=== PATIENT | male | born 1965 | race Caucasian/White ===

== ENCOUNTER 2016-05-14 13:12 | Inpatient (IN) | payer OTHER ==
[~2016-05-14] VITALS: Ht 172.7 cm; Wt 77.3 kg
[~2016-05-14 13:12] MED LIST: AMLO5TAB4 PO; ASPI81TA3 PO; ATOR10TA65 PO; FAMO20TA18 PO; FLUC100T PO; HYDR-3498 PO; LANT3I SC; THIA100T56 PO; VANC1PLA9 IV
--- NOTE | 2016-05-14 15:35 | ERA ---
ER Documentation Chief Complaint Date/Time DATE: 05/14/16 TIME: 15:35 Chief Complaint FEVER/DIZZINESS/RIGHT EYE SWELLING/BILAT FOOT PAIN HPI The patient is a 50-year-old male, presenting to the ER with multiple complaints he complains of right foot acute on chronic pain for 3 days, fever, cough, congestion, for 3 days. He also complained of right eye photophobia for the last 10 days and drooping of the right upper eyelid. He denies neck pain, chest pain, dyspnea, complaints of vague abdominal pain, vomiting, denies dysuria, diarrhea. He is smokes but quit it recently about 2 weeks ago, denies drinking Past medical history: Dyslipidemia, hypertension, diabetes mellitus, peripheral vascular disease, history of left foot osteomyelitis Past surgical history: Left lower extremity vascular bypass ROS All systems reviewed and are negative except as per history of present illness. Medications Home Meds Active Scripts Atorvastatin Calcium (Atorvastatin Calcium) 10 Mg Tablet, 10 MG PO QHS, #30 TAB Prov:LOUANN MONTIEL MD 01/18/16 Aspirin* (Aspirin* Chew) 81 Mg Tab.chew, 81 MG PO DAILY, #30 TAB.CHEW Prov:LOUANN MONTIEL MD 12/26/15 Insulin Glargine* (Lantus*) 100 Unit/Ml Soln, 25 UNIT SC QHS, #1 VIAL Prov:LOUANN MONTIEL MD 12/26/15 Reported Medications Insulin Lispro (Humalog Kwikpen U-100) 100 Unit/1 Ml Insuln.pen, 10 UNIT SQ BEFORE MEALS 05/14/16 Hydrocodone/Acetaminophen ([place] 10-325 Tablet) 1 Each Tablet, 1 EACH PO Q4H, TAB 05/14/16 Discontinued Scripts Fluconazole* (Diflucan*) 100 Mg Tablet, 100 MG PO DAILY, #30 TAB Prov:LOUANN MONTIEL MD 12/26/15 Vancomycin/0.9 % Sod Chloride (Vanco 1 Gram/250 ml-0.9% NaCl) 1 Gm/250 Ml Plast..bag, 1 GM IV DAILY, #45 Prov:LOUANN MONTIEL MD 12/26/15 Amlodipine Besylate* (Norvasc*) 5 Mg Tablet, 5 MG PO DAILY, #30 TAB Prov:LOUANN MONTIEL MD 12/26/15 Thiamine* (Vitamin B-1*) 100 Mg Tablet, 100 MG PO DAILY, #30 TAB Prov:LOUANN MONTIEL MD 12/26/15 Hydrocodone Bit-Acetaminophen (Hydrocodone Bit-APAP) 5-325MG Tablet, 1 TAB PO Q6H Y for MODERATE PAIN LEVEL 4-6, #1 TAB Prov:LOUANN MONTIEL MD 12/26/15 Famotidine* (Famotidine*) 20 Mg Tablet, 20 MG PO DAILY, #30 TAB Prov:LOUANN MONTIEL MD 12/26/15 Allergies Allergies: Coded Allergies: No Known Allergy (Unverified , 05/14/16) PMhx/Soc History of Surgery: Yes (see notes) Anesthesia Reaction: No Hx Neurological Disorder: No Hx Respiratory Disorders: No Hx Cardiac Disorders: No Hx Psychiatric Problems: No Hx Miscellaneous Medical Probl: No Hx Alcohol Use: No Hx Substance Use: No Hx Tobacco Use: No Physical Exam Vitals Vital Signs Date Time Temp Pulse Resp B/P Pulse Ox O2 Delivery O2 Flow Rate FiO2 05/14/16 18:05 98.8 106 16 111/60 96 Room Air 05/14/16 14:08 103.6 152 23 92/52 97 Physical Exam Const: No acute distress. Head: Atraumatic. Eyes: Normal Conjunctiva. Right ptosis, no eye entrapment ENT: Normal External Ears, Nose and Mouth. Neck: Full range of motion. No meningismus. Resp: Clear to auscultation bilaterally. Cardio: Regular rate and rhythm, no murmurs. Abd: Soft, non distended, normal bowel sounds, non tender. Skin: No petechiae or rashes. Back: No midline or flank tenderness. Ext: No cyanosis, or edema. Chronic plantar right foot ulcer with erythema edema Neur: Awake and alert. No focal deficit Psych: Normal Mood and Affect. Result Diagram: 05/14/16 1550 05/14/16 1550 Results 24 hrs Laboratory Tests Test 05/14/16 15:50 05/14/16 15:54 Activated Partial Thromboplast Time 40.5Sec Alanine Aminotransferase (ALT/SGPT) 26IU/L Albumin 2.8g/dl Albumin/Globulin Ratio 0.73 Alkaline Phosphatase 206IU/L Anion Gap 14 Aspartate Amino Transf (AST/SGOT) 47IU/L Blood Morphology Comment Blood Urea Nitrogen 40mg/dl Calcium Level 8.4mg/dl Carbon Dioxide Level 29mmol/L Chloride Level 100mmol/L Creatinine 2.25mg/dl Direct Bilirubin 0.00mg/dl Erythrocyte Sedimentation Rate 126mm/Hr Globulin 3.80g/dl Glucose Level 170mg/dl Hematocrit 32.6% Hemoglobin 11.0g/dl INR International Normalized Ratio 1.16 Indirect Bilirubin 0.0mg/dl Lactic Acid Level 2.2mmol/L Lymphocytes # 0.310^3/ul Lymphocytes % 2.0% Mean Corpuscular Hemoglobin 28.1pg Mean Corpuscular Hemoglobin Concent 33.7g/dl Mean Corpuscular Volume 83.4fl Mean Platelet Volume 8.9fl Monocytes # 0.310^3/ul Monocytes % 2.0% Neutrophils # 13.210^3/ul Neutrophils % 96.0% Platelet Count 89096^3/UL Potassium Level 4.3mmol/L Prothrombin Time 14.9Sec Prothrombin Time Ratio 1.2 Red Blood Count 3.9010^6/ul Red Cell Distribution Width 16.6% Sodium Level 139mmol/L Total Bilirubin 0.0mg/dl Total Protein 6.6g/dl Troponin I 0.073ng/ml White Blood Count 13.810^3/ul Bedside Glucose 196mg/dL Current Medications Medications (Trade) Dose Ordered Sig/[place] Route PRN Reason Start Time Stop Time Status Last Admin Dose Admin Sodium Chloride (NS) 2,330 ml @ 2,330 mls/hr BOLUS X1 ONCE IV 05/14/16 16:00 05/14/16 16:59 DC 05/14/16 16:13 Acetaminophen 650 mg 650 mg ONCE ONCE PO 05/14/16 16:00 05/14/16 16:01 DC 05/14/16 16:09 Vancomycin HCl 250 ml @ 125 mls/hr ONCE IVPB 05/14/16 16:00 05/14/16 17:59 DC 05/14/16 17:09 Piperacillin Sod/ Tazobactam Sod (Zosyn 3.375gm/ 100 ml (Pmx)) 100 ml @ 200 mls/hr ONCE ONCE IVPB 05/14/16 16:00 05/14/16 16:34 DC 05/14/16 16:13 Ondansetron HCl (Zofran Inj) 4 mg ONCE STAT IV 05/14/16 16:14 05/14/16 16:15 DC 05/14/16 16:25 Ondansetron HCl 4 mg 4 mg STK-MED ONCE .ROUTE 05/14/16 16:14 05/14/16 16:15 DC Piperacillin Sod/ Tazobactam Sod (Zosyn 2.25gm/ 50ml (Pmx)) 50 ml @ 100 mls/hr ONCE ONCE IVPB 05/14/16 17:00 05/14/16 17:29 Cancel Morphine Sulfate (morphine) 2 mg ONCE ONCE IV 05/14/16 17:30 05/14/16 17:31 DC 05/14/16 17:21 Ondansetron HCl (Zofran Inj) 4 mg ONCE STAT IV 05/14/16 17:08 05/14/16 17:10 DC 05/14/16 17:20 IV Flush (NS 3 ml) 3 ml PER PROTOCOL IV 05/14/16 17:30 UNV Ondansetron HCl (Zofran Inj) 4 mg Q6H PRN IV NAUSEA AND/OR VOMITING 05/14/16 17:30 UNV Acetaminophen (Tylenol Tab) 650 mg Q6H PRN PO PAIN LEVEL 1-3 OR FEVER 05/14/16 17:30 UNV Acetaminophen/ Hydrocodone Bitart ([place] (5/325)) 1 tab Q6H PRN PO MODERATE PAIN LEVEL 4-6 05/14/16 17:30 UNV Morphine Sulfate (morphine) 2 mg Q4H PRN IV SEVERE PAIN LEVEL 7-10 05/14/16 17:30 UNV Docusate Sodium (Colace) 100 mg Q12H PRN PO CONSTIPATION 05/14/16 17:30 UNV Magnesium Hydroxide (Milk Of Mag) 30 ml DAILY PRN PO CONSTIPATION 05/14/16 17:30 UNV Sodium Biphosphate/ Sodium Phosphate (Fleet Enema) 133 ml DAILY PRN AR CONSTIPATION 05/14/16 17:30 UNV Famotidine (Pepcid) 20 mg Q12 PO 05/14/16 21:00 UNV Lorazepam 0.5 mg 0.5 mg Q6H PRN IV ANXIETY 05/14/16 17:30 UNV Sodium Chloride (NS) 1,000 ml @ 100 mls/hr Q10H IV 05/14/16 17:06 UNV Albuterol/ Ipratropium 3 ml 3 ml Q4H RESP THERAPY PRN HHN SHORTNESS OF BREATH 05/14/16 17:30 UNV Piperacillin Sod/ Tazobactam Sod (Zosyn 3.375gm/ 100 ml (Pmx)) 100 ml @ 200 mls/hr Q6 IVPB 05/14/16 18:00 UNV Vancomycin HCl (Vanco Iv Per Pharmacy) VANCOMYCIN PER PHARMACY NOTE XX 05/14/16 17:30 UNV Hydralazine HCl (Apresoline) 10 mg Q6H PRN IV ELEVATED BLOOD PRESSURE 05/14/16 17:30 UNV Nitroglycerin (Nitroglycerin (Sl Tab) 0.4 Mg) 1 tab Q5M PRN SL ANGINA 05/14/16 17:30 UNV Insulin Aspart (Novolog Insulin Pen) NOVOLOG *MILD* ALGORI... Q4 SC 05/14/16 21:00 UNV Miscellaneous Information (* Miscellaneous Pharmacy Order) HYPOGLYCEMIA PROTOCOL w... ONCE ONCE XX 05/14/16 17:30 05/14/16 17:31 UNV Miscellaneous Information (* Miscellaneous Pharmacy Order) Discontinue Glyburide, Glipizide,... ONCE ONCE XX 05/14/16 17:30 05/14/16 17:31 UNV Miscellaneous Information (* Miscellaneous Pharmacy Order) Discontinue all previ... ONCE ONCE XX 05/14/16 17:30 05/14/16 17:31 UNV Aspirin (Aspirin) 81 mg DAILY PO 05/15/16 09:00 UNV Atorvastatin Calcium (Lipitor) 10 mg QHS PO 05/14/16 21:00 UNV Insulin Glargine (Lantus) 25 unit QHS SC 05/14/16 21:00 UNV Miscellaneous Information 10 unit BEFORE MEALS SQ 05/14/16 17:30 UNV Procedures/[place] [id number] Radiology Main Line: [phone] DIAGNOSTIC IMAGING REPORT Patient: IKER GONZALEZ : 1965 Age: 50 Sex: M MR #: [id number] DOS: 05/14/16 1544 Ordering MD: LYNDSEY RAMÍREZ MD Location: E/R Room/Bed: PROCEDURE: XR right foot. CLINICAL INDICATION: Sepsis TECHNIQUE: Three views are available for review. COMPARISON: 12/21/2015 FINDINGS: There is soft tissue swelling with gas in the soft tissues overlying the first metatarsal head (cellulitis). There is no radiographic evidence of osteomyelitis. There is normal mineralization. There is a hallux valgus deformity. There is moderate first metatarsal proximal phalangeal osteoarthrosis. There is a probable second metatarsal proximal phalangeal arthroplasty. No fracture or osseous lesion is identified. The joints are unremarkable. IMPRESSION: Soft tissue swelling with gas in the soft tissues overlying the first metatarsal head (cellulitis) No radiographic evidence of osteomyelitis Hallux valgus deformity. Moderate first metatarsal proximal phalangeal osteoarthrosis RPTAT: HGDB .Say Us MD, MD Date Time Electronically viewed and signed by .Say Us MD, MD on 05/14/2016 16:48 .B/ CC: LYNDSEY RAMÍREZ MD [place] [id number] Radiology Main Line: [phone] DIAGNOSTIC IMAGING REPORT Patient: IKER GONZALEZ : 1965 Age: 50 Sex: M MR #: [id number] DOS: 05/14/16 1544 Ordering MD: LYNDSEY RAMÍREZ MD Location: E/R Room/Bed: PROCEDURE: XR Chest. CLINICAL INDICATION: Sepsis TECHNIQUE: Chest AP portable COMPARISON: 12/22/2015 FINDINGS: The mediastinal structures are unremarkable. There is calcification of the thoracic aorta (consistent with atherosclerosis). The heart is normal in size and configuration. The pulmonary vascularity is normal. The lung baires are unremarkable. No consolidation is identified. The pleural spaces are unremarkable. The osseous structures are unremarkable. IMPRESSION: Calcification of the thoracic aorta (consistent with atherosclerosis). No evidence for active cardiopulmonary disease. RPTAT: HGDB .Say Us MD, MD Date Time Electronically viewed and signed by .Say Us MD, MD on 05/14/2016 16:34 .B/ CC: LYNDSEY RAMÍREZ MD EKG: Read by emergency physician Rate/Rhythm: Sinus tachycardia 110 beats per min QRS, ST, T-waves: No ST elevation, no T wave inversion Impression: Abnormal EKG MEDICAL MAKING DECISION: The patient is a 50-year-old male, presenting with acute severe sepsis, acute right foot diabetic ulcer, acute kidney injury, acute binocular diplopia and right ptosis. He was treated with normal saline 30 mL/kg IV, vancomycin IV, Zosyn IV, morphine 2 mg IV for pain and Zofran 4 mg IV for nausea and Tylenol for fever with good response. The differential diagnoses considered include but are not limited to osteomyelitis, gangrene, abscess, pneumonia, cystitis Admit MDM: Patient's infectious symptoms have not stabilized and the patient is at risk of rapid decompensation. The patient will be admitted for careful hydration, antibiotic therapy, and infectious source control. Severe Sepsis criteria: Infectious source: Right foot diabetic ulcer End organ damage indicated by: Lactate > 2.0 mmol/L Sepsis Management: Time of recognition of severe sepsis/septic shock: 4 pm Within 3 hours of recognition: Blood cultures x 2 before broad-spectrum antibiotics: Yes 30 ml/kg NS bolus completed Initial lactate 2.2 Repeat lactate pending Critical Care: Critical care time 35 minutes Emergent fluid management while maintaining close respiratory support. Provision of immediate and broad-spectrum antibiotic therapy. Simultaneous assessment for possible sources in order to direct targeted therapy. Consideration for invasive and chemical support to prevent cardiopulmonary collapse. Septic Shock Assessment: Any lactic acid > 4.0 no Persistent hypotension (SBP < 90 or 40 mmHg drop, MAP < 65) despite 30 mL/kg IV fluid bolusno Departure Diagnosis: Primary Impression: Severe sepsis Additional Impressions: Diabetic ulcer of right foot Acute kidney injury Binocular vision disorder with diplopia Ptosis, right Anemia Abnormal LFTs Condition: Stable Comments I discussed the findings with the patient. I discussed the patient with the hospitalist Dr. Bee who was made aware of the lab, the treatment, the patient condition. The patient is admitted to medical surgery bed at 4:30 PM LYNDSEY RAMÍREZ MD May 14, 2016 15:35
[2016-05-14] MEDS ORDERED: ACETAMINOPHEN 325 MG TAB PO ONE (16:00)
[2016-05-14] MEDS ORDERED: PIPER-TAZO 3.375 GM IV (PMX) 100 ML IVPB ONE (16:00)
[2016-05-14] MEDS ORDERED: VANCOMYCIN 1 GM (PMX) 250 ML IVPB SCH (16:00)
[2016-05-14] MEDS ORDERED: SOD CHLORIDE 0.9% 2,330 ML IV ONE (16:00)
[2016-05-14] MEDS ORDERED: ONDANSETRON 4 MG INJ ONE (16:14)
[2016-05-14] MEDS ORDERED: ONDANSETRON 4 MG INJ IV STA ×2 (16:14→17:08)
[2016-05-14 16:18] LABS: HEMATOCRIT 32.6 % (42.0-52.0); MEAN CORPUSCULAR HEMOGLOBIN 28.1 pg (29.0-33.0); MEAN CORPUSCULAR HGB CONC 33.7 g/dl (32.0-37.0); MEAN CORPUSCULAR VOLUME 83.4 fl (82.0-101.0); MEAN PLATELET VOLUME 8.9 fl (7.4-10.4); PLATELET COUNT 276 10^3/UL (140-440); RED CELL DISTRIBUTION WIDTH 16.6 % (11.5-14.5); UNCORRECTED WBC 13.8 10^3/ul (4.8-10.8); WHITE BLOOD COUNT 13.8 10^3/ul (4.8-10.8)
[2016-05-14 16:21] LABS: CONDITION 1; INR 1.16; LH ANALYZER COMMENTS 1; PROTIME 14.9 Sec (12.2-14.2); PT RATIO 1.2; SUSPECT 1
[2016-05-14 16:22] LABS: PARTIAL THROMBOPLASTIN TIME 40.5 Sec (25.0-35.0)
[2016-05-14 16:23] LABS: ALBUMIN 2.8 g/dl (3.3-4.9)
[2016-05-14 16:24] LABS: POTASSIUM 4.3 mmol/L (3.5-5.1)
[2016-05-14 16:26] LABS: ALBUMIN/GLOBULIN RATIO 0.73; CREATININE 2.25 mg/dl (0.61-1.24); TOTAL PROTEIN 6.6 g/dl (6.1-8.1)
[2016-05-14 16:27] LABS: CALCIUM 8.4 mg/dl (8.4-10.2)
[2016-05-14] MEDS ORDERED: HYDR-902 PO (16:28)
[2016-05-14] MEDS ORDERED: INSU100I12 SQ (16:29)
[2016-05-14 16:35] LABS: LYMPHOCYTES # 0.3 10^3/ul (0.8-2.9); MONOCYTE # 0.3 10^3/ul (0.3-0.9); NEUTROPHIL # 13.2 10^3/ul (1.6-7.5)
--- NOTE | 2016-05-14 16:35 | RADRPT ---
PROCEDURE: XR Chest. CLINICAL INDICATION: Sepsis TECHNIQUE: Chest AP portable COMPARISON: 12/22/2015 FINDINGS: The mediastinal structures are unremarkable. There is calcification of the thoracic aorta (consiste nt with atherosclerosis). The heart is normal in size and configuration. The pulmonary vascularity is normal. The lung baires are unremarkable. No consolidation is identified. The pleural spaces are unremarkable. The osseous structures are unremarkable. IMPRESSION: Calcification of the thoracic aorta (consistent with atherosclerosis). No evidence for active cardiopulmonary disease. RPTAT: HGDB .Say Us MD, MD Date Time Electronically viewed and signed by .Say Us MD, on 05/14/2016 16:34 .B/
[2016-05-14 16:38] LABS: TROPONIN-I 0.073 ng/ml (0.00-0.12)
--- NOTE | 2016-05-14 16:49 | RADRPT ---
PROCEDURE: XR right foot. CLINICAL INDICATION: Sepsis TECHNIQUE: Three views are available for review. COMPARISON: 12/21/2015 FINDINGS: There is soft tissue swelling with gas in the soft tissues overlying the first metatarsal head (cell ulitis). There is no radiographic evidence of osteomyelitis. There is normal mineralization. There is a hallux valgus deformity. There is moderate first metata rsal proximal phalangeal osteoarthrosis. There is a probable second metatarsal proximal phalangeal a rthroplasty. No fracture or osseous lesion is identified. The joints are unremarkable. IMPRESSION: Soft tissue swelling with gas in the soft tissues overlying the first metatarsal head (cellulitis) No radiographic evidence of osteomyelitis Hallux valgus deformity. Moderate first metatarsal proximal phalangeal osteoarthrosis RPTAT: HGDB .Say Us MD, Date Time Electronically viewed and signed by .Say Us MD, on 05/14/2016 16:48 .B/
[2016-05-14] MEDS ORDERED: PIPER-TAZO 2.25 GM (PMX) 50 ML IVPB ONE (17:00)
[2016-05-14] MEDS ORDERED: LORAZEPAM 2 MG INJ IV PRN (17:30)
[2016-05-14] MEDS ORDERED: morphine 2 MG INJ IV ONE (17:30)
[2016-05-14] MEDS ORDERED: ALBUTEROL/IPRATROPIUM (NEB) 3 ML AMP HHN PRN (17:30)
[2016-05-14] MEDS ORDERED: DOCUSATE SODIUM 100 MG CAP PO PRN (17:30)
[2016-05-14] MEDS ORDERED: VANCOMYCIN IV PER PHARMACY XX SCH (17:30)
[2016-05-14] MEDS ORDERED: NITROGLYCERIN (SL) 0.4 MG TAB SL PRN (17:30)
[2016-05-14] MEDS ORDERED: NA PHOSPHATE/BIPHOS 133 ML ENEMA PR PRN (17:30)
[2016-05-14] MEDS ORDERED: NACL 0.9% 3 ML SYG IV SCH (17:30)
[2016-05-14] MEDS ORDERED: MAGNESIUM HYDROXIDE 30ML CUP PO PRN (17:30)
[2016-05-14] MEDS ORDERED: GLUCAGON 1 MG INJ IM PRN (19:30)
[2016-05-14] MEDS ORDERED: GLUCOSE GEL 15 GRAM TUBE PO PRN ×2 (19:30)
[2016-05-14] MEDS ORDERED: DEXTROSE 50% 50 ML SYRINGE IV PRN ×2 (19:30)
[2016-05-14] MEDS ORDERED: GLUCOSE GEL 15 GRAM TUBE BUCCAL PRN (19:30)
[2016-05-14 20:15] VITALS: TEMP 98.2
--- NOTE | 2016-05-14 20:35 | HP ---
DATE OF ADMISSION: 05/14/2016 CHIEF COMPLAINT: Right foot pain. HISTORY OF PRESENT ILLNESS: A 50-year-old male with past medical history of high cholesterol, hyper tension, type 2 diabetes, peripheral vascular disease, left foot osteomyelitis and vascular bypass s urgery in the left lower extremity who presents complaining of last 3 days of right foot pain and sw elling. He has also been having some subjective fevers at home and some mild chest pressure. He soto s also been having some discharge from the right foot from an ulcer, a combination of blood and pus, at home. He became concerned and called his entry level marketing representative, Dr. Craven, who told to come to the ER tod ay as well. Per ER records, he has also been having some right eye photophobia for the last 10 days and some drooping of the right upper eyelid. No nausea, vomiting, no diarrhea, no constipation. aJckie ritchie says he quit smoking about 2 weeks ago. When he came into the ER today, he had a fever of 103.6 a nd a white count of 14,000. PAST MEDICAL HISTORY: As stated above. ALLERGIES: NO KNOWN DRUG ALLERGIES. HOME MEDICATIONS: 1. Atorvastatin 10 mg p.o. at bedtime. 2. Aspirin 81 p.o. daily. 3. [place] 10/325 q.4h. p.r.n. 4. Lantus 25 units at bedtime. 5. Lispro or Humulin insulin 10 units before meals. PAST SURGICAL HISTORY: Again, he had a left lower extremity vascular bypass surgery and also left f oot surgery in the past. SOCIAL HISTORY: Again, former smoker, just quit 2 weeks ago. Denies drinking. No IV drug abuse. PHYSICAL EXAMINATION: VITAL SIGNS: T-max 103.6, pulse 152 to 106, respirations 23 to 16, blood pressure 92 to 111 systoli c over 58 to 60 diastolic, saturating at 96% on room air. GENERAL: The patient is lying in bed, answering questions appropriately. No acute distress. HEENT: The left eye pupil is equal, round, reactive to light. Extraocular muscles intact. Right e ye shows some ptosis. There is no eye entrapment. NECK: Supple. No thyromegaly. LUNGS: Clear to auscultation bilaterally. CARDIOVASCULAR: S1, S2 heard. No murmurs, rubs, gallops. ABDOMEN: Soft, nontender, nondistended. Normal bowel sounds. No rebound or guarding. NEUROLOGIC: No focal deficits. MUSCULOSKELETAL: There is no lower extremity edema bilaterally. On the right foot, there is an ulc er at the base between the first and second digits some right foot swelling with some erythema and e lucia noted. No active discharge noted. LABORATORIES: WBC 13.8, hemoglobin 11.0, hematocrit 33.6, platelets 276. Sodium 139, potassium 4.T hree, chloride 100, CO2 of 29, BUN 40, creatinine 2.25, glucose 170. Chest x-ray, no evidence of an y active cardiopulmonary disease. There is a foot x-ray of the right foot. No radiographic evidence of osteomyelitis, but there is soto llux valgus deformity and there soft tissue swelling with gas in the soft tissues overlying the firs t metatarsal head. Signs of cellulitis. There is moderate first metatarsal and proximal phalangeal osteoarthrosis. ASSESSMENT AND PLAN: A 50-year-old male coming in with right foot pain and swelling along with feve rs for the last 3 days with signs of diabetic foot ulcers. 1. Right foot ulcer. Again, continue broad-spectrum antibiotics. Podiatry and vascular surgery co nsults. IV fluids as well. Check TSH, A1c, lipid panel. Follow up culture results. Tylenol p.r.n . pain and fevers. 2. Essential hypertension. He is on hydralazine p.r.n. Blood pressure is probably stable. 3. Sepsis, most likely secondary to right foot infection. Again, see #1. Continue broad-spectrum antibiotics and IV fluids. 4. High cholesterol. Check a lipid panel. Continue Lipitor. 5. Type 2 diabetes. Again, check A1c. Put him back on his home insulin regimen. Consider diabeti c educator consult. 6. History of peripheral vascular disease. We are going to get vascular surgery consult. Consider right foot MRI. 7. Right eye ptosis, unclear source. Consider infectious disease consult. Continue to monitor for now. 8. Gastrointestinal prophylaxis. Keep him on H2 lyn[place]. 9. Deep venous thrombosis prophylaxis. He is on heparin subq. Dictated By: ESPERANZA GLEASON Conf#: [id number] DID#: [id number]
[2016-05-14 21:00] VITALS: BP 112/66; RESP 18
[2016-05-14] MEDS ORDERED: INSULIN ASPART [NOVOLOG] 3 ML PEN SC SCH (21:00)
[2016-05-14] MEDS: SOD CHLORIDE 0.9% 1,000 ML IV SCH (21:37)
[2016-05-14] MEDS: INSULIN GLARGINE [LANtus] 3 ML PEN SC SCH (21:53)
[2016-05-14] MEDS: ATORVASTATIN 10 MG TAB PO SCH (22:42)
[2016-05-14] MEDS: FAMOTIDINE 20 MG TAB PO SCH (22:43)
[2016-05-14 22:51] VITALS: Ht 172.7 cm; Wt 77.3 kg
[2016-05-14] MEDS ORDERED: ZOLPIDEM 5 MG TAB PO PRN (23:00)
[2016-05-14] MEDS: HEPARIN 5,000 UNIT/0.5 ML SYG SC SCH (23:02)
[2016-05-14] MEDS: morphine 2 MG INJ IV PRN (23:07)
[2016-05-14] MEDS: PIPER-TAZO 3.375 GM IV (PMX) 100 ML IVPB SCH (23:30)
[2016-05-15] MEDS: SOD CHLORIDE 0.9% 1,000 ML IV SCH ×4 (03:06→23:06)
[2016-05-15] MEDS: ONDANSETRON 4 MG INJ IV PRN ×3 (04:34→23:47)
[2016-05-15] MEDS: morphine 2 MG INJ IV PRN ×5 (04:34→21:35)
[2016-05-15] MEDS: PIPER-TAZO 3.375 GM IV (PMX) 100 ML IVPB SCH ×3 (06:13→17:31)
[2016-05-15 06:21] LABS: ADD UMIC YES; URINE BILIRUBIN (Dip) NEGATIVE (NEGATIVE); URINE BLOOD (Dip) 2+ (NEGATIVE); URINE COLOR YELLOW (YELLOW); URINE GLUCOSE (Dip) NEGATIVE (NEGATIVE); URINE KETONES (Dip) NEGATIVE (NEGATIVE); URINE LEUKOCYTE ESTERASE (Dip) NEGATIVE (NEGATIVE); URINE NITRITE (Dip) NEGATIVE (NEGATIVE); URINE TOTAL PROTEIN (Dip) 4+ (NEGATIVE); URINE UROBILINOGEN (Dip) 2.0 E.U./dL (0.1-1.0)
[2016-05-15 07:02] LABS: CHOL/HDL RATIO 7.2 RATIO
[2016-05-15 07:23] LABS: THYROID STIMULATING HORMONE 1.94 MIU/L (0.465-4.680)
[2016-05-15 07:29] VITALS: BP 126/69; RESP 18
[2016-05-15] MEDS: ASPIRIN 81 MG TAB PO SCH (08:01)
[2016-05-15] MEDS: FAMOTIDINE 20 MG TAB PO SCH (08:01)
[2016-05-15] MEDS: INSULIN ASPART [NOVOLOG] 3 ML PEN SC SCH ×7 (08:09→21:00)
[2016-05-15 08:18] LABS: POTASSIUM 4.4 mmol/L (3.5-5.1)
[2016-05-15 08:21] LABS: CREATININE 1.49 mg/dl (0.61-1.24)
[2016-05-15 08:22] LABS: CALCIUM 7.3 mg/dl (8.4-10.2); MAGNESIUM 2.6 mg/dl (1.7-2.5); PHOSPHORUS 4.4 mg/dl (2.5-4.9)
[2016-05-15] MEDS: HEPARIN 5,000 UNIT/0.5 ML SYG SC SCH ×2 (08:23→23:50)
[2016-05-15 08:29] LABS: BASOPHILS % 0.3 % (0.0-2.0); EOSINOPHILS % 0.5 % (0.0-7.0); HEMATOCRIT 29.1 % (42.0-52.0); HEMOGLOBIN 9.5 g/dl (14.0-18.0); LYMPHOCYTES # 1.1 10^3/ul (0.8-2.9); LYMPHOCYTES % 10.4 % (15.0-51.0); MEAN CORPUSCULAR HEMOGLOBIN 27.8 pg (29.0-33.0); MEAN CORPUSCULAR HGB CONC 32.7 g/dl (32.0-37.0); MEAN CORPUSCULAR VOLUME 84.9 fl (82.0-101.0); MEAN PLATELET VOLUME 9.8 fl (7.4-10.4); MONOCYTES % 9.1 % (0.0-11.0); NEUTROPHIL # 8.6 10^3/ul (1.6-7.5); NEUTROPHILS % 79.7 % (39.0-77.0); PLATELET COUNT 263 10^3/UL (140-440); RED BLOOD COUNT 3.43 10^6/ul (4.70-6.10); UNCORRECTED WBC 10.8 10^3/ul (4.8-10.8); WHITE BLOOD COUNT 10.8 10^3/ul (4.8-10.8)
[2016-05-15 08:40] LABS: CONDITION 1; LH ANALYZER COMMENTS 1
--- NOTE | 2016-05-15 08:47 | PN ---
Date/Time of Note Date/Time of Note DATE: 05/15/16 TIME: 08:45 Assessment/Plan VTE Prophylaxis VTE Prophylaxis Intervention: heparin Lines/Catheters IV [facility] (from [facility]): Peripheral IV Assessment/Plan Chief Complaint/Hosp Course ASSESSMENT AND PLAN: A 50-year-old male coming in with right foot pain and swelling along with fevers for the last 3 days with signs of right diabetic foot ulcer. 1. Right foot ulcer. Again, continue broad-spectrum antibiotics. - f/u Podiatry and vascular surgery consult rec's. IV fluids as well. - Follow up culture results. Tylenol p.r.n. pain and fevers. - MRI foot 2. Essential hypertension. He is on hydralazine p.r.n. Blood pressure is presently stable. 3. Sepsis, most likely secondary to right foot infection. Again, see #1. Continue broad-spectrum antibiotics and IV fluids. 4. High cholesterol. Continue Lipitor. 5. Type 2 diabetes. Again, check A1c. Put him back on his home insulin regimen. Consider clinical systems educator consult. 6. History of peripheral vascular disease - f/u vascular surgery consult, Right foot MRI. 7. Right eye ptosis, unclear source. Consider infectious disease consult. Continue to monitor for now. 8. Gastrointestinal prophylaxis. Keep him on H2 lynsey. 9. Deep venous thrombosis prophylaxis. He is on heparin subq. Problems: Subjective 24 Hr Interval Summary Free Text/Dictation No acute events overnight. Exam/Review of Systems Vital Signs Vitals Vital Signs Date Time Temp Pulse Resp B/P Pulse Ox O2 Delivery O2 Flow Rate FiO2 05/15/16 07:29 98.0 90 18 126/69 96 05/14/16 20:15 Room Air Intake and Output 05/14/16 05/14/16 05/15/16 15:00 23:00 07:00 Intake Total 2680 ml 1330 ml Output Total 500 ml Balance 2680 ml 830 ml Exam GENERAL: The patient is lying in bed, answering questions appropriately. No acute distress. HEENT: The left eye pupil is equal, round, reactive to light. Extraocular muscles intact. Right eye shows some ptosis. There is no eye entrapment. NECK: Supple. No thyromegaly. LUNGS: Clear to auscultation bilaterally. CARDIOVASCULAR: S1, S2 heard. No murmurs, rubs, gallops. ABDOMEN: Soft, nontender, nondistended. Normal bowel sounds. No rebound or guarding. NEUROLOGIC: No focal deficits. MUSCULOSKELETAL: There is no lower extremity edema bilaterally. On the right foot, there is an ulcer at the base between the first and second digits some right foot swelling with some erythema and edema noted. No active discharge noted. Results Result Diagram: 05/15/16 0500 05/15/16 0500 Results 24 hrs Laboratory Tests Test 05/14/16 15:50 05/14/16 15:54 05/14/16 19:20 05/14/16 21:50 Activated Partial Thromboplast Time 40.5 H Alanine Aminotransferase (ALT/SGPT) 26 Albumin 2.8 L Albumin/Globulin Ratio 0.73 Alkaline Phosphatase 206 H Anion Gap 14 Aspartate Amino Transf (AST/SGOT) 47 H Blood Morphology Comment Blood Urea Nitrogen 40 H Calcium Level 8.4 Carbon Dioxide Level 29 Chloride Level 100 Creatinine 2.25 H Direct Bilirubin 0.00 Erythrocyte Sedimentation Rate 126 H Free Thyroxine 0.99 Globulin 3.80 H Glucose Level 170 Hematocrit 32.6 L Hemoglobin 11.0 #L INR International Normalized Ratio 1.16 Indirect Bilirubin 0.0 Lactic Acid Level 2.2 1.1 1.3 Lymphocytes # 0.3 L Lymphocytes % 2.0 L Mean Corpuscular Hemoglobin 28.1 L Mean Corpuscular Hemoglobin Concent 33.7 Mean Corpuscular Volume 83.4 Mean Platelet Volume 8.9 Monocytes # 0.3 Monocytes % 2.0 Neutrophils # 13.2 H Neutrophils % 96.0 H Platelet Count 276 Potassium Level 4.3 Prothrombin Time 14.9 H Prothrombin Time Ratio 1.2 Red Blood Count 3.90 L Red Cell Distribution Width 16.6 H Sodium Level 139 Total Bilirubin 0.0 L Total Protein 6.6 Troponin I 0.073 White Blood Count 13.8 #H Bedside Glucose 196 Test 05/15/16 03:24 05/15/16 05:00 05/15/16 05:06 05/15/16 05:19 Bedside Glucose 147 Anion Gap 13 Basophils # 0.0 Basophils % 0.3 Blood Morphology Comment Blood Urea Nitrogen 33 H Calcium Level 7.3 L Carbon Dioxide Level 25 Chloride Level 107 Creatinine 1.49 H Eosinophils # 0.0 Eosinophils % 0.5 Glucose Level 103 # Hematocrit 29.1 L Hemoglobin 9.5 L Lymphocytes # 1.1 Lymphocytes % 10.4 L Magnesium Level 2.6 H Mean Corpuscular Hemoglobin 27.8 L Mean Corpuscular Hemoglobin Concent 32.7 Mean Corpuscular Volume 84.9 Mean Platelet Volume 9.8 Monocytes # 1.0 H Monocytes % 9.1 Neutrophils # 8.6 H Neutrophils % 79.7 H Nucleated Red Blood Cells # 0.0 Nucleated Red Blood Cells % 0.0 Phosphorus Level 4.4 Platelet Count 263 Potassium Level 4.4 Red Blood Count 3.43 L Red Cell Distribution Width 17.0 H Sodium Level 141 White Blood Count 10.8 # Urine Bilirubin NEGATIVE Urine Clarity CLOUDY H Urine Color YELLOW Urine Glucose NEGATIVE Urine Hemoglobin 2+ H Urine Ketones NEGATIVE Urine Leukocyte Esterase NEGATIVE Urine Microscopic RBC 2-5 Urine Microscopic WBC NONE SEEN Urine Nitrite NEGATIVE Urine Specific [place] >=1.030 H Urine Total Protein 4+ H Urine Urobilinogen 2.0 E.U./dL H Urine pH 5.5 Cholesterol Level 108 Cholesterol/HDL Ratio 7.2 HDL Cholesterol 15 L Hemoglobin A1c 6.3 H LDL Cholesterol, Calculated 50 Thyroid Stimulating Hormone (TSH) 1.940 Triglycerides Level 217 H Test 05/15/16 07:39 Bedside Glucose 88 Medications Medications Current Medications Ondansetron HCl (Zofran Inj) 4 mg Q6H PRN IV NAUSEA AND/OR VOMITING Last administered on 05/15/16 04:34; Admin Dose 4 MG; Start 05/14/16 at 17:30 Acetaminophen (Tylenol Tab) 650 mg Q6H PRN PO PAIN LEVEL 1-3 OR FEVER; Start at 17:30 Acetaminophen/ Hydrocodone Bitart ([place] (5/325)) 1 tab Q6H PRN PO MODERATE PAIN LEVEL 4-6; Start 05/14/16 at 17:30 Morphine Sulfate (morphine) 2 mg Q4H PRN IV SEVERE PAIN LEVEL 7-10 Last administered on 05/15/16 08:02; Admin Dose 2 MG; Start 05/14/16 at 17:30 Docusate Sodium (Colace) 100 mg Q12H PRN PO CONSTIPATION; Start 05/14/16 at 17: 30 Magnesium Hydroxide (Milk Of Mag) 30 ml DAILY PRN PO CONSTIPATION; Start at 17:30 Sodium Biphosphate/ Sodium Phosphate (Fleet Enema) 133 ml DAILY PRN MI CONSTIPATION; Start 05/14/16 at 17:30 Famotidine (Pepcid) 20 mg DAILY PO Last administered on 05/15/16 08:01; Admin Dose 20 MG; Start 05/14/16 at 21:00 Lorazepam 0.5 mg 0.5 mg Q6H PRN IV ANXIETY; Start 05/14/16 at 17:30 Sodium Chloride 1,000 ml @ 100 mls/hr Q10H IV Last administered on 05/14/16 21:37; Admin Dose 100 MLS/HR; Start 05/14/16 at 17:06 Piperacillin Sod/ Tazobactam Sod (Zosyn 3.375gm/ 100 ml (Pmx)) 100 ml @ 200 mls /hr Q6 IVPB Last administered on 05/15/16 06:13; Admin Dose 200 MLS/HR; Start 05/15/16 at 00:00 Vancomycin HCl (Vanco Iv Per Pharmacy) VANCOMYCIN PER PHARMACY NOTE XX ; Start 05/14/16 at 17:30 Hydralazine HCl (Apresoline) 10 mg Q6H PRN IV ELEVATED BLOOD PRESSURE; Start at 17:30 Nitroglycerin (Nitroglycerin (Sl Tab) 0.4 Mg) 1 tab Q5M PRN SL ANGINA; Start at 17:30 Aspirin (Aspirin) 81 mg DAILY PO Last administered on 05/15/16 08:01; Admin Dose 81 MG; Start 05/15/16 at 09:00 Atorvastatin Calcium (Lipitor) 10 mg QHS PO Last administered on 05/14/16 22: 42; Admin Dose 10 MG; Start 05/14/16 at 21:00 Insulin Glargine (Lantus) 25 unit QHS SC Last administered on 05/14/16 21:53; Admin Dose 25 UNIT; Start 05/14/16 at 21:00 Heparin Sodium (Porcine) (Heparin (5000 Units/0.5 ml)) 5,000 unit BID SC Last administered on 05/15/16 08:23; Admin Dose 5,000 UNIT; Start 05/14/16 at 21:00 Miscellaneous Information 1 ea NOTE XX ; Start 05/14/16 at 19:30 Glucose (Glutose) 15 gm Q15M PRN PO DECREASED GLUCOSE; Start 05/14/16 at 19:30 Glucose (Glutose) 22.5 gm Q15M PRN PO DECREASED GLUCOSE; Start 05/14/16 at 19: 30 Dextrose (D50w Syringe) 25 ml Q15M PRN IV DECREASED GLUCOSE; Start 05/14/16 at 19:30 Dextrose (D50w Syringe) 50 ml Q15M PRN IV DECREASED GLUCOSE; Start 05/14/16 at 19:30 Glucagon (Glucagen) 1 mg Q15M PRN IM DECREASED GLUCOSE; Start 05/14/16 at 19:30 Glucose 15 gm 15 gm Q15M PRN BUCCAL DECREASED GLUCOSE; Start 05/14/16 at 19:30 Vancomycin HCl (Vancocin) 250 ml @ 125 mls/hr Q24H IVPB ; Start 05/15/16 at 11: 00 Zolpidem Tartrate (Ambien) 10 mg HS PRN PO INSOMNIA; Start 05/14/16 at 23:00 Influenza Virus Vaccine (Fluzone) 0.5 ml ONCE ONCE IM* ; Start 05/16/16 at 09:00 ; Stop 05/16/16 at 09:01 ESPERANZA HUIZAR May 15, 2016 08:47
[2016-05-15] MEDS ORDERED: VANCOMYCIN 1 GM in NS 250 ML IVPB SCH (11:00)
[2016-05-15] MEDS ORDERED: VANCOMYCIN 1.5 GM in SOD CHLORIDE 0.9% 250 ML IVPB SCH (12:30)
--- NOTE | 2016-05-15 12:56 | RADRPT ---
PROCEDURE: MR Foot. CLINICAL INDICATION: N TECHNIQUE: 1.5 Dianelys scanner: Sagittal T1/inversion recovery, coronal T1/proton-density fat satura tion, axial T1/proton-density fat saturation. COMPARISON: No prior studies are available for comparison. FINDINGS: Anterior are soft tissue defect compatible with nonhealing ulcer. Decreased T1 marrow signal in the proximal first phalanx and first metatarsal head with corresponding T2 signal hyperintensity most co mpatible with marrow edema and osteomyelitis. Extensive subcutaneous gas, edema and/or cellulitis irving rrounding the first metatarsal phalangeal joint at the level of the ulceration compatible gas gangre ne. No evidence of discrete fluid collection to suggest abscess. There are no fractures or dislocations. Marked hallux valgus deformity of the first metatarsal phal angeal joint. Advanced degenerative joint space narrowing and deformity of the second metatarsal ph alangeal joint. The remaining bones of the feet are normal marrow signal without cortical irregular ity. The Lisfranc ligament is normal. IMPRESSION: 1. Marrow signal changes in the first metatarsal head and proximal phalanx compatible with osteomye litis. 2. First metatarsal phalangeal joint plantar skin ulcer with extensive subcutaneous edema and/or ce llulitis with subcutaneous gas throughout the anterior foot compatible with gas gangrene. 3. No evidence of abnormal fluid collection suggest abscess. 4. Marked hallux valgus deformity of the first metatarsal phalangeal joint degenerative changes of t he second metatarsal phalangeal joint with chronic deformity suggestive of remote fracture of the se cond metatarsal head. RPTAT:AAJJ Physician Floyd Date Time Electronically viewed and signed by Physician Floyd on 05/15/2016 12:56 YENNI/
[2016-05-15 20:02] VITALS: BP 131/64; RESP 20
[2016-05-15] MEDS: INSULIN GLARGINE [LANtus] 3 ML PEN SC SCH (21:00)
--- NOTE | 2016-05-15 22:12 | CONS ---
DATE OF ADMISSION: 05/14/2016 DATE OF CONSULTATION: 05/15/2016 TYPE OF CONSULTATION: Vascular surgery consultation. Dear Doctors: HISTORY OF PRESENT ILLNESS: Mr. Schofield is a 50-year-old gentleman known to our vascular surgery service secondary for having bilateral lower extremity atherosclerosis with diabetic foot ulcers in which he had undergone left lower extremity revascularization in order to help him heal his left heel gangrene. The patient has been coming along well from that standpoint. The patient now presents with 3 days of right foot pain and swelling and seems that he presents now with a significant first toe and forefoot diabetic foot infection with having fever and chills. At the moment, the patient has been started on antibiotics and has been evaluated by our podiatry colleagues. The patient also currently an active smoker. PAST MEDICAL HISTORY: Entails hypercholesterolemia, hypertension, type 2 diabetes, bilateral lower extremity atherosclerosis, Charcot foot, left foot osteomyelitis. PAST SURGICAL HISTORY: Left lower extremity revascularization, Femoral to dorsalis pedis in-situ bypass. History of multiple debridements. ALLERGIES: NO KNOWN DRUG ALLERGIES. SOCIAL HISTORY: Active smoker. Denies alcohol or illicit drug use. FAMILY HISTORY: Diabetes and hypertension. PHYSICAL EXAMINATION: GENERAL: Alert and oriented x3, no apparent distress. HEENT: Normocephalic, atraumatic. PERRLA, EOMI. Mucosa moist. NECK: Supple. No carotid bruit. PULMONARY: Clear to auscultation bilaterally. No crackles. CARDIOVASCULAR: S1, S2 present. No murmurs. ABDOMEN: Soft, nontender, nondistended. Bowel sounds positive. LOWER EXTREMITIES: Right lower extremity palpable femoral pulse, nonpalpable pedal pulse, likely secondary to edema of 1 to 2+. Capillary refill 3 to 4 seconds. Significant erythema and swelling and purulent drainage from the plantar aspect of the foot and associated with tenderness. Left lower extremity: Palpable femoral pulse, palpable graft at the ankle. Motor, sensory intact. Capillary refill 2 seconds. His left heel pretty much gangrene almost all healed with a dry callus that much smaller in size since we had seen him last. ASSESSMENT AND PLAN: Bilateral lower extremity atherosclerosis with right lower extremity gangrene: It seems the patient has developed a new right diabetic foot infection associated with his poor compliance with his medical status, active smoker, and not necessarily the best compliance with sugar control. As far as right now, would recommend: 1. Obtaining bilateral lower extremity noninvasive vascular studies in order to better delineate his progression of his atherosclerotic disease. 2. We will also obtain bilateral lower extremity vein mapping in case the patient would require a conduit for revascularization. 3. From a vascular surgery standpoint, would recommend for the patient to undergo incision and drainage if needed for localized control of infection with podiatry and will evaluate his progression of his wound care. 4. Discussed vascular optimization (BP meds, diet, nutrition, exercise, sugar control, antiplatelets). 5. Discussed smoking cessation with the patient and he understands. 6. Discussed findings, plan, and management with the patient and he understands. Thank you for allowing us to partake in the care of your patient. Please call with any questions. Dictated By: AICHA CLARKE/SHANNAN Conf#: [id number] DID#: [id number] CC: ESPERANZA HUIZAR;*EndCC* MTDD
[2016-05-15] MEDS: ATORVASTATIN 10 MG TAB PO SCH (23:47)
[2016-05-16] MEDS: PIPER-TAZO 3.375 GM IV (PMX) 100 ML IVPB SCH ×5 (00:14→23:39)
[2016-05-16] MEDS: SOD CHLORIDE 0.9% 1,000 ML IV SCH ×2 (03:02→08:23)
--- NOTE | 2016-05-16 03:07 | RADRPT ---
PROCEDURE: US Lower extremity Veins. CLINICAL INDICATION: Gangrene. TECHNIQUE: Multiple longitudinal and transverse images of the bilateral lower extremity venous aj e was obtained with merlos scale and color Doppler imaging. COMPARISON: 12/26/2015 FINDINGS: The left greater saphenous vein was reportedly partially used as a bypass for the lower le g previously. LocationRightLeft Groin GSV3.8 mm6.6 mm Upper thigh GSV 3.4 mm4.3 mm Mid thigh GSV 4.2 mm2.0 mm Lower thigh GSV 3 mm2.0 mm Knee GSV 2.9 mmnot seen Upper calf GSV 2.5 mmnot seen Mid calf GSV 2.3 mmnot seen Ankle GSV3.1 mmnot seen IMPRESSION: Prior partial left greater saphenous vein harvesting. Other greater saphenous bilateral measurement s as above. RPTAT: HLBE Physician Marie Date Time Electronically viewed and signed by Jeni Shipley Physician on 05/16/2016 03:07 LE/
--- NOTE | 2016-05-16 05:13 | RADRPT ---
PROCEDURE: US Lower Extremity Arteries. CLINICAL INDICATION: Gangrene TECHNIQUE: Multiple longitudinal and transverse images of the bilateral lower extremity arteries w ere obtained with merlos scale and color Doppler imaging. COMPARISON: No prior studies are available for comparison. FINDINGS: RIGHT: FFK905.1 cm/sec UAZY246.9 cm/sec SWFX922.2 cm/sec KHXJ898.4 cm/sec IMZ992.9 cm/sec MLX276.4 cm/sec DPA97.9 cm/sec LEFT: JGF339.8 cm/sec NJHD333.7 cm/sec NVLM130.1 cm/sec UTZR455.4 cm/sec AVF737.4 cm/sec PTA53.6 cm/sec FJF436.5 cm/sec Triphasic wave forms are seen within the right common femoral artery. Elevated velocities are noted within the right superficial femoral artery with monophasic flow. Monophasic flow is also noted th roughout the remainder of the right lower extremity arterial system. There are triphasic waveforms within the right common femoral, superficial femoral and popliteal art eries with biphasic wave forms distally. IMPRESSION: Elevated velocities within the right proximal superficial femoral artery with monophasic flow of the right superficial femoral artery and distally. Findings are suggestive of stenosis. A CT or MR an giogram with bilateral lower extremity runoff is recommended for further evaluation. RPTAT:HH .Jayda Grady MD, Date Time Electronically viewed and signed by .Jayda Grady MD, MD on 05/16/2016 05:13 .G/
[2016-05-16 07:25] VITALS: BP 124/58; RESP 16
[2016-05-16] MEDS: INSULIN ASPART [NOVOLOG] 3 ML PEN SC SCH ×7 (07:30→20:59)
[2016-05-16] MEDS: ASPIRIN 81 MG TAB PO SCH (08:16)
[2016-05-16] MEDS: FAMOTIDINE 20 MG TAB PO SCH (08:16)
[2016-05-16] MEDS: ONDANSETRON 4 MG INJ IV PRN ×3 (08:17→17:57)
[2016-05-16] MEDS: morphine 2 MG INJ IV PRN ×4 (08:17→22:40)
[2016-05-16] MEDS: HEPARIN 5,000 UNIT/0.5 ML SYG SC SCH ×2 (08:20→22:09)
[2016-05-16 08:31] LABS: BASOPHILS % 0.3 % (0.0-2.0); EOSINOPHILS % 0.4 % (0.0-7.0); HEMATOCRIT 27.9 % (42.0-52.0); HEMOGLOBIN 9.4 g/dl (14.0-18.0); LYMPHOCYTES # 1.2 10^3/ul (0.8-2.9); LYMPHOCYTES % 9.8 % (15.0-51.0); MEAN CORPUSCULAR HGB CONC 33.6 g/dl (32.0-37.0); MEAN CORPUSCULAR VOLUME 83.5 fl (82.0-101.0); MEAN PLATELET VOLUME 9.3 fl (7.4-10.4); MONOCYTE # 1.1 10^3/ul (0.3-0.9); MONOCYTES % 9.3 % (0.0-11.0); NEUTROPHIL # 9.6 10^3/ul (1.6-7.5); NEUTROPHILS % 80.2 % (39.0-77.0); PLATELET COUNT 277 10^3/UL (140-440); RED BLOOD COUNT 3.35 10^6/ul (4.70-6.10); RED CELL DISTRIBUTION WIDTH 16.7 % (11.5-14.5)
[2016-05-16 08:34] LABS: CONDITION 1; LH ANALYZER COMMENTS 1
[2016-05-16 08:42] LABS: POTASSIUM 4.1 mmol/L (3.5-5.1)
[2016-05-16 08:44] LABS: CREATININE 1.15 mg/dl (0.61-1.24)
[2016-05-16 08:45] LABS: CALCIUM 7.3 mg/dl (8.4-10.2)
[2016-05-16] MEDS ORDERED: INFLUENZA VIRUS VACCINE 0.5 ML (DISPENSING) IM* ONE (09:00)
[2016-05-16] MEDS: DEXTROSE 5%-0.45% NACL 1,000 ML IV SCH ×3 (09:58→22:01)
[2016-05-16] MEDS: VANCOMYCIN 750 MG in SOD CHLORIDE 0.9% 150 ML IVPB SCH (12:57)
--- NOTE | 2016-05-16 14:05 | PN ---
Date/Time of Note Date/Time of Note DATE: 05/16/16 TIME: 13:59 Assessment/Plan VTE Prophylaxis VTE Prophylaxis Intervention: heparin Lines/Catheters IV Catheter Type (from [facility] Peripheral IV Assessment/Plan Chief Complaint/Hosp Course Assessment and plan 1. Right foot ulcer. continue broad-spectrum antibiotics. - f/u Podiatry and vascular surgery consult rec's. IV fluids as well. - Scheduled for lower extremity angiogram today - Follow up culture results. Tylenol p.r.n. pain and fevers. - MRI foot 2. Essential hypertension. He is on hydralazine p.r.n. Blood pressure is presently stable. 3. Sepsis, most likely secondary to right foot infection. Again, see #1. Continue broad-spectrum antibiotics and IV fluids. 4. High cholesterol. Continue Lipitor. 5. Type 2 diabetes. Continue home insulin regimen. Insulin sliding scale low- carb diet 6. History of peripheral vascular disease - f/u vascular surgery consult, Right foot MRI. 7. Right eye ptosis, unclear source. Consider infectious disease consult. Continue to monitor for now. 8. Gastrointestinal prophylaxis. Keep him on H2 lynsey. 9. Deep venous thrombosis prophylaxis. He is on heparin subq. Problems: Subjective 24 Hr Interval Summary Free Text/Dictation Patient complains of having right foot pain and discomfort Also complains of having nausea and several episode of vomiting Denies of any chest pain or shortness of breath Exam/Review of Systems Vital Signs Vitals Vital Signs Date Time Temp Pulse Resp B/P Pulse Ox O2 Delivery O2 Flow Rate FiO2 05/16/16 07:25 98.5 85 16 124/58 96 05/14/16 20:15 Room Air Intake and Output 05/15/16 05/15/16 05/16/16 15:00 23:00 07:00 Intake Total 100 ml 1870 ml 1430 ml Output Total 1650 ml 400 ml Balance 100 ml 220 ml 1030 ml Exam General: The patient is well-developed, Not in acute distress. HEENT: Atraumatic, normocephalic. The pupils are equal and round . Neck: Supple with full range of motion. Chest: Normal expansion of the thorax during inspiration Lungs: Clear to auscultation bilaterally Heart: Normal S1-S2, Regular rhythm and rate. Abdomen: Soft , nontender, nondistended , bowel sounds are present. Extremities: Right foot abscess, no edema no cyanosis Neurologic: Normal mental status,The patient is awake, alert and oriented . Results Result Diagram: 05/16/16 0735 05/16/16 0735 Results 24 hrs Laboratory Tests Test 05/15/16 16:55 05/15/16 21:23 05/15/16 23:52 05/16/16 07:35 Bedside Glucose 87 85 80 Anion Gap 14 Basophils # 0.0 Basophils % 0.3 Blood Morphology Comment Blood Urea Nitrogen 22 #H Calcium Level 7.3 L Carbon Dioxide Level 23 Chloride Level 107 Creatinine 1.15 Eosinophils # 0.0 Eosinophils % 0.4 Glucose Level 84 Hematocrit 27.9 L Hemoglobin 9.4 L Lymphocytes # 1.2 Lymphocytes % 9.8 L Mean Corpuscular Hemoglobin 28.0 L Mean Corpuscular Hemoglobin Concent 33.6 Mean Corpuscular Volume 83.5 Mean Platelet Volume 9.3 Monocytes # 1.1 H Monocytes % 9.3 Neutrophils # 9.6 H Neutrophils % 80.2 H Nucleated Red Blood Cells # 0.0 Nucleated Red Blood Cells % 0.0 Platelet Count 277 Potassium Level 4.1 Red Blood Count 3.35 L Red Cell Distribution Width 16.7 H Sodium Level 140 White Blood Count 12.0 H Test 05/16/16 07:51 05/16/16 11:59 Bedside Glucose 83 113 Medications Medications Current Medications Ondansetron HCl (Zofran Inj) 4 mg Q6H PRN IV NAUSEA AND/OR VOMITING Last administered on 05/16/16 12:30; Admin Dose 4 MG; Start 05/14/16 at 17:30 Acetaminophen (Tylenol Tab) 650 mg Q6H PRN PO PAIN LEVEL 1-3 OR FEVER; Start at 17:30 Acetaminophen/ Hydrocodone Bitart ([place] (5/325)) 1 tab Q6H PRN PO MODERATE PAIN LEVEL 4-6; Start 05/14/16 at 17:30 Morphine Sulfate (morphine) 2 mg Q4H PRN IV SEVERE PAIN LEVEL 7-10 Last administered on 05/16/16 12:56; Admin Dose 2 MG; Start 05/14/16 at 17:30 Docusate Sodium (Colace) 100 mg Q12H PRN PO CONSTIPATION; Start 05/14/16 at 17: 30 Magnesium Hydroxide (Milk Of Mag) 30 ml DAILY PRN PO CONSTIPATION; Start at 17:30 Sodium Biphosphate/ Sodium Phosphate (Fleet Enema) 133 ml DAILY PRN MI CONSTIPATION; Start 05/14/16 at 17:30 Famotidine (Pepcid) 20 mg DAILY PO Last administered on 05/16/16 08:16; Admin Dose 20 MG; Start 05/14/16 at 21:00 Lorazepam 0.5 mg 0.5 mg Q6H PRN IV ANXIETY; Start 05/14/16 at 17:30 Piperacillin Sod/ Tazobactam Sod (Zosyn 3.375gm/ 100 ml (Pmx)) 100 ml @ 200 mls /hr Q6 IVPB Last administered on 05/16/16 12:01; Admin Dose 200 MLS/HR; Start 05/15/16 at 00:00 Vancomycin HCl (Vanco Iv Per Pharmacy) VANCOMYCIN PER PHARMACY NOTE XX ; Start 05/14/16 at 17:30 Hydralazine HCl (Apresoline) 10 mg Q6H PRN IV ELEVATED BLOOD PRESSURE; Start at 17:30 Nitroglycerin (Nitroglycerin (Sl Tab) 0.4 Mg) 1 tab Q5M PRN SL ANGINA; Start at 17:30 Aspirin (Aspirin) 81 mg DAILY PO Last administered on 05/16/16 08:16; Admin Dose 81 MG; Start 05/15/16 at 09:00 Atorvastatin Calcium (Lipitor) 10 mg QHS PO Last administered on 05/15/16 23: 47; Admin Dose 10 MG; Start 05/14/16 at 21:00 Insulin Glargine (Lantus) 25 unit QHS SC Last administered on 05/14/16 21:53; Admin Dose 25 UNIT; Start 05/14/16 at 21:00 Heparin Sodium (Porcine) (Heparin (5000 Units/0.5 ml)) 5,000 unit BID SC Last administered on 05/16/16 08:20; Admin Dose 5,000 UNIT; Start 05/14/16 at 21:00 Miscellaneous Information 1 ea NOTE XX ; Start 05/14/16 at 19:30 Glucose (Glutose) 15 gm Q15M PRN PO DECREASED GLUCOSE; Start 05/14/16 at 19:30 Glucose (Glutose) 22.5 gm Q15M PRN PO DECREASED GLUCOSE; Start 05/14/16 at 19: 30 Dextrose (D50w Syringe) 25 ml Q15M PRN IV DECREASED GLUCOSE; Start 05/14/16 at 19:30 Dextrose (D50w Syringe) 50 ml Q15M PRN IV DECREASED GLUCOSE; Start 05/14/16 at 19:30 Glucagon (Glucagen) 1 mg Q15M PRN IM DECREASED GLUCOSE; Start 05/14/16 at 19:30 Glucose (Glutose) 15 gm Q15M PRN BUCCAL DECREASED GLUCOSE; Start 05/14/16 at 19 :30 Zolpidem Tartrate 10 mg 10 mg HS PRN PO INSOMNIA; Start 05/14/16 at 23:00 Dextrose/Sodium Chloride 1,000 ml @ 125 mls/hr Q8H IV Last administered on 09:58; Admin Dose 125 MLS/HR; Start 05/16/16 at 10:00 Vancomycin HCl/ Sodium Chloride (Vancocin/NS) 150 ml @ 75 mls/hr Q12H IVPB Last administered on 05/16/16 12:57; Admin Dose 75 MLS/HR; Start 05/16/16 at 12 :00 Miscellaneous Information (*Rx Drug Level Order Reminder*) 1 ONCE ONCE XX ; Start 05/17/16 at 11:00; Stop 05/17/16 at 11:01 LOUANN MONTILE MD May 16, 2016 14:05
[2016-05-16] MEDS: ATORVASTATIN 10 MG TAB PO SCH (21:00)
[2016-05-16 21:43] VITALS: BP 156/73; RESP 18
[2016-05-16] MEDS: INSULIN GLARGINE [LANtus] 3 ML PEN SC SCH (22:15)
--- NOTE | 2016-05-16 23:49 | CONS ---
Date/Time of Note Date/Time of Note DATE: 05/16/16 TIME: 23:48 Assessment/Plan Assessment/Plan Problems: (1) Foot abscess, right Comment: Patient will be scheduled for surgical management to include incision and drainage and debridement of abscess of the right foot along with open wound. (2) Diabetic ulcer of right foot Status: Acute (3) Diabetes mellitus type 2 with complications Status: Chronic (4) Acute osteomyelitis of left calcaneus Status: Acute (5) Non-pressure chronic ulcer of other part of left foot with necrosis of bone (6) Peripheral vascular disease Additional Assessment/Plan Thank you again for involving me in the care of this patient. If you have any questions regarding this case, please feel free to contact me at pager: [phone] or reach me at mobile: [phone]. Consultation Date/Type/Reason Admit Date/Time May 14, 2016 at 16:37 Date of Consultation: May 16, 2016 Type of Consultation: Foot and ankle surgery Reason for Consultation Infected right foot. Hx of Present Illness Thank you very much for involving me in the care of this patient. As you very well know this is a 50-year-old male patient with past medical history significant for diabetes mellitus type 2, peripheral vascular disease, high cholesterol, hypertension who was admitted to the hospital with significant infection of his right foot. I was consulted to evaluate and treat. Patient has been coming to my office for foot care and ulcer care in the past. Patient has recently undergone lower extremity arterial bypass surgery. Patient reports fever for the past few days. Reports feeling awful and reports progression of his problem. As per history of present illness. Past Medical History As per history of present illness. Past Surgical History As per history of present illness. Social History As per history of present illness. Smoking Status: Former smoker Exam/Review of Systems Vital Signs Vitals Vital Signs Date Time Temp Pulse Resp B/P Pulse Ox O2 Delivery O2 Flow Rate FiO2 05/16/16 21:43 98.8 80 18 156/73 95 05/14/16 20:15 Room Air Intake and Output 05/15/16 05/15/16 05/16/16 15:00 23:00 07:00 Intake Total 100 ml 1870 ml 1430 ml Output Total 1650 ml 400 ml Balance 100 ml 220 ml 1030 ml Exam Patient is in mild distress laying supine in bed. Patient has significant open wound of the right foot at the first metatarsophalangeal joint medially with necrotic tissue exposed. There is significant amount of pus and malodor present. Crepitus noted. There is edema of the forefoot with erythema. The area is tender to palpation. Labs and x-rays were reviewed. Results Result Diagram: 05/16/16 0735 05/16/16 0735 Results 24 hrs Laboratory Tests Test 05/15/16 23:52 05/16/16 07:35 05/16/16 07:51 05/16/16 11:59 Bedside Glucose 80 83 113 Anion Gap 14 Basophils # 0.0 Basophils % 0.3 Blood Morphology Comment Blood Urea Nitrogen 22 #H Calcium Level 7.3 L Carbon Dioxide Level 23 Chloride Level 107 Creatinine 1.15 Eosinophils # 0.0 Eosinophils % 0.4 Glucose Level 84 Hematocrit 27.9 L Hemoglobin 9.4 L Lymphocytes # 1.2 Lymphocytes % 9.8 L Mean Corpuscular Hemoglobin 28.0 L Mean Corpuscular Hemoglobin Concent 33.6 Mean Corpuscular Volume 83.5 Mean Platelet Volume 9.3 Monocytes # 1.1 H Monocytes % 9.3 Neutrophils # 9.6 H Neutrophils % 80.2 H Nucleated Red Blood Cells # 0.0 Nucleated Red Blood Cells % 0.0 Platelet Count 277 Potassium Level 4.1 Red Blood Count 3.35 L Red Cell Distribution Width 16.7 H Sodium Level 140 White Blood Count 12.0 H Test 05/16/16 18:01 05/16/16 20:57 Bedside Glucose 157 149 Medications Medications Current Medications Ondansetron HCl (Zofran Inj) 4 mg Q6H PRN IV NAUSEA AND/OR VOMITING Last administered on 05/16/16 17:57; Admin Dose 4 MG; Start 05/14/16 at 17:30 Acetaminophen (Tylenol Tab) 650 mg Q6H PRN PO PAIN LEVEL 1-3 OR FEVER; Start at 17:30 Acetaminophen/ Hydrocodone Bitart ([place] (5/325)) 1 tab Q6H PRN PO MODERATE PAIN LEVEL 4-6; Start 05/14/16 at 17:30 Morphine Sulfate (morphine) 2 mg Q4H PRN IV SEVERE PAIN LEVEL 7-10 Last administered on 05/16/16 22:40; Admin Dose 2 MG; Start 05/14/16 at 17:30 Docusate Sodium (Colace) 100 mg Q12H PRN PO CONSTIPATION; Start 05/14/16 at 17: 30 Magnesium Hydroxide (Milk Of Mag) 30 ml DAILY PRN PO CONSTIPATION; Start at 17:30 Sodium Biphosphate/ Sodium Phosphate (Fleet Enema) 133 ml DAILY PRN [place] CONSTIPATION; Start 05/14/16 at 17:30 Famotidine (Pepcid) 20 mg DAILY PO Last administered on 05/16/16 08:16; Admin Dose 20 MG; Start 05/14/16 at 21:00 Lorazepam 0.5 mg 0.5 mg Q6H PRN IV ANXIETY; Start 05/14/16 at 17:30 Piperacillin Sod/ Tazobactam Sod (Zosyn 3.375gm/ 100 ml (Pmx)) 100 ml @ 200 mls /hr Q6 IVPB Last administered on 05/16/16 23:39; Admin Dose 200 MLS/HR; Start 05/15/16 at 00:00 Vancomycin HCl (Vanco Iv Per Pharmacy) VANCOMYCIN PER PHARMACY NOTE XX ; Start 05/14/16 at 17:30 Hydralazine HCl (Apresoline) 10 mg Q6H PRN IV ELEVATED BLOOD PRESSURE; Start at 17:30 Nitroglycerin (Nitroglycerin (Sl Tab) 0.4 Mg) 1 tab Q5M PRN SL ANGINA; Start at 17:30 Aspirin (Aspirin) 81 mg DAILY PO Last administered on 05/16/16 08:16; Admin Dose 81 MG; Start 05/15/16 at 09:00 Atorvastatin Calcium (Lipitor) 10 mg QHS PO Last administered on 05/15/16 23: 47; Admin Dose 10 MG; Start 05/14/16 at 21:00 Insulin Glargine (Lantus) 25 unit QHS SC Last administered on 05/16/16 22:15; Admin Dose 25 UNIT; Start 05/14/16 at 21:00 Heparin Sodium (Porcine) (Heparin (5000 Units/0.5 ml)) 5,000 unit BID SC Last administered on 05/16/16 22:09; Admin Dose 5,000 UNIT; Start 05/14/16 at 21:00 Miscellaneous Information 1 ea NOTE XX ; Start 05/14/16 at 19:30 Glucose (Glutose) 15 gm Q15M PRN PO DECREASED GLUCOSE; Start 05/14/16 at 19:30 Glucose (Glutose) 22.5 gm Q15M PRN PO DECREASED GLUCOSE; Start 05/14/16 at 19: 30 Dextrose (D50w Syringe) 25 ml Q15M PRN IV DECREASED GLUCOSE; Start 05/14/16 at 19:30 Dextrose (D50w Syringe) 50 ml Q15M PRN IV DECREASED GLUCOSE; Start 05/14/16 at 19:30 Glucagon (Glucagen) 1 mg Q15M PRN IM DECREASED GLUCOSE; Start 05/14/16 at 19:30 Glucose (Glutose) 15 gm Q15M PRN BUCCAL DECREASED GLUCOSE; Start 05/14/16 at 19 :30 Zolpidem Tartrate 10 mg 10 mg HS PRN PO INSOMNIA; Start 05/14/16 at 23:00 Dextrose/Sodium Chloride 1,000 ml @ 125 mls/hr Q8H IV Last administered on 22:01; Admin Dose 125 MLS/HR; Start 05/16/16 at 10:00 Vancomycin HCl/ Sodium Chloride (Vancocin/NS) 150 ml @ 75 mls/hr Q12H IVPB Last administered on 05/16/16 12:57; Admin Dose 75 MLS/HR; Start 05/16/16 at 12 :00 Miscellaneous Information (*Rx Drug Level Order Reminder*) 1 ONCE ONCE XX ; Start 05/17/16 at 11:00; Stop 05/17/16 at 11:01 LARA JEFFREY DPM May 16, 2016 23:48
[2016-05-17] VITALS (15 sets, daily range): BP systolic 118–172; BP diastolic 65–82; PULSE 76–92; RESP 14–25
[2016-05-17] MEDS: VANCOMYCIN 750 MG in SOD CHLORIDE 0.9% 150 ML IVPB SCH (00:11)
[2016-05-17] MEDS: DEXTROSE 5%-0.45% NACL 1,000 ML IV SCH ×4 (02:00→21:18)
[2016-05-17] MEDS: PIPER-TAZO 3.375 GM IV (PMX) 100 ML IVPB SCH ×4 (05:44→23:54)
[2016-05-17] MEDS: ONDANSETRON 4 MG INJ IV PRN ×4 (05:54→23:54)
[2016-05-17] MEDS: morphine 2 MG INJ IV PRN ×2 (06:00→11:53)
[2016-05-17] MEDS: INSULIN ASPART [NOVOLOG] 3 ML PEN SC SCH ×7 (07:30→21:29)
[2016-05-17 08:33] LABS: BASOPHILS % 0.2 % (0.0-2.0); EOSINOPHILS # 0.1 10^3/ul (0.0-0.5); EOSINOPHILS % 0.6 % (0.0-7.0); HEMATOCRIT 29.9 % (42.0-52.0); HEMOGLOBIN 9.9 g/dl (14.0-18.0); LYMPHOCYTES # 1.4 10^3/ul (0.8-2.9); LYMPHOCYTES % 13.3 % (15.0-51.0); MEAN CORPUSCULAR HGB CONC 33.3 g/dl (32.0-37.0); MEAN CORPUSCULAR VOLUME 83.9 fl (82.0-101.0); MEAN PLATELET VOLUME 8.6 fl (7.4-10.4); MONOCYTE # 0.9 10^3/ul (0.3-0.9); MONOCYTES % 8.7 % (0.0-11.0); NEUTROPHIL # 8.4 10^3/ul (1.6-7.5); NEUTROPHILS % 77.2 % (39.0-77.0); PLATELET COUNT 351 10^3/UL (140-440); RED BLOOD COUNT 3.56 10^6/ul (4.70-6.10); RED CELL DISTRIBUTION WIDTH 17.2 % (11.5-14.5); UNCORRECTED WBC 10.9 10^3/ul (4.8-10.8); WHITE BLOOD COUNT 10.9 10^3/ul (4.8-10.8)
[2016-05-17 08:50] LABS: CREATININE 1.18 mg/dl (0.61-1.24)
[2016-05-17 08:51] LABS: CALCIUM 7.5 mg/dl (8.4-10.2)
[2016-05-17] MEDS: HEPARIN 5,000 UNIT/0.5 ML SYG SC SCH ×2 (09:00→21:00)
[2016-05-17] MEDS: FAMOTIDINE 20 MG TAB PO SCH (09:00)
[2016-05-17 09:03] LABS: CONDITION 1; LH ANALYZER COMMENTS 1
[2016-05-17] MEDS ORDERED: SOD CHLORIDE 0.9% 100 ML ONE (10:16)
[2016-05-17] MEDS ORDERED: IODIXANOL LOCM 100 ML BTL ONE ×4 (10:16→10:57)
[2016-05-17] MEDS: ASPIRIN 81 MG TAB PO SCH (10:50)
[2016-05-17] MEDS ORDERED: GUAIFENESIN/CODEINE 5ML CUP PO PRN (11:30)
--- NOTE | 2016-05-17 11:30 | PN ---
Date/Time of Note Date/Time of Note DATE: 05/17/16 TIME: 11:28 Assessment/Plan VTE Prophylaxis VTE Prophylaxis Intervention: heparin Lines/Catheters IV [facility]from [facility] [place] Assessment/Plan Chief Complaint/Hosp Course Assessment and plan 1. Right foot ulcer. continue broad-spectrum antibiotics. - f/u Podiatry and vascular surgery consult rec's. IV fluids as well. - Scheduled for lower extremity angioplasty today - Follow up culture results. Tylenol p.r.n. pain and fevers. -Schedule for I&D of the right foot abscess 2. Essential hypertension. He is on hydralazine p.r.n. Blood pressure is presently stable. 3. Sepsis, most likely secondary to right foot infection. Again, see #1. Continue broad-spectrum antibiotics and IV fluids. 4. High cholesterol. Continue Lipitor. 5. Type 2 diabetes. Continue home insulin regimen. Insulin sliding scale low- carb diet 6. History of peripheral vascular disease - f/u vascular surgery consult, Right foot MRI. 7. Right eye ptosis, unclear source. Consider infectious disease consult. Continue to monitor for now. 8. Gastrointestinal prophylaxis. Keep him on H2 [place]. 9. Deep venous thrombosis prophylaxis. He is on heparin subq. Problems: Subjective 24 Hr Interval Summary Free Text/Dictation Patient denies any chest pain or shortness of breath N.p.o. for upcoming procedure Schedule for angioplasty today Exam/Review of Systems Vital Signs Vitals Vital Signs Date Time Temp Pulse Resp B/P Pulse Ox O2 Delivery O2 Flow Rate FiO2 05/17/16 08:06 98.5 78 18 163/77 97 05/14/16 20:15 Room Air Intake and Output 05/16/16 05/16/16 05/17/16 15:00 23:00 07:00 Intake Total 300 ml 1250 ml 750 ml Output Total 0 ml 600 ml Balance 300 ml 1250 ml 150 ml Exam General: The patient is well-developed, Not in acute distress. HEENT: Atraumatic, normocephalic. The pupils are equal and round . Neck: Supple with full range of motion. Chest: Normal expansion of the thorax during inspiration Lungs: Clear to auscultation bilaterally Heart: Normal S1-S2, Regular rhythm and rate. Abdomen: Soft , nontender, nondistended , bowel sounds are present. Extremities: Right foot cellulitis and abscess, no edema no cyanosis Neurologic: Normal mental status,The patient is awake, alert and oriented . Results Result Diagram: 05/17/16 0814 05/17/16 0814 Results 24 hrs Laboratory Tests Test 05/16/16 11:59 05/16/16 18:01 05/16/16 20:57 05/17/16 07:47 Bedside Glucose 113 157 149 171 Test 05/17/16 08:14 Anion Gap 11 Basophils # 0.0 Basophils % 0.2 Blood Morphology Comment Blood Urea Nitrogen 20 Calcium Level 7.5 L Carbon Dioxide Level 23 Chloride Level 110 Creatinine 1.18 Eosinophils # 0.1 Eosinophils % 0.6 Glucose Level 177 Hematocrit 29.9 L Hemoglobin 9.9 L Lymphocytes # 1.4 Lymphocytes % 13.3 L Mean Corpuscular Hemoglobin 28.0 L Mean Corpuscular Hemoglobin Concent 33.3 Mean Corpuscular Volume 83.9 Mean Platelet Volume 8.6 Monocytes # 0.9 Monocytes % 8.7 Neutrophils # 8.4 H Neutrophils % 77.2 H Nucleated Red Blood Cells # 0.0 Nucleated Red Blood Cells % 0.0 Platelet Count 351 # Potassium Level 4.0 Red Blood Count 3.56 L Red Cell Distribution Width 17.2 H Sodium Level 140 White Blood Count 10.9 H Medications Medications Current Medications Ondansetron HCl (Zofran Inj) 4 mg Q6H PRN IV NAUSEA AND/OR VOMITING Last administered on 05/17/16 05:54; Admin Dose 4 MG; Start 05/14/16 at 17:30 Acetaminophen (Tylenol Tab) 650 mg Q6H PRN PO PAIN LEVEL 1-3 OR FEVER; Start at 17:30 Acetaminophen/ Hydrocodone Bitart ([place] (5/325)) 1 tab Q6H PRN PO MODERATE PAIN LEVEL 4-6; Start 05/14/16 at 17:30 Morphine Sulfate (morphine) 2 mg Q4H PRN IV SEVERE PAIN LEVEL 7-10 Last administered on 05/17/16 06:00; Admin Dose 2 MG; Start 05/14/16 at 17:30 Docusate Sodium (Colace) 100 mg Q12H PRN PO CONSTIPATION; Start 05/14/16 at 17: 30 Magnesium Hydroxide (Milk Of Mag) 30 ml DAILY PRN PO CONSTIPATION; Start at 17:30 Sodium Biphosphate/ Sodium Phosphate (Fleet Enema) 133 ml DAILY PRN [place] CONSTIPATION; Start 05/14/16 at 17:30 Famotidine (Pepcid) 20 mg DAILY PO Last administered on 05/16/16 08:16; Admin Dose 20 MG; Start 05/14/16 at 21:00 Lorazepam 0.5 mg 0.5 mg Q6H PRN IV ANXIETY; Start 05/14/16 at 17:30 Piperacillin Sod/ Tazobactam Sod (Zosyn 3.375gm/ 100 ml (Pmx)) 100 ml @ 200 mls /hr Q6 IVPB Last administered on 05/17/16 05:44; Admin Dose 200 MLS/HR; Start 05/15/16 at 00:00 Vancomycin HCl (Vanco Iv Per Pharmacy) VANCOMYCIN PER PHARMACY NOTE XX ; Start 05/14/16 at 17:30 Hydralazine HCl (Apresoline) 10 mg Q6H PRN IV ELEVATED BLOOD PRESSURE; Start at 17:30 Nitroglycerin (Nitroglycerin (Sl Tab) 0.4 Mg) 1 tab Q5M PRN SL ANGINA; Start at 17:30 Aspirin (Aspirin) 81 mg DAILY PO Last administered on 05/16/16 08:16; Admin Dose 81 MG; Start 05/15/16 at 09:00 Atorvastatin Calcium (Lipitor) 10 mg QHS PO Last administered on 05/15/16 23: 47; Admin Dose 10 MG; Start 05/14/16 at 21:00 Insulin Glargine (Lantus) 25 unit QHS SC Last administered on 05/16/16 22:15; Admin Dose 25 UNIT; Start 05/14/16 at 21:00 Heparin Sodium (Porcine) (Heparin (5000 Units/0.5 ml)) 5,000 unit BID SC Last administered on 05/16/16 22:09; Admin Dose 5,000 UNIT; Start 05/14/16 at 21:00 Miscellaneous Information 1 ea NOTE XX ; Start 05/14/16 at 19:30 Glucose (Glutose) 15 gm Q15M PRN PO DECREASED GLUCOSE; Start 05/14/16 at 19:30 Glucose (Glutose) 22.5 gm Q15M PRN PO DECREASED GLUCOSE; Start 05/14/16 at 19: 30 Dextrose (D50w Syringe) 25 ml Q15M PRN IV DECREASED GLUCOSE; Start 05/14/16 at 19:30 Dextrose (D50w Syringe) 50 ml Q15M PRN IV DECREASED GLUCOSE; Start 05/14/16 at 19:30 Glucagon (Glucagen) 1 mg Q15M PRN IM DECREASED GLUCOSE; Start 05/14/16 at 19:30 Glucose (Glutose) 15 gm Q15M PRN BUCCAL DECREASED GLUCOSE; Start 05/14/16 at 19 :30 Zolpidem Tartrate 10 mg 10 mg HS PRN PO INSOMNIA; Start 05/14/16 at 23:00 Dextrose/Sodium Chloride 1,000 ml @ 125 mls/hr Q8H IV Last administered on 10:16; Admin Dose 125 MLS/HR; Start 05/16/16 at 10:00 Vancomycin HCl/ Sodium Chloride (Vancocin/NS) 150 ml @ 75 mls/hr Q12H IVPB Last administered on 05/17/16 00:11; Admin Dose 75 MLS/HR; Start 05/16/16 at 12 :00 Guaifenesin/ Codeine Phosphate (Robitussin Ac Liquid Cup) 5 ml Q4H PRN PO COUGH ; Start 05/17/16 at 11:30; Status LOUANN GALINDO MD May 17, 2016 11:30
--- NOTE | 2016-05-17 12:42 | RADRPT ---
PROCEDURE: CT angiogram of the abdomen and pelvis with bilateral lower extremity runoff and with 3 -D reconstructions CLINICAL INDICATION: GANGRENE TECHNIQUE: CT angiogram of the abdomen and pelvis was performed on a multislice CT scanner . The patient was scanned after administration of intravenous contrast. Sagittal and coronal reformatted images were obtained from the axial source images. 3D MIP reformatted images were also created from the axial source images. DLP 1682.98 mGycm CTDI vol 82.16, 11.95 mGy COMPARISON: Catheter angiography of the abdominal aorta and left lower extremity from 12/25/2015 FINDINGS: ANGIOGRAM FINDINGS: There is no acute dissection or aneurysm of the abdominal aorta. The celiac, SMA, and HERON are widely patent. The celiac and SMA share a common origin. Bilateral renal arteries are widely patent. There is an accessory renal artery to the mid pole of t he right kidney which is widely patent. Common, internal and external iliac arteries are patent bilaterally. RIGHT LOWER EXTREMITY: There is mild short segment narrowing of the right common femoral artery. There is mild multifocal narrowing of the right profunda artery. The right SFA is widely patent. There is mild to moderate multifocal narrowing of the popliteal artery throughout its course. There is severe short segment atherosclerotic narrowing of the below-knee popliteal artery just proximal to the origin of the right anterior tibial artery. There is moderate to severe narrowing of the tib ioperoneal trunk. There is multifocal mild to moderate narrowing of the infrapopliteal vessels with three-vessel runof f to the level of the right ankle. LEFT LOWER EXTREMITY: The left common femoral artery is widely patent. There is multifocal moderate narrowing of the left profunda artery, unchanged. The left superficial femoral artery is widely patent. There is short segment mild atherosclerotic narrowing of the above-knee popliteal artery on series 3 , image 369. There is mild narrowing of the popliteal artery at the level of the knee joint. The right anterior tibial artery is widely patent. There is multifocal mild narrowing of the left posterior tibial artery. There is severe narrowing of the left peroneal artery throughout its course which is not significant ly changed compared with the angiograms from November 2015. There is a three-vessel runoff to the level of the left ankle. ANCILLARY FINDINGS: There is swelling of the left calf with atrophy of the left calf muscles. The appendix is within no rmal limits. IMPRESSION: Mild to moderate multifocal narrowing of the popliteal artery with a focus of severe short segment n arrowing below the knee, just proximal to the origin of the anterior tibial artery. There is also mo derate to severe narrowing of the right tibioperoneal trunk and the multifocal mild to moderate narr owing of the infrapopliteal vessels with three-vessel runoff to the level of the right ankle. Severe narrowing of the left peroneal artery. The left anterior tibial artery is widely patent and appears improved compared with the angiogram study from November 2015, allowing for differences in modality. There is three-vessel runoff to the level of the left ankle. Swelling of the subcutaneou s soft tissues of the left calf as well as atrophy of the calf muscles is noted. Physician Kenyetta Date Time Electronically viewed and signed by Physician Kenyetta on 05/17/2016 12:42 /
[2016-05-17] MEDS: VANCOMYCIN 1 GM in NS 250 ML IVPB SCH (13:24)
[2016-05-17] MEDS ORDERED: LIDOCAINE 2% (SDV) 5 ML INJ ONE (17:23)
[2016-05-17] MEDS ORDERED: PROPOFOL 20 ML ONE (17:23)
[2016-05-17] MEDS ORDERED: MEPERIDINE 100 MG INJ ONE (17:23)
--- NOTE | 2016-05-17 17:42 | HPN ---
Date/Time of Note Date/Time of Note DATE: 05/17/16 TIME: 17:41 Interval H&P Admission Note Pt. seen H&P reviewed: No system changes LARA JEFFREY DPM May 17, 2016 17:41
[2016-05-17] MEDS ORDERED: DIPHENHYDRAMINE 50 MG INJ IV PRN (18:00)
[2016-05-17] MEDS ORDERED: METOCLOPRAMIDE 10 MG INJ IV PRN (18:00)
[2016-05-17] MEDS ORDERED: ONDANSETRON 4 MG INJ IV PRN (18:00)
[2016-05-17] MEDS ORDERED: HYDROmorphONE (0.2 MG/ML) 10ML SYG IV PRN (18:00)
[2016-05-17] MEDS ORDERED: MEPERIDINE 25 MG INJ IV PRN (18:00)
[2016-05-17] MEDS ORDERED: FENTAnyl 50 MCG/ML VIAL IV PRN ×2 (18:00)
[2016-05-17] MEDS ORDERED: MIDAZOLAM 1 MG/ML 2 ML INJ IV PRN (18:00)
[2016-05-17] MEDS ORDERED: POLYMYXIN/BACITRACIN 1L IRRIG IRR ONE (18:16)
[2016-05-17] MEDS: HYDROmorphONE (0.2 MG/ML) 10ML SYG IV PRN ×2 (19:02→19:31)
[2016-05-17] MEDS: hydrALAzine 20 MG INJ IV PRN (19:23)
--- NOTE | 2016-05-17 19:38 | RADRPT ---
PROCEDURE: Right XR Foot. CLINICAL INDICATION: Sepsis. TECHNIQUE: AP lateral and oblique views of the right foot was obtained. The images were reviewed on a PACS workstation. COMPARISON: Right foot 05/14/2016 04:28 p.m. FINDINGS: There is subcutaneous emphysema soft tissue swelling adjacent to the right first metatarsal bone. T here is soft tissue swelling of the right foot. There is a hallux valgus deformity of the right gre at toe with lateral subluxation of the proximal right first phalanx. There is deformity and flatten ing of the distal end of the right second metatarsal bone. There is narrowing of the right second m etatarsal phalangeal joint. The flexion contractures of the other there are flexion fractures of th e fourth and fifth toes. IMPRESSION: 1. Diffuse soft tissue swelling of the right foot with gas gangrene adjacent to the right first met atarsal bone. There is no radiographic evidence of osteomyelitis. No significant change is present as compared to 05/14/2016. 2. Medial subluxation of the proximal right first phalanx. 3. Old fracture deformity of the diaphysis of the right first proximal phalanx. 4. There are Monckenberg vascular calcifications in the anterior posterior tibial arteries and righ t first digital artery. 5. Hallux valgus deformity of the right great toe. RPTAT:AAJJ Physician Gilberto Date Time Electronically viewed and signed by Tariq Liz Physician on 05/17/2016 19:38 GABY/
--- NOTE | 2016-05-17 19:53 | OPR ---
Date/Time of Note Date/Time of Note DATE: 05/17/16 TIME: 19:53 Operative Report Procedure Date: May 17, 2016 Preoperative Diagnosis Gas gangrene right foot first MPJ Necrotic open wound of right foot Osteomyelitis Cellulitis of right foot Diabetes mellitus Peripheral neuropathy Peripheral vascular disease Sepsis Postoperative Diagnosis Gas gangrene right foot first MPJ Necrotic open wound of right foot Osteomyelitis Cellulitis of right foot Diabetes mellitus Peripheral neuropathy Peripheral vascular disease Sepsis Operation Performed Surgical debridement of necrotic open wound of right foot using sharp instrumentation to muscle tissue measuring 5 x 5 cm Incision and drainage of right foot abscess Surgeon: LARA JEFFREY DPM Anesthesia: general Estimated Blood Loss: minimal Specimens Right foot wound culture Complications: None Pt Condition Post Procedure: stable Disposition: PACU Indications This is an unfortunate 50-year-old male patient with multiple medical problems including diabetes mellitus type 2, uncontrolled, hypertension, peripheral vascular disease, peripheral neuropathy, osteomyelitis, chronic wound of both feet, status post prior foot surgery who was admitted to the hospital with cellulitis, abscess and sepsis of the right foot. I was consulted for evaluation I found to gas gangrene in the right foot. Patient was scheduled for surgery. Risks and complications of this type surgery was discussed with patient in great detail. Risks and complications include, but are not limited to, worsening of the condition, need for additional surgical procedure, failure of surgery to correct the problem, deep venous thrombosis, limb loss and loss of life. Patient understands risks and complications and agrees to the procedure. Informed consent was signed, obtained and placed in the chart. No guarantee or warranty was given or implied as to the outcome of the procedure either verbal or written form. Operative Findings Significant necrosis of right foot with open wound first MPJ and forefoot edema and erythema involving epidermis dermis, subcutaneous tissue, tendon, muscle and bone. Procedure Description The patient was seen in the preoperative area. Risks and complications of this type surgery was discussed in great detail. All questions were answered. Informed consent was obtained, signed and placed in the chart. The patient was then taken to the operating room and was placed on the operating table in the supine position. All bony prominences were padded. Circulating nurse did a timeout and proper procedure and location of surgery was identified and agreed upon by all members of the OR. Patient was placed under general anesthesia by the anesthesiologist. The right foot was scrubbed, prepped and draped in the usual aseptic manner. Necrotic tissue was found the first MPJ. Sharp debridement was done using a #10 blade, scissors, curet to bleeding tissue. The tissues involved include epidermis, dermis, subcutaneous tissue, tendon muscle and bone. The area of the wound is 5 x 5 cm. There was significant amount of purulence which was drained. Using a versa jet, fine debridement was done. After mechanical and surgical debridement, the wound was flushed with copious amounts of sterile normal saline with pulse irrigation. The wound was packed with iodoform packing. Sterile dressing was applied. The patient tolerated procedure and anesthesia well. He was transferred to recovery room with vital signs stable and past status intact to the right foot. The patient will be sent back to the floor after postoperative monitoring. Postoperative orders were written. Patient is to remain nonweightbearing on the right foot. Prognosis is guarded at this time. Patient may require further surgery. Patient will be seen in-house. LARA JEFFREY DPM May 17, 2016 19:53
--- NOTE | 2016-05-17 19:53 | PN ---
Date/Time of Note Date/Time of Note DATE: 05/17/16 TIME: 19:52 Assessment/Plan Lines/Catheters IV [facility]): Peripheral IV Assessment/Plan Problems: (1) Open wound of right foot Comment: Patient is scheduled today for surgical management. Preoperative orders have been placed. Patient will be seen in the operating room. (2) Acute osteomyelitis of left calcaneus Status: Acute (3) Diabetes mellitus type 2 with complications Status: Chronic (4) Foot abscess, right (5) Osteomyelitis of left foot (6) Peripheral vascular disease Subjective 24 Hr Interval Summary Patient was seen at bedside. He is scheduled today for incision and drainage with debridement of right foot open wound and abscess. Patient reports fever continues. He reports pain in the right foot. Denies trauma. Constitutional: chills, febrile Pain Control: moderate Exam/Review of Systems Vital Signs Vitals Vital Signs Date Time Temp Pulse Resp B/P Pulse Ox O2 Delivery O2 Flow Rate FiO2 05/20/16 11:24 98.5 85 18 163/77 94 05/17/16 19:41 Room Air Intake and Output 05/19/16 05/19/16 05/20/16 15:00 23:00 07:00 Intake Total 1208 ml 1370 ml 2075 ml Output Total 200 ml 200 ml Balance 1208 ml 1170 ml 1875 ml Exam Free Text/Dictation Patient is in mild distress. Right foot swelling noted with open wound medial first MPJ with continued swelling and erythema in the forefoot area. Purulent drainage noted. Malodor present. Dorsalis pedis and posterior tibial pulses not palpable at this time. Sensation is decreased to sharp dull vibratory and temperature stimuli. Patient has an open wound on the left heel. Previous history of chronic open wound of the left heel. Labs reviewed. Results Result Diagram: 05/20/16 0638 05/20/16 0638 LARA JEFFREY DPM May 17, 2016 19:52
[2016-05-17] MEDS: INSULIN GLARGINE [LANtus] 3 ML PEN SC SCH (21:25)
[2016-05-17] MEDS: ATORVASTATIN 10 MG TAB PO SCH (21:27)
[2016-05-18] MEDS: DEXTROSE 5%-0.45% NACL 1,000 ML IV SCH ×3 (02:00→18:00)
[2016-05-18] MEDS: VANCOMYCIN 1 GM in NS 250 ML IVPB SCH ×2 (02:05→13:31)
[2016-05-18] MEDS: morphine 2 MG INJ IV PRN ×5 (05:00→23:00)
[2016-05-18] MEDS: PIPER-TAZO 3.375 GM IV (PMX) 100 ML IVPB SCH ×3 (06:06→18:25)
[2016-05-18] MEDS: ONDANSETRON 4 MG INJ IV PRN ×3 (06:06→20:07)
[2016-05-18 08:06] VITALS: BP 182/81; RESP 20
[2016-05-18] MEDS: FAMOTIDINE 20 MG TAB PO SCH (08:33)
[2016-05-18] MEDS: ASPIRIN 81 MG TAB PO SCH (08:33)
[2016-05-18] MEDS: HEPARIN 5,000 UNIT/0.5 ML SYG SC SCH ×2 (08:34→21:50)
[2016-05-18] MEDS: INSULIN ASPART [NOVOLOG] 3 ML PEN SC SCH ×7 (08:35→21:00)
[2016-05-18] MEDS: hydrALAzine 20 MG INJ IV PRN (08:36)
[2016-05-18 09:30] VITALS: BP 164/79; PULSE 81
[2016-05-18 09:55] LABS: BASOPHILS % 0.4 % (0.0-2.0); EOSINOPHILS # 0.1 10^3/ul (0.0-0.5); EOSINOPHILS % 0.7 % (0.0-7.0); HEMATOCRIT 27.3 % (42.0-52.0); HEMOGLOBIN 9.1 g/dl (14.0-18.0); LYMPHOCYTES # 1.5 10^3/ul (0.8-2.9); LYMPHOCYTES % 12.1 % (15.0-51.0); MEAN CORPUSCULAR HEMOGLOBIN 27.8 pg (29.0-33.0); MEAN CORPUSCULAR HGB CONC 33.5 g/dl (32.0-37.0); MEAN CORPUSCULAR VOLUME 82.9 fl (82.0-101.0); MEAN PLATELET VOLUME 8.5 fl (7.4-10.4); MONOCYTE # 0.9 10^3/ul (0.3-0.9); MONOCYTES % 6.7 % (0.0-11.0); NEUTROPHIL # 10.2 10^3/ul (1.6-7.5); NEUTROPHILS % 80.1 % (39.0-77.0); PLATELET COUNT 362 10^3/UL (140-440); RED BLOOD COUNT 3.29 10^6/ul (4.70-6.10); RED CELL DISTRIBUTION WIDTH 17.1 % (11.5-14.5); UNCORRECTED WBC 12.7 10^3/ul (4.8-10.8); WHITE BLOOD COUNT 12.7 10^3/ul (4.8-10.8)
[2016-05-18 10:03] LABS: CONDITION 1; LH ANALYZER COMMENTS 1
--- NOTE | 2016-05-18 10:19 | PN ---
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 His bilateral lower extremity noninvasive vascular studies he does have atherosclerotic disease. Upon his CT angiogram he does have three vessel runoffs with infrainguinal disease -Will follow with out podiatry colleagues in regards to his wound care and progress should he require any further intervention. -Discussed vascular optimization (BP meds, diet, nutrition, exercise, sugar control, antiplatelets). -Discussed smoking cessation with the patient and he understands. -Discussed findings, plan, and management with the patient and he understands with certified development system efficiency manager -Thank you for allowing us to partake in the care of your patient, please call with any questions Problems: Subjective 24 Hr Interval Summary s/p debridement, some right foot pain Exam/Review of Systems Vital Signs Vitals Vital Signs Date Time Temp Pulse Resp B/P Pulse Ox O2 Delivery O2 Flow Rate FiO2 05/18/16 08:06 97.6 88 20 182/81 98 05/17/16 19:41 Room Air Intake and Output 05/17/16 05/17/16 05/18/16 15:00 23:00 07:00 Intake Total 600 ml 1700 ml 1200 ml Output Total 20 ml Balance 600 ml 1680 ml 1200 ml Exam Free Text/Dictation GENERAL: Alert and oriented x3 PULMONARY: Clear to auscultation bilaterally CARDIOVASCULAR: S1, S2 present. ABDOMEN: Soft, nontender, nondistended. Bowel sounds positive. LOWER EXTREMITIES: Right lower extremity palpable femoral pulse, nonpalpable pedal pulse, likely secondary to edema of 1 to 2+. Capillary refill 3 to 4 seconds.dressing intact and some serosanguineous drainage Left lower extremity: Palpable femoral pulse, palpable graft at the ankle. Motor, sensory intact. Capillary refill 2 seconds. Left heel gangrene almost all healed with a dry callus that much smaller in size since we had seen him last. Results Result Diagram: 05/18/16 0936 05/17/16 0814 AICHA CRUZ MD May 18, 2016 10:19
[2016-05-18 10:25] LABS: POTASSIUM 3.4 mmol/L (3.5-5.1)
[2016-05-18 10:28] LABS: CREATININE 0.95 mg/dl (0.61-1.24)
[2016-05-18 10:29] LABS: CALCIUM 7.3 mg/dl (8.4-10.2)
--- NOTE | 2016-05-18 15:55 | PN ---
Date/Time of Note Date/Time of Note DATE: 05/18/16 TIME: 15:49 Assessment/Plan VTE Prophylaxis VTE Prophylaxis Intervention: heparin Lines/Catheters IV Catheter Type (from Nrs): Peripheral IV Assessment/Plan Chief Complaint/Hosp Course ASSESSMENT AND PLAN: A 50-year-old male coming in with right foot pain and swelling along with fevers for the last 3 days with signs of right diabetic foot ulcer. 1. Right foot ulcer - s/p I+D POD # 1 - continue broad-spectrum antibiotics. - f/u Podiatry and vascular surgery consult rec's. IV fluids as well. - Follow up culture results. Tylenol p.r.n. pain and fevers. 2. Essential hypertension. He is on hydralazine p.r.n. Blood pressure is presently stable. 3. Sepsis, most likely secondary to right foot infection. Again, see #1. Continue broad-spectrum antibiotics and IV fluids. 4. High cholesterol. Continue Lipitor. 5. Type 2 diabetes. Continue home insulin regimen. Insulin sliding scale low- carb diet 6. History of peripheral vascular disease - f/u vascular surgery consult rec's , smoking cessation 7. Right eye ptosis, unclear source. Consider infectious disease consult. Continue to monitor for now. 8. Gastrointestinal prophylaxis. Keep him on H2 lynsey. 9. Deep venous thrombosis prophylaxis. He is on heparin subq. Problems: Subjective 24 Hr Interval Summary Free Text/Dictation Pt had I+D yesterday. Exam/Review of Systems Vital Signs Vitals Vital Signs Date Time Temp Pulse Resp B/P Pulse Ox O2 Delivery O2 Flow Rate FiO2 05/18/16 09:30 81 164/79 05/18/16 08:06 97.6 20 98 05/17/16 19:41 Room Air Intake and Output 05/17/16 05/17/16 05/18/16 15:00 23:00 07:00 Intake Total 600 ml 1700 ml 1200 ml Output Total 20 ml Balance 600 ml 1680 ml 1200 ml Exam General: The patient is well-developed, Not in acute distress. HEENT: Atraumatic, normocephalic. The pupils are equal and round . Neck: Supple with full range of motion. Chest: Normal expansion of the thorax during inspiration Lungs: Clear to auscultation bilaterally Heart: Normal S1-S2, Regular rhythm and rate. Abdomen: Soft , nontender, nondistended , bowel sounds are present. Extremities: Right foot cellulitis and abscess, no edema no cyanosis Neurologic: Normal mental status,The patient is awake, alert and oriented . Results Result Diagram: 05/18/16 0936 05/18/16 0936 Results 24 hrs Laboratory Tests Test 05/17/16 16:46 05/17/16 17:38 05/17/16 19:06 05/17/16 21:22 Bedside Glucose 141 118 193 186 Test 05/18/16 07:58 05/18/16 09:36 05/18/16 11:51 Bedside Glucose 182 124 Anion Gap 11 Basophils # 0.0 Basophils % 0.4 Blood Morphology Comment Blood Urea Nitrogen 16 Calcium Level 7.3 L Carbon Dioxide Level 22 Chloride Level 111 H Creatinine 0.95 Eosinophils # 0.1 Eosinophils % 0.7 Glucose Level 159 Hematocrit 27.3 L Hemoglobin 9.1 L Lymphocytes # 1.5 Lymphocytes % 12.1 L Mean Corpuscular Hemoglobin 27.8 L Mean Corpuscular Hemoglobin Concent 33.5 Mean Corpuscular Volume 82.9 Mean Platelet Volume 8.5 Monocytes # 0.9 Monocytes % 6.7 Neutrophils # 10.2 H Neutrophils % 80.1 H Nucleated Red Blood Cells # 0.0 Nucleated Red Blood Cells % 0.0 Platelet Count 362 Potassium Level 3.4 L Red Blood Count 3.29 L Red Cell Distribution Width 17.1 H Sodium Level 141 White Blood Count 12.7 H Medications Medications Current Medications Ondansetron HCl (Zofran Inj) 4 mg Q6H PRN IV NAUSEA AND/OR VOMITING Last administered on 05/18/16 13:50; Admin Dose 4 MG; Start 05/14/16 at 17:30 Acetaminophen (Tylenol Tab) 650 mg Q6H PRN PO PAIN LEVEL 1-3 OR FEVER; Start at 17:30 Acetaminophen/ Hydrocodone Bitart ([place] (5/325)) 1 tab Q6H PRN PO MODERATE PAIN LEVEL 4-6; Start 05/14/16 at 17:30 Morphine Sulfate (morphine) 2 mg Q4H PRN IV SEVERE PAIN LEVEL 7-10 Last administered on 05/18/16 13:50; Admin Dose 2 MG; Start 05/14/16 at 17:30 Docusate Sodium (Colace) 100 mg Q12H PRN PO CONSTIPATION; Start 05/14/16 at 17: 30 Magnesium Hydroxide (Milk Of Mag) 30 ml DAILY PRN PO CONSTIPATION; Start at 17:30 Sodium Biphosphate/ Sodium Phosphate (Fleet Enema) 133 ml DAILY PRN [place] CONSTIPATION Last administered on 05/17/16 14:15; Admin Dose 133 ML; Start at 17:30 Famotidine (Pepcid) 20 mg DAILY PO Last administered on 05/18/16 08:33; Admin Dose 20 MG; Start 05/14/16 at 21:00 Lorazepam 0.5 mg 0.5 mg Q6H PRN IV ANXIETY; Start 05/14/16 at 17:30 Piperacillin Sod/ Tazobactam Sod (Zosyn 3.375gm/ 100 ml (Pmx)) 100 ml @ 200 mls /hr Q6 IVPB Last administered on 05/18/16 11:52; Admin Dose 200 MLS/HR; Start 05/15/16 at 00:00 Vancomycin HCl (Vanco Iv Per Pharmacy) VANCOMYCIN PER PHARMACY NOTE XX ; Start 05/14/16 at 17:30 Hydralazine HCl (Apresoline) 10 mg Q6H PRN IV ELEVATED BLOOD PRESSURE Last administered on 05/18/16 08:36; Admin Dose 10 MG; Start 05/14/16 at 17:30 Nitroglycerin (Nitroglycerin (Sl Tab) 0.4 Mg) 1 tab Q5M PRN SL ANGINA; Start at 17:30 Aspirin (Aspirin) 81 mg DAILY PO Last administered on 05/18/16 08:33; Admin Dose 81 MG; Start 05/15/16 at 09:00 Atorvastatin Calcium (Lipitor) 10 mg QHS PO Last administered on 05/17/16 21: 27; Admin Dose 10 MG; Start 05/14/16 at 21:00 Insulin Glargine (Lantus) 25 unit QHS SC Last administered on 05/17/16 21:25; Admin Dose 25 UNIT; Start 05/14/16 at 21:00 Heparin Sodium (Porcine) (Heparin (5000 Units/0.5 ml)) 5,000 unit BID SC Last administered on 05/18/16 08:34; Admin Dose 5,000 UNIT; Start 05/14/16 at 21:00 Miscellaneous Information 1 ea NOTE XX ; Start 05/14/16 at 19:30 Glucose (Glutose) 15 gm Q15M PRN PO DECREASED GLUCOSE; Start 05/14/16 at 19:30 Glucose (Glutose) 22.5 gm Q15M PRN PO DECREASED GLUCOSE; Start 05/14/16 at 19: 30 Dextrose (D50w Syringe) 25 ml Q15M PRN IV DECREASED GLUCOSE; Start 05/14/16 at 19:30 Dextrose (D50w Syringe) 50 ml Q15M PRN IV DECREASED GLUCOSE; Start 05/14/16 at 19:30 Glucagon (Glucagen) 1 mg Q15M PRN IM DECREASED GLUCOSE; Start 05/14/16 at 19:30 Glucose (Glutose) 15 gm Q15M PRN BUCCAL DECREASED GLUCOSE; Start 05/14/16 at 19 :30 Zolpidem Tartrate 10 mg 10 mg HS PRN PO INSOMNIA; Start 05/14/16 at 23:00 Dextrose/Sodium Chloride (D5-1/2ns) 1,000 ml @ 125 mls/hr Q8H IV Last administered on 05/18/16 09:07; Admin Dose 125 MLS/HR; Start 05/16/16 at 10:00 Guaifenesin/ Codeine Phosphate 5 ml 5 ml Q4H PRN PO COUGH; Start 05/17/16 at 11 :30 Vancomycin HCl (Vancocin) 250 ml @ 125 mls/hr Q12H IVPB Last administered on 13:31; Admin Dose 125 MLS/HR; Start 05/17/16 at 13:30 Miscellaneous Information (*Rx Drug Level Order Reminder*) VANCOMYCIN TROUGH AT 1230 ONCE ONCE XX ; Start 05/19/16 at 12:30; Stop 05/19/16 at 12:31 ESPERANZA HUIZAR May 18, 2016 15:55
[2016-05-18 20:26] VITALS: BP 162/73; RESP 18
[2016-05-18] MEDS: INSULIN GLARGINE [LANtus] 3 ML PEN SC SCH (21:00)
[2016-05-18] MEDS: ATORVASTATIN 10 MG TAB PO SCH (21:37)
[2016-05-18] MEDS ORDERED: INSULIN GLARGINE [LANtus] 3 ML PEN SC ONE (22:00)
[2016-05-18] MEDS ORDERED: ONDANSETRON 4 MG INJ IV PRN (23:30)
--- NOTE | 2016-05-18 23:50 | PN ---
Date/Time of Note Date/Time of Note DATE: 05/18/16 TIME: 23:50 Assessment/Plan Lines/Catheters IV Catheter Type (from Nrs): Peripheral IV Assessment/Plan Problems: (1) Open wound of right foot (2) Foot abscess, right (3) Diabetes mellitus type 2 with complications Status: Chronic (4) Essential hypertension Status: Chronic (5) Tobacco abuse Status: Chronic (6) Peripheral vascular disease Assessment/Plan Normal postop findings. There is moderate improvement. Patient will be monitored closely. He may require repeat surgery. Prognosis is guarded. Patient has not had his vascular intervention yet. Subjective 24 Hr Interval Summary Postop day 1. Status post incision and drainage with debridement of the right foot necrotic open wound and foot abscess. Patient reports improvement. Denies fever today. Reports no other adverse overnight events. Constitutional: no complaints Pain Control: well controlled Exam/Review of Systems Vital Signs Vitals Vital Signs Date Time Temp Pulse Resp B/P Pulse Ox O2 Delivery O2 Flow Rate FiO2 05/20/16 11:24 98.5 85 18 163/77 94 05/17/16 19:41 Room Air Intake and Output 05/19/16 05/19/16 05/20/16 15:00 23:00 07:00 Intake Total 1208 ml 1370 ml 2075 ml Output Total 200 ml 200 ml Balance 1208 ml 1170 ml 1875 ml Exam Free Text/Dictation Patient is laying supine in bed in no acute distress. Bandages are removed from the right foot. Open wound present with packing. There is decrease in erythema and edema of the right foot. There is no malodor present. No other changes noted. Labs reviewed. Results Result Diagram: 05/20/16 0638 05/20/16 0638 LARA JEFFREY DPM May 18, 2016 23:50
[2016-05-19] MEDS: PIPER-TAZO 3.375 GM IV (PMX) 100 ML IVPB SCH ×4 (00:40→17:35)
[2016-05-19] MEDS: METOCLOPRAMIDE 10 MG INJ IV PRN ×3 (00:40→17:32)
[2016-05-19] MEDS: VANCOMYCIN 1 GM in NS 250 ML IVPB SCH ×2 (01:54→13:38)
[2016-05-19] MEDS: DEXTROSE 5%-0.45% NACL 1,000 ML IV SCH ×4 (02:00→11:23)
[2016-05-19] MEDS: morphine 2 MG INJ IV PRN ×5 (05:08→21:40)
[2016-05-19] MEDS: ONDANSETRON INJ 8 MG in SOD CHLORIDE 0.9% 50 ML IV PRN ×2 (06:54→13:38)
[2016-05-19] MEDS: INSULIN ASPART [NOVOLOG] 3 ML PEN SC SCH ×7 (07:30→21:00)
[2016-05-19 08:07] VITALS: BP 187/83; RESP 16
[2016-05-19 08:12] LABS: POTASSIUM 3.4 mmol/L (3.5-5.1)
[2016-05-19 08:15] LABS: CALCIUM 7.3 mg/dl (8.4-10.2); CREATININE 0.93 mg/dl (0.61-1.24)
[2016-05-19 08:28] LABS: BASOPHILS % 0.3 % (0.0-2.0); EOSINOPHILS # 0.4 10^3/ul (0.0-0.5); EOSINOPHILS % 3.3 % (0.0-7.0); HEMATOCRIT 27.7 % (42.0-52.0); HEMOGLOBIN 9.3 g/dl (14.0-18.0); LYMPHOCYTES # 2.3 10^3/ul (0.8-2.9); LYMPHOCYTES % 18.3 % (15.0-51.0); MEAN CORPUSCULAR HEMOGLOBIN 28.1 pg (29.0-33.0); MEAN CORPUSCULAR HGB CONC 33.7 g/dl (32.0-37.0); MEAN CORPUSCULAR VOLUME 83.2 fl (82.0-101.0); MEAN PLATELET VOLUME 8.8 fl (7.4-10.4); MONOCYTE # 0.9 10^3/ul (0.3-0.9); MONOCYTES % 7.4 % (0.0-11.0); NEUTROPHIL # 8.8 10^3/ul (1.6-7.5); NEUTROPHILS % 70.7 % (39.0-77.0); PLATELET COUNT 419 10^3/UL (140-440); RED BLOOD COUNT 3.33 10^6/ul (4.70-6.10); RED CELL DISTRIBUTION WIDTH 17.1 % (11.5-14.5); UNCORRECTED WBC 12.5 10^3/ul (4.8-10.8); WHITE BLOOD COUNT 12.5 10^3/ul (4.8-10.8)
[2016-05-19 08:41] LABS: CONDITION 1; LH ANALYZER COMMENTS 1
[2016-05-19] MEDS: ASPIRIN 81 MG TAB PO SCH (08:49)
[2016-05-19] MEDS: FAMOTIDINE 20 MG TAB PO SCH (08:49)
[2016-05-19] MEDS: hydrALAzine 20 MG INJ IV PRN ×2 (08:50→21:40)
[2016-05-19] MEDS: HEPARIN 5,000 UNIT/0.5 ML SYG SC SCH ×2 (09:10→21:47)
[2016-05-19] MEDS ORDERED: POTASSIUM CHLORIDE (SR) 20 MEQ TAB PO STA (10:24)
--- NOTE | 2016-05-19 10:26 | PN ---
Date/Time of Note Date/Time of Note DATE: 05/19/16 TIME: 10:25 Assessment/Plan VTE Prophylaxis VTE Prophylaxis Intervention: heparin Lines/Catheters IV Catheter Type (from [facility]): Peripheral IV Assessment/Plan Chief Complaint/Hosp Course ASSESSMENT AND PLAN: A 50-year-old male coming in with right foot pain and swelling along with fevers for the last 3 days with signs of right diabetic foot ulcer. 1. Right foot ulcer - s/p I+D POD # 2 - continue broad-spectrum antibiotics Zosyn + Vanco - f/u Podiatry and vascular surgery consult rec's. IV fluids as well. - Follow up culture results. Tylenol p.r.n. pain and fevers. 2. Essential hypertension. He is on hydralazine p.r.n. Blood pressure is presently stable. 3. Sepsis, most likely secondary to right foot infection. Again, see #1. Continue broad-spectrum antibiotics and IV fluids. 4. High cholesterol. Continue Lipitor. 5. Type 2 diabetes. Continue home insulin regimen. Insulin sliding scale low- carb diet 6. History of peripheral vascular disease - f/u vascular surgery consult rec's , smoking cessation 7. Right eye ptosis, unclear source. Consider infectious disease consult. Continue to monitor for now. 8. Gastrointestinal prophylaxis - H2 lynsey. 9. Deep venous thrombosis prophylaxis - heparin subq. Problems: Subjective 24 Hr Interval Summary Free Text/Dictation No acute events overnight, seen by podiatry team. Exam/Review of Systems Vital Signs Vitals Vital Signs Date Time Temp Pulse Resp B/P Pulse Ox O2 Delivery O2 Flow Rate FiO2 05/19/16 08:07 98.3 83 16 187/83 97 05/17/16 19:41 Room Air Intake and Output 05/18/16 05/18/16 05/19/16 15:00 23:00 07:00 Intake Total 350 ml 1650 ml 1430 ml Output Total 600 ml Balance 350 ml 1650 ml 830 ml Exam General: The patient is well-developed, Not in acute distress. HEENT: Atraumatic, normocephalic. The pupils are equal and round . Neck: Supple with full range of motion. Chest: Normal expansion of the thorax during inspiration Lungs: Clear to auscultation bilaterally Heart: Normal S1-S2, Regular rhythm and rate. Abdomen: Soft , nontender, nondistended , bowel sounds are present. Extremities: Right foot cellulitis and abscess, no edema no cyanosis Neurologic: Normal mental status,The patient is awake, alert and oriented . Results Result Diagram: 05/19/16 0730 05/19/16 0730 Results 24 hrs Laboratory Tests Test 05/18/16 11:51 05/18/16 17:35 05/18/16 21:36 05/19/16 07:30 Bedside Glucose 124 88 93 Anion Gap 13 Basophils # 0.0 Basophils % 0.3 Blood Morphology Comment Blood Urea Nitrogen 11 Calcium Level 7.3 L Carbon Dioxide Level 20 L Chloride Level 113 H Creatinine 0.93 Eosinophils # 0.4 Eosinophils % 3.3 Glucose Level 92 # Hematocrit 27.7 L Hemoglobin 9.3 L Lymphocytes # 2.3 Lymphocytes % 18.3 Mean Corpuscular Hemoglobin 28.1 L Mean Corpuscular Hemoglobin Concent 33.7 Mean Corpuscular Volume 83.2 Mean Platelet Volume 8.8 Monocytes # 0.9 Monocytes % 7.4 Neutrophils # 8.8 H Neutrophils % 70.7 Nucleated Red Blood Cells # 0.0 Nucleated Red Blood Cells % 0.0 Platelet Count 419 Potassium Level 3.4 L Red Blood Count 3.33 L Red Cell Distribution Width 17.1 H Sodium Level 143 White Blood Count 12.5 H Test 05/19/16 07:56 Bedside Glucose 101 Medications Medications Current Medications Acetaminophen (Tylenol Tab) 650 mg Q6H PRN PO PAIN LEVEL 1-3 OR FEVER; Start at 17:30 Acetaminophen/ Hydrocodone Bitart ([place] (5/325)) 1 tab Q6H PRN PO MODERATE PAIN LEVEL 4-6; Start 05/14/16 at 17:30 Morphine Sulfate (morphine) 2 mg Q4H PRN IV SEVERE PAIN LEVEL 7-10 Last administered on 05/19/16 09:00; Admin Dose 2 MG; Start 05/14/16 at 17:30 Docusate Sodium (Colace) 100 mg Q12H PRN PO CONSTIPATION; Start 05/14/16 at 17: 30 Magnesium Hydroxide (Milk Of Mag) 30 ml DAILY PRN PO CONSTIPATION; Start at 17:30 Sodium Biphosphate/ Sodium Phosphate (Fleet Enema) 133 ml DAILY PRN [place] CONSTIPATION Last administered on 05/17/16 14:15; Admin Dose 133 ML; Start at 17:30 Famotidine (Pepcid) 20 mg DAILY PO Last administered on 05/19/16 08:49; Admin Dose 20 MG; Start 05/14/16 at 21:00 Lorazepam 0.5 mg 0.5 mg Q6H PRN IV ANXIETY; Start 05/14/16 at 17:30 Piperacillin Sod/ Tazobactam Sod (Zosyn 3.375gm/ 100 ml (Pmx)) 100 ml @ 200 mls /hr Q6 IVPB Last administered on 05/19/16 05:08; Admin Dose 200 MLS/HR; Start 05/15/16 at 00:00 Vancomycin HCl (Vanco Iv Per Pharmacy) VANCOMYCIN PER PHARMACY NOTE XX ; Start 05/14/16 at 17:30 Hydralazine HCl (Apresoline) 10 mg Q6H PRN IV ELEVATED BLOOD PRESSURE Last administered on 05/19/16 08:50; Admin Dose 10 MG; Start 05/14/16 at 17:30 Nitroglycerin (Nitroglycerin (Sl Tab) 0.4 Mg) 1 tab Q5M PRN SL ANGINA; Start at 17:30 Aspirin (Aspirin) 81 mg DAILY PO Last administered on 05/19/16 08:49; Admin Dose 81 MG; Start 05/15/16 at 09:00 Atorvastatin Calcium (Lipitor) 10 mg QHS PO Last administered on 05/18/16 21: 37; Admin Dose 10 MG; Start 05/14/16 at 21:00 Insulin Glargine (Lantus) 25 unit QHS SC Last administered on 05/17/16 21:25; Admin Dose 25 UNIT; Start 05/14/16 at 21:00 Heparin Sodium (Porcine) (Heparin (5000 Units/0.5 ml)) 5,000 unit BID SC Last administered on 05/19/16 09:10; Admin Dose 5,000 UNIT; Start 05/14/16 at 21:00 Miscellaneous Information 1 ea NOTE XX ; Start 05/14/16 at 19:30 Glucose (Glutose) 15 gm Q15M PRN PO DECREASED GLUCOSE; Start 05/14/16 at 19:30 Glucose (Glutose) 22.5 gm Q15M PRN PO DECREASED GLUCOSE; Start 05/14/16 at 19: 30 Dextrose (D50w Syringe) 25 ml Q15M PRN IV DECREASED GLUCOSE; Start 05/14/16 at 19:30 Dextrose (D50w Syringe) 50 ml Q15M PRN IV DECREASED GLUCOSE; Start 05/14/16 at 19:30 Glucagon (Glucagen) 1 mg Q15M PRN IM DECREASED GLUCOSE; Start 05/14/16 at 19:30 Glucose (Glutose) 15 gm Q15M PRN BUCCAL DECREASED GLUCOSE; Start 05/14/16 at 19 :30 Zolpidem Tartrate 10 mg 10 mg HS PRN PO INSOMNIA; Start 05/14/16 at 23:00 Dextrose/Sodium Chloride (D5-1/2ns) 1,000 ml @ 125 mls/hr Q8H IV Last administered on 05/19/16 03:59; Admin Dose 125 MLS/HR; Start 05/16/16 at 10:00 Guaifenesin/ Codeine Phosphate 5 ml 5 ml Q4H PRN PO COUGH; Start 05/17/16 at 11 :30 Vancomycin HCl (Vancocin) 250 ml @ 125 mls/hr Q12H IVPB Last administered on 01:54; Admin Dose 125 MLS/HR; Start 05/17/16 at 13:30 Miscellaneous Information (*Rx Drug Level Order Reminder*) VANCOMYCIN TROUGH AT 1230 ONCE ONCE XX ; Start 05/19/16 at 12:30; Stop 05/19/16 at 12:31 Metoclopramide HCl 10 mg 10 mg Q6H PRN IV N/V Last administered on 05/19/16 08 :50; Admin Dose 10 MG; Start 05/18/16 at 22:00 Ondansetron HCl/ Sodium Chloride (Zofran Inj/NS) 54 ml @ 216 mls/hr Q6H PRN IV NAUSEA AND/OR VOMITING Last administered on 05/19/16 06:54; Admin Dose 216 MLS/HR; Start 05/18/16 at 22:00 ESPERANZA HUIZAR May 19, 2016 10:26
[2016-05-19 11:28] VITALS: BP 160/77; PULSE 89
[2016-05-19 13:20] VITALS: BP 179/83; PULSE 82
[2016-05-19 14:30] VITALS: BP 159/77; PULSE 89
[2016-05-19] MEDS: ACETAMINOPHEN 325 MG TAB PO PRN (18:32)
[2016-05-19 19:43] VITALS: BP 161/75; RESP 18
[2016-05-19] MEDS: ATORVASTATIN 10 MG TAB PO SCH (21:39)
[2016-05-19] MEDS ORDERED: INSULIN GLARGINE [LANtus] 3 ML PEN SC SCH (22:00)
--- NOTE | 2016-05-19 22:54 | PN ---
Date/Time of Note Date/Time of Note DATE: 05/19/16 TIME: 22:53 Assessment/Plan Lines/Catheters IV Catheter Type (from Nrs): Peripheral IV Assessment/Plan Problems: (1) Non-pressure chronic ulcer of other part of left foot with necrosis of bone Comment: Patient will require repeat surgical management. Debridement with drainage of continued abscess of the right foot. (2) Osteomyelitis of left foot (3) Peripheral vascular disease (4) Diabetes mellitus type 2 with complications Status: Chronic (5) Essential hypertension Status: Chronic Assessment/Plan Dressing was changed today. Dakin's solution to the wound daily with Santyl ointment in the wound; change bandage daily; non weight bearing right foot. Subjective 24 Hr Interval Summary Patient is seen and examined. Reports feeling much better. Reports the vascular surgery has not done any procedures yet and that they want to speak to me regarding his case. Denies fever and chills. Reports no overnight adverse events. Constitutional: no complaints Pain Control: well controlled Exam/Review of Systems Vital Signs Vitals Vital Signs Date Time Temp Pulse Resp B/P Pulse Ox O2 Delivery O2 Flow Rate FiO2 05/20/16 11:24 98.5 85 18 163/77 94 05/17/16 19:41 Room Air Intake and Output 05/19/16 05/19/16 05/20/16 15:00 23:00 07:00 Intake Total 1208 ml 1370 ml 2075 ml Output Total 200 ml 200 ml Balance 1208 ml 1170 ml 1875 ml Exam Free Text/Dictation Patient is laying supine in bed. Right foot bandages removed. Open wound continues with discoloration in the arch area. There is fibronecrotic tissue at the base. Decrease in edema noted. There is less erythema no malodor. Continues to have forefoot deformities. Labs reviewed. Results Result Diagram: 05/20/1638 05/20/16 0638 LARA JEFFREY DPM May 19, 2016 22:54
[2016-05-20] MEDS: PIPER-TAZO 3.375 GM IV (PMX) 100 ML IVPB SCH ×4 (00:14→18:06)
[2016-05-20] MEDS: DEXTROSE 5%-0.45% NACL 1,000 ML IV SCH ×2 (01:49→09:08)
[2016-05-20] MEDS: VANCOMYCIN 1.25 GM in SOD CHLORIDE 0.9% 250 ML IVPB SCH ×2 (02:36→14:53)
[2016-05-20] MEDS: METOCLOPRAMIDE 10 MG INJ IV PRN (05:59)
[2016-05-20] MEDS: morphine 2 MG INJ IV PRN ×4 (05:59→23:17)
[2016-05-20] MEDS: INSULIN ASPART [NOVOLOG] 3 ML PEN SC SCH ×5 (07:30→21:00)
[2016-05-20 07:37] VITALS: BP 171/85; RESP 18
[2016-05-20 07:37] LABS: BASOPHILS % 0.4 % (0.0-2.0); EOSINOPHILS # 0.5 10^3/ul (0.0-0.5); EOSINOPHILS % 4.1 % (0.0-7.0); HEMATOCRIT 29.1 % (42.0-52.0); HEMOGLOBIN 9.7 g/dl (14.0-18.0); LYMPHOCYTES # 1.9 10^3/ul (0.8-2.9); LYMPHOCYTES % 17.2 % (15.0-51.0); MEAN CORPUSCULAR HEMOGLOBIN 27.8 pg (29.0-33.0); MEAN CORPUSCULAR HGB CONC 33.3 g/dl (32.0-37.0); MEAN CORPUSCULAR VOLUME 83.7 fl (82.0-101.0); MEAN PLATELET VOLUME 8.5 fl (7.4-10.4); MONOCYTE # 0.9 10^3/ul (0.3-0.9); MONOCYTES % 8.4 % (0.0-11.0); NEUTROPHIL # 7.7 10^3/ul (1.6-7.5); NEUTROPHILS % 69.9 % (39.0-77.0); PLATELET COUNT 487 10^3/UL (140-440); RED BLOOD COUNT 3.48 10^6/ul (4.70-6.10); RED CELL DISTRIBUTION WIDTH 16.7 % (11.5-14.5); UNCORRECTED WBC 11.1 10^3/ul (4.8-10.8); WHITE BLOOD COUNT 11.1 10^3/ul (4.8-10.8)
[2016-05-20 07:42] LABS: CONDITION 1; LH ANALYZER COMMENTS 1
[2016-05-20 07:50] LABS: POTASSIUM 3.3 mmol/L (3.5-5.1)
[2016-05-20 07:53] LABS: CALCIUM 7.4 mg/dl (8.4-10.2)
[2016-05-20] MEDS: ASPIRIN 81 MG TAB PO SCH (09:03)
[2016-05-20] MEDS: FAMOTIDINE 20 MG TAB PO SCH (09:03)
[2016-05-20] MEDS: HYDROCODONE/APAP (5/325) TAB PO PRN (09:04)
[2016-05-20] MEDS: SODIUM HYPOCHLORITE 0.125% 473 ML BTL IRR SCH (09:04)
[2016-05-20] MEDS: hydrALAzine 20 MG INJ IV PRN ×2 (09:13→16:58)
[2016-05-20] MEDS: HEPARIN 5,000 UNIT/0.5 ML SYG SC SCH ×2 (09:30→21:27)
[2016-05-20 11:24] VITALS: BP 163/77; RESP 18
--- NOTE | 2016-05-20 14:17 | PN ---
Date/Time of Note Date/Time of Note DATE: 05/20/16 TIME: 14:11 Assessment/Plan VTE Prophylaxis VTE Prophylaxis Intervention: heparin Lines/Catheters IV Catheter Type (from Nrs): Peripheral IV Assessment/Plan Chief Complaint/Hosp Course Assessment and plan 1. Non-pressure chronic ulcer of other part of left foot with necrosis of bone - f/u Podiatry and vascular surgery consult rec's. IV fluids as well. - Follow up culture results. Tylenol p.r.n. pain and fevers. -Status post I&D of the right foot abscess - Continue broad-spectrum IV antibiotics 2. Osteomyelitis of left foot -Continue vancomycin, infectious disease doctor has been consulted 2. Essential hypertension. Start patient on lisinopril, and continue hydralazine as needed 3. Sepsis, most likely secondary to right foot infection. Again, see #1. Continue broad-spectrum antibiotics and IV fluids. 4. High cholesterol. Continue Lipitor. 5. Type 2 diabetes. Continue home insulin regimen. Insulin sliding scale low- carb diet 6. History of peripheral vascular disease - f/u vascular surgery consult, 7. Right eye ptosis, unclear source. Consider infectious disease consult. Continue to monitor for now. 8. Gastrointestinal prophylaxis. Keep him on H2 lynsey. 9. Deep venous thrombosis prophylaxis. He is on heparin subq. Disposition: Follow up podiatry recommendation Plan to discharge home tomorrow on 05/21/2016 if cleared by podiatry Problems: Subjective 24 Hr Interval Summary Free Text/Dictation Patient continues to complain of having nausea without any vomiting Has been able to tolerate fluids only Patient denies any chest pain or shortness of breath Minimal discomfort in right foot Exam/Review of Systems Vital Signs Vitals Vital Signs Date Time Temp Pulse Resp B/P Pulse Ox O2 Delivery O2 Flow Rate FiO2 05/20/16 11:24 98.5 85 18 163/77 94 05/17/16 19:41 Room Air Intake and Output 05/19/16 05/19/16 05/20/16 15:00 23:00 07:00 Intake Total 1208 ml 1370 ml 2075 ml Output Total 200 ml 200 ml Balance 1208 ml 1170 ml 1875 ml Exam General: The patient is well-developed, Not in acute distress. HEENT: Atraumatic, normocephalic. The pupils are equal and round . Neck: Supple with full range of motion. Chest: Normal expansion of the thorax during inspiration Lungs: Clear to auscultation bilaterally Heart: Normal S1-S2, Regular rhythm and rate. Abdomen: Soft , nontender, nondistended , bowel sounds are present. Extremities: Right foot is in dry dressing, mild erythema, nonpitting edema no cyanosis Neurologic: Normal mental status,The patient is awake, alert and oriented . Results Result Diagram: 05/20/16 0638 05/20/16 0638 Results 24 hrs Laboratory Tests Test 05/19/16 17:28 05/19/16 21:47 05/20/16 06:38 05/20/16 08:01 Bedside Glucose 115 115 87 Anion Gap 13 Basophils # 0.0 Basophils % 0.4 Blood Morphology Comment Blood Urea Nitrogen 10 Calcium Level 7.4 L Carbon Dioxide Level 22 Chloride Level 112 H Creatinine 1.00 Eosinophils # 0.5 Eosinophils % 4.1 Glucose Level 105 Hematocrit 29.1 L Hemoglobin 9.7 L Lymphocytes # 1.9 Lymphocytes % 17.2 Mean Corpuscular Hemoglobin 27.8 L Mean Corpuscular Hemoglobin Concent 33.3 Mean Corpuscular Volume 83.7 Mean Platelet Volume 8.5 Monocytes # 0.9 Monocytes % 8.4 Neutrophils # 7.7 H Neutrophils % 69.9 Nucleated Red Blood Cells # 0.0 Nucleated Red Blood Cells % 0.0 Platelet Count 487 H Potassium Level 3.3 L Red Blood Count 3.48 L Red Cell Distribution Width 16.7 H Sodium Level 144 White Blood Count 11.1 H Test 05/20/16 11:48 Bedside Glucose 106 Medications Medications Current Medications Acetaminophen (Tylenol Tab) 650 mg Q6H PRN PO PAIN LEVEL 1-3 OR FEVER Last administered on 05/19/16 18:32; Admin Dose 650 MG; Start 05/14/16 at 17:30 Acetaminophen/ Hydrocodone Bitart ([place] (5/325)) 1 tab Q6H PRN PO MODERATE PAIN LEVEL 4-6 Last administered on 05/20/16 09:04; Admin Dose 1 TAB; Start at 17:30 Morphine Sulfate (morphine) 2 mg Q4H PRN IV SEVERE PAIN LEVEL 7-10 Last administered on 05/20/16 05:59; Admin Dose 2 MG; Start 05/14/16 at 17:30 Docusate Sodium (Colace) 100 mg Q12H PRN PO CONSTIPATION; Start 05/14/16 at 17: 30 Magnesium Hydroxide (Milk Of Mag) 30 ml DAILY PRN PO CONSTIPATION; Start at 17:30 Sodium Biphosphate/ Sodium Phosphate (Fleet Enema) 133 ml DAILY PRN [place] CONSTIPATION Last administered on 05/17/16 14:15; Admin Dose 133 ML; Start at 17:30 Famotidine (Pepcid) 20 mg DAILY PO Last administered on 05/20/16 09:03; Admin Dose 20 MG; Start 05/14/16 at 21:00 Lorazepam 0.5 mg 0.5 mg Q6H PRN IV ANXIETY; Start 05/14/16 at 17:30 Piperacillin Sod/ Tazobactam Sod (Zosyn 3.375gm/ 100 ml (Pmx)) 100 ml @ 200 mls /hr Q6 IVPB Last administered on 05/20/16 12:26; Admin Dose 200 MLS/HR; Start 05/15/16 at 00:00 Vancomycin HCl (Vanco Iv Per Pharmacy) VANCOMYCIN PER PHARMACY NOTE XX ; Start 05/14/16 at 17:30 Nitroglycerin (Nitroglycerin (Sl Tab) 0.4 Mg) 1 tab Q5M PRN SL ANGINA; Start at 17:30 Aspirin (Aspirin) 81 mg DAILY PO Last administered on 05/20/16 09:03; Admin Dose 81 MG; Start 05/15/16 at 09:00 Atorvastatin Calcium (Lipitor) 10 mg QHS PO Last administered on 05/19/16 21: 39; Admin Dose 10 MG; Start 05/14/16 at 21:00 Heparin Sodium (Porcine) (Heparin (5000 Units/0.5 ml)) 5,000 unit BID SC Last administered on 05/20/16 09:30; Admin Dose 5,000 UNIT; Start 05/14/16 at 21:00 Miscellaneous Information 1 ea NOTE XX ; Start 05/14/16 at 19:30 Glucose (Glutose) 15 gm Q15M PRN PO DECREASED GLUCOSE; Start 05/14/16 at 19:30 Glucose (Glutose) 22.5 gm Q15M PRN PO DECREASED GLUCOSE; Start 05/14/16 at 19: 30 Dextrose (D50w Syringe) 25 ml Q15M PRN IV DECREASED GLUCOSE; Start 05/14/16 at 19:30 Dextrose (D50w Syringe) 50 ml Q15M PRN IV DECREASED GLUCOSE; Start 05/14/16 at 19:30 Glucagon (Glucagen) 1 mg Q15M PRN IM DECREASED GLUCOSE; Start 05/14/16 at 19:30 Glucose (Glutose) 15 gm Q15M PRN BUCCAL DECREASED GLUCOSE; Start 05/14/16 at 19 :30 Zolpidem Tartrate (Ambien) 10 mg HS PRN PO INSOMNIA; Start 05/14/16 at 23:00 Guaifenesin/ Codeine Phosphate (Robitussin Ac Liquid Cup) 5 ml Q4H PRN PO COUGH ; Start 05/17/16 at 11:30 Metoclopramide HCl 10 mg 10 mg Q6H PRN IV N/V Last administered on 05/20/16 05 :59; Admin Dose 10 MG; Start 05/18/16 at 22:00 Ondansetron HCl/ Sodium Chloride (Zofran Inj/NS) 54 ml @ 216 mls/hr Q6H PRN IV NAUSEA AND/OR VOMITING Last administered on 05/19/16 13:38; Admin Dose 216 MLS/HR; Start 05/18/16 at 22:00 Sodium Hypochlorite (Dakin'S (1/4 Strength)) 1 applic DAILY IRR Last administered on 05/20/16 09:04; Admin Dose 1 APPLIC; Start 05/20/16 at 09:00 Hydralazine HCl 10 mg 10 mg Q4H PRN IV for sys bp > 160 Last administered on 09:13; Admin Dose 10 MG; Start 05/19/16 at 17:00 Vancomycin HCl/ Sodium Chloride (Vancocin/NS) 250 ml @ 83.333 mls/ hr Q12H IVPB Last administered on 05/20/16 02:36; Admin Dose 83.333 MLS/HR; Start at 02:00 Insulin Glargine 10 unit 10 unit QHS SC ; Start 05/20/16 at 21:00; Status UNV Sodium Chloride (1/2 NS) 1,000 ml @ 75 mls/hr [id number] IV ; Start 05/20/16 at 14 :30; Stop 05/22/16 at 12:00; Status UNV Metoclopramide HCl (Reglan) 5 mg TID PO ; Start 05/20/16 at 21:00; Status UNV LOUANN MONTIEL MD May 20, 2016 14:17
[2016-05-20] MEDS: SOD CHLORIDE 0.45% 1,000 ML IV SCH (14:54)
[2016-05-20] MEDS: BENAZEPRIL 10 MG TAB PO SCH ×2 (14:57→21:24)
--- NOTE | 2016-05-20 17:14 | CONS ---
DATE OF ADMISSION: 05/14/2016 DATE OF CONSULTATION: 05/20/2016 TYPE OF CONSULTATION: Infectious disease. REASON FOR CONSULTATION: Antibiotic management. HISTORY OF PRESENT ILLNESS: Cain Schofield is a 50-year-old male who comes in with right foot pain and is being seen for antibiotic management. Past problems include: 1. Adult-onset diabetes mellitus. 2. Peripheral vascular disease. 3. Hypercholesterolemia. 4. Hypertension. 5. Left foot osteomyelitis. 6. History of vascular bypass surgery in the left lower extremity. He presents with 3 days with right foot pain and swelling. He had subjective fevers and some mild c hest pressure. He is having some discharge from the right foot from an ulcer, a combination of bloo d and pus, at home. He called Dr. Sushant Craven, podiatry, who told him to come to the emergency [facility]. He also has some right eye photophobia for the past 10 days and some drooping of the right upper eyelid. He quit smoking 2 weeks ago. On admission, his fever was 103.6, white count of 14,000. Jackie ritchie has had left lower extremity vascular bypass surgery and left foot surgery in the past. On admiss ion, his white count was 13.8, H and H of 11 and 33.6, platelet count 276,000. BUN and creatinine 4 0/2.25, glucose 170. Chest x-ray, no evidence of any acute cardiopulmonary disease. There is a laney t x-ray of the right foot, no radiographic evidence of osteomyelitis, but there is valgus deformity. There is soft tissue swelling with gas in the soft tissue overlying the first metatarsal head with signs of cellulitis. There is moderate first metatarsal and proximal phalangeal osteoarthrosis. I mpression was the patient comes in with a diabetic right foot with fever, diabetic foot ulcer, also with right eye ptosis. He was started on vancomycin and Zosyn. An MRI of the foot showed marrow si gnal changes in the first metatarsal head and proximal phalanx compatible with osteomyelitis of the first metatarsophalangeal joint, plantar skin ulcer with extensive subcutaneous edema and/or celluli tis with subcutaneous gas throughout the anterior foot compatible with gas gangrene. No evidence of abnormal fluid collection to suggest abscess, mild hallux valgus deformity of the first metatarsoph alangeal joint, degenerative changes of the second metatarsophalangeal joint with chronic deformitie s suggestive of remote fracture of the second metatarsal head. Venous evaluation showed partial lef t greater saphenous vein harvesting. An abdominal angiogram shows mild to moderate multifocal narro wing of the popliteal artery with focus of severe short segment narrowing below the knee just proxim al to the origin of the anterior tibial vessel. There is also moderate to severe narrowing of the r ight tibioperoneal trunk and multifocal mild to moderate narrowing of the infrapopliteal vessels wit h 3-vessel runoff to the level of the right ankle, severe narrowing of the left peroneal artery, lef t anterior tibial artery is widely patent and appears improved compared with the angiogram study fr om 11/2015, allowing for differences modality. A 3-vessel runoff at the level of the ankle swelling in the subcutaneous tissues of left ankle as well as atrophy of the calf muscles is noted. MICROBIOLOGY: The patient has blood cultures positive for group A, group B strep agalactia and alph a hemolytic strep and gram-negative rods. Also the right foot has alpha hemolytic strep and Alison lla morganii. The right foot on the has gram-positive cocci. Is growing group A, B strep, alp soto hemolytic strep, and Morganella morganii. He is currently on vancomycin and Zosyn. The Zosyn it self will cover the organisms that are listed. HOSPITAL COURSE: The patient was seen by Dr. Craven on the . He required repeat surgical manag ement and debridement with drainage and continued abscess of the right foot. Dressing was changed w ith Dakin solution or Santyl ointment in wound. White count today is 11.1. He was seen by Dr. Dinesh downing who noted a chronic non-pressure ulcer of the other part of the left foot with necrosis of bon e, status post incision and drainage of right foot abscess. Continued broad-spectrum IV antibiotic for osteomyelitis of the left foot. Continue vancomycin. Essential hypertension. The etiology of the ptosis is unclear. PAST MEDICAL HISTORY: Operations as outlined. FAMILY HISTORY: Noncontributory. SOCIAL HISTORY: Does not smoke, drink, or abuse drugs. ALLERGIES: NONE TO PENICILLIN, SULFA, OR FOODS. MEDICATIONS: Per chart. REVIEW OF SYSTEMS: As per HPI. PHYSICAL EXAMINATION: GENERAL: The patient is a chronically ill-appearing male who is alert, responsive, in no a cute distress. VITAL SIGNS: Stable. He is afebrile at the present time. SKIN: Without generalized rash. HEENT: Within normal limits. NECK: Supple. LYMPH NODES: None palpable. CHEST: Decreased breath sounds at the bases. HEART: Without murmur or gallop. ABDOMEN: Soft, nontender without organosplenomegaly or masses. EXTREMITIES: On the right foot, there is an ulcer at the base between the first and second digits, some right foot swelling with some erythema and edema noted. No active discharge noted. RECTAL AND GENITAL: Deferred. NEUROLOGIC: Decreased sensation in distal extremities. Otherwise, no focal neurological abnormalit y. RADIOLOGY: As noted, the MRI shows evidence of marrow changes in the first metatarsal head and prox imal phalanx compatible with cellulitis. I assume this was the right foot. ASSESSMENT AND PLAN: The patient is now status post incision and drainage with debridement of the r ight foot of the chronic open wound, and foot abscess. We will continue him on vancomycin and Zosyn . We may want to stop the vancomycin shortly. The patient is also sensitive to cefotaxime, which m ay be a better choice. I will plan on switching him over to ceftriaxone tomorrow. I will dictate m y findings to the hospitalist. Dictated By: NATAN SOSA MD, JD/SHANNAN Conf#: [id number] DID#: [id number] CC: ESPERANZA HUIZAR;*EndCC*
[2016-05-20 18:08] VITALS: BP 167/79; PULSE 99
[2016-05-20 19:00] VITALS: BP 162/77; RESP 19
[2016-05-20 19:13] VITALS: BP 142/71; PULSE 102
[2016-05-20 20:38] VITALS: BP 138/72; RESP 19
[2016-05-20] MEDS ORDERED: INSULIN GLARGINE [LANtus] 3 ML PEN SC SCH (21:00)
[2016-05-20] MEDS: INSULIN GLARGINE [LANtus] 3 ML PEN SC SCH (21:00)
[2016-05-20] MEDS: METOCLOPRAMIDE 5 MG TAB PO SCH (21:24)
[2016-05-20] MEDS: ATORVASTATIN 10 MG TAB PO SCH (21:24)
[2016-05-21] MEDS: PIPER-TAZO 3.375 GM IV (PMX) 100 ML IVPB SCH ×5 (01:09→23:40)
[2016-05-21] MEDS: HYDROCODONE/APAP (5/325) TAB PO PRN ×4 (01:30→23:40)
[2016-05-21] MEDS: METOCLOPRAMIDE 10 MG INJ IV PRN (01:30)
[2016-05-21] MEDS: SOD CHLORIDE 0.45% 1,000 ML IV SCH (03:50)
[2016-05-21 06:20] LABS: BASOPHILS % 0.4 % (0.0-2.0); EOSINOPHILS # 0.3 10^3/ul (0.0-0.5); EOSINOPHILS % 3.2 % (0.0-7.0); HEMOGLOBIN 9.4 g/dl (14.0-18.0); LYMPHOCYTES % 20.5 % (15.0-51.0); MEAN CORPUSCULAR HEMOGLOBIN 28.3 pg (29.0-33.0); MEAN CORPUSCULAR HGB CONC 33.8 g/dl (32.0-37.0); MEAN CORPUSCULAR VOLUME 83.8 fl (82.0-101.0); MEAN PLATELET VOLUME 8.1 fl (7.4-10.4); MONOCYTE # 0.6 10^3/ul (0.3-0.9); MONOCYTES % 6.5 % (0.0-11.0); NEUTROPHIL # 6.9 10^3/ul (1.6-7.5); NEUTROPHILS % 69.4 % (39.0-77.0); PLATELET COUNT 497 10^3/UL (140-440); RED BLOOD COUNT 3.34 10^6/ul (4.70-6.10); RED CELL DISTRIBUTION WIDTH 16.6 % (11.5-14.5); UNCORRECTED WBC 9.9 10^3/ul (4.8-10.8); WHITE BLOOD COUNT 9.9 10^3/ul (4.8-10.8)
[2016-05-21] MEDS: morphine 2 MG INJ IV PRN ×2 (06:21→12:53)
[2016-05-21 06:22] LABS: CONDITION 1; LH ANALYZER COMMENTS 1; POTASSIUM 3.5 mmol/L (3.5-5.1)
[2016-05-21 06:25] LABS: CREATININE 1.06 mg/dl (0.61-1.24)
[2016-05-21 06:26] LABS: CALCIUM 7.6 mg/dl (8.4-10.2)
[2016-05-21] MEDS: INSULIN ASPART [NOVOLOG] 3 ML PEN SC SCH ×4 (07:55→21:00)
[2016-05-21] MEDS: COLLAGENASE 30 GM TUBE TOP SCH (08:05)
[2016-05-21] MEDS: ASPIRIN 81 MG TAB PO SCH (08:05)
[2016-05-21] MEDS: FAMOTIDINE 20 MG TAB PO SCH (08:06)
[2016-05-21] MEDS: BENAZEPRIL 10 MG TAB PO SCH ×2 (08:06→20:55)
[2016-05-21] MEDS: METOCLOPRAMIDE 5 MG TAB PO SCH ×3 (08:06→20:51)
[2016-05-21] MEDS: SODIUM HYPOCHLORITE 0.125% 473 ML BTL IRR SCH (08:07)
[2016-05-21] MEDS: HEPARIN 5,000 UNIT/0.5 ML SYG SC SCH ×2 (08:10→21:01)
[2016-05-21 08:30] VITALS: BP 187/88; RESP 22
--- NOTE | 2016-05-21 12:35 | PN ---
DATE: 05/21/2016 SUBJECTIVE: No acute changes. The patient is alert, looks comfortable. Denies pain, discomfort. No fevers. LABORATORY DATA: WBC 9.9 today, platelets 497, no shift, no bands. BUN 10, creatinine 1.06. MICROBIOLOGY: Blood culture on admission grew alpha hemolytic strep species and gram-negative rods. Right foot wound culture growing Morganella morganii and alpha hemolytic strep species. Urine cul ture negative. Wound culture revealed no anaerobes. ALLERGIES: NONE. ANTIMICROBIALS: The patient is on Zosyn, status post vancomycin. PHYSICAL EXAMINATION: GENERAL: This is a well-developed, well-nourished, middle-aged man who is alert, in no dis tress. HEENT: Head atraumatic, normocephalic. Sclerae anicteric. Buccal mucosa pink. NECK: Supple. CHEST: Rise symmetrical. Breath sounds clear. HEART: S1, S2. ABDOMEN: Soft, bowel sounds present. EXTREMITIES: With right foot dressing intact. ASSESSMENT: 1. Resolving sepsis. 2. Polymicrobial bacteremia secondary to #3. 3. Right foot cellulitis, osteomyelitis, status post incision and drainage. 4. Severe peripheral vascular disease. 5. Diabetes. 6. History of left lower extremity bypass surgery. PLAN: The patient remains stable. We will continue him on antibiotics. Follow podiatry recommenda tions. Await for final blood cultures. Dictated By: SEBASTIAN YORK MFTS for NATAN SOSA MD NI/NTS Conf#: [id number] DID#: [id number]
--- NOTE | 2016-05-21 14:16 | PN ---
Date/Time of Note Date/Time of Note DATE: 05/21/16 TIME: 14:15 Assessment/Plan VTE Prophylaxis VTE Prophylaxis Intervention: other Lines/Catheters IV Catheter Type (from Nrs): Peripheral IV Assessment/Plan Chief Complaint/Hosp Course Assessment and plan 1. Non-pressure chronic ulcer of other part of left foot with necrosis of bone - f/u Podiatry and vascular surgery consult rec's. IV fluids as well. Patient will require repeat surgical management. Debridement with drainage of continued abscess of the right foot. - Follow up culture results. Tylenol p.r.n. pain and fevers. -Status post I&D of the right foot abscess - Continue broad-spectrum IV antibiotics 2. Osteomyelitis of left foot -Continue vancomycin, infectious disease doctor has been consulted 2. Essential hypertension. Start patient on lisinopril, and continue hydralazine as needed 3. Sepsis, most likely secondary to right foot infection. Again, see #1. Continue broad-spectrum antibiotics and IV fluids. 4. High cholesterol. Continue Lipitor. 5. Type 2 diabetes. Continue home insulin regimen. Insulin sliding scale low- carb diet 6. History of peripheral vascular disease - f/u vascular surgery consult, 7. Right eye ptosis, unclear source. Consider infectious disease consult. Continue to monitor for now. 8. Gastrointestinal prophylaxis. Keep him on H2 lynsey. 9. Deep venous thrombosis prophylaxis. He is on heparin subq. Disposition: Follow up podiatry recommendation Problems: Subjective 24 Hr Interval Summary Free Text/Dictation Patient denies of any chest pain or shortness of breath Decrease in abdominal discomfort and nausea Minimal right foot pain Exam/Review of Systems Vital Signs Vitals Vital Signs Date Time Temp Pulse Resp B/P Pulse Ox O2 Delivery O2 Flow Rate FiO2 05/21/16 08:30 98.1 82 22 187/88 96 05/17/16 19:41 Room Air Intake and Output 05/20/16 05/20/16 05/21/16 15:00 23:00 07:00 Intake Total 150 ml 600 ml 1460 ml Balance 150 ml 600 ml 1460 ml Exam General: The patient is well-developed, Not in acute distress. HEENT: Atraumatic, normocephalic. The pupils are equal and round . Neck: Supple with full range of motion. Chest: Normal expansion of the thorax during inspiration Lungs: Clear to auscultation bilaterally Heart: Normal S1-S2, Regular rhythm and rate. Abdomen: Soft , nontender, nondistended , bowel sounds are present. Extremities: Right foot erythema, positive edema no cyanosis Neurologic: Normal mental status,The patient is awake, alert and oriented . Results Result Diagram: 05/21/16 0540 05/21/16 0540 Results 24 hrs Laboratory Tests Test 05/20/16 16:47 05/20/16 21:28 05/21/16 05:40 05/21/16 07:48 Bedside Glucose 103 90 86 Anion Gap 14 Basophils # 0.0 Basophils % 0.4 Blood Morphology Comment Blood Urea Nitrogen 10 Calcium Level 7.6 L Carbon Dioxide Level 20 L Chloride Level 112 H Creatinine 1.06 Eosinophils # 0.3 Eosinophils % 3.2 Glucose Level 81 Hematocrit 28.0 L Hemoglobin 9.4 L Lymphocytes # 2.0 Lymphocytes % 20.5 Mean Corpuscular Hemoglobin 28.3 L Mean Corpuscular Hemoglobin Concent 33.8 Mean Corpuscular Volume 83.8 Mean Platelet Volume 8.1 Monocytes # 0.6 Monocytes % 6.5 Neutrophils # 6.9 Neutrophils % 69.4 Nucleated Red Blood Cells # 0.0 Nucleated Red Blood Cells % 0.0 Platelet Count 497 H Potassium Level 3.5 Red Blood Count 3.34 L Red Cell Distribution Width 16.6 H Sodium Level 142 White Blood Count 9.9 Test 05/21/16 12:02 Bedside Glucose 98 Medications Medications Current Medications Acetaminophen (Tylenol Tab) 650 mg Q6H PRN PO PAIN LEVEL 1-3 OR FEVER Last administered on 05/19/16 18:32; Admin Dose 650 MG; Start 05/14/16 at 17:30 Acetaminophen/ Hydrocodone Bitart ([place] (5/325)) 1 tab Q6H PRN PO MODERATE PAIN LEVEL 4-6 Last administered on 05/21/16 08:06; Admin Dose 1 TAB; Start at 17:30 Morphine Sulfate (morphine) 2 mg Q4H PRN IV SEVERE PAIN LEVEL 7-10 Last administered on 05/21/16 12:53; Admin Dose 2 MG; Start 05/14/16 at 17:30 Docusate Sodium (Colace) 100 mg Q12H PRN PO CONSTIPATION; Start 05/14/16 at 17: 30 Magnesium Hydroxide (Milk Of Mag) 30 ml DAILY PRN PO CONSTIPATION; Start at 17:30 Sodium Biphosphate/ Sodium Phosphate (Fleet Enema) 133 ml DAILY PRN [place] CONSTIPATION Last administered on 05/17/16 14:15; Admin Dose 133 ML; Start at 17:30 Famotidine (Pepcid) 20 mg DAILY PO Last administered on 05/21/16 08:06; Admin Dose 20 MG; Start 05/14/16 at 21:00 Lorazepam 0.5 mg 0.5 mg Q6H PRN IV ANXIETY; Start 05/14/16 at 17:30 Piperacillin Sod/ Tazobactam Sod (Zosyn 3.375gm/ 100 ml (Pmx)) 100 ml @ 200 mls /hr Q6 IVPB Last administered on 05/21/16 12:32; Admin Dose 200 MLS/HR; Start 05/15/16 at 00:00 Nitroglycerin (Nitroglycerin (Sl Tab) 0.4 Mg) 1 tab Q5M PRN SL ANGINA; Start at 17:30 Aspirin (Aspirin) 81 mg DAILY PO Last administered on 05/21/16 08:05; Admin Dose 81 MG; Start 05/15/16 at 09:00 Atorvastatin Calcium (Lipitor) 10 mg QHS PO Last administered on 05/20/16 21: 24; Admin Dose 10 MG; Start 05/14/16 at 21:00 Heparin Sodium (Porcine) (Heparin (5000 Units/0.5 ml)) 5,000 unit BID SC Last administered on 05/21/16 08:10; Admin Dose 5,000 UNIT; Start 05/14/16 at 21:00 Miscellaneous Information 1 ea NOTE XX ; Start 05/14/16 at 19:30 Glucose (Glutose) 15 gm Q15M PRN PO DECREASED GLUCOSE; Start 05/14/16 at 19:30 Glucose (Glutose) 22.5 gm Q15M PRN PO DECREASED GLUCOSE; Start 05/14/16 at 19: 30 Dextrose (D50w Syringe) 25 ml Q15M PRN IV DECREASED GLUCOSE; Start 05/14/16 at 19:30 Dextrose (D50w Syringe) 50 ml Q15M PRN IV DECREASED GLUCOSE; Start 05/14/16 at 19:30 Glucagon (Glucagen) 1 mg Q15M PRN IM DECREASED GLUCOSE; Start 05/14/16 at 19:30 Glucose (Glutose) 15 gm Q15M PRN BUCCAL DECREASED GLUCOSE; Start 05/14/16 at 19 :30 Zolpidem Tartrate (Ambien) 10 mg HS PRN PO INSOMNIA; Start 05/14/16 at 23:00 Guaifenesin/ Codeine Phosphate (Robitussin Ac Liquid Cup) 5 ml Q4H PRN PO COUGH ; Start 05/17/16 at 11:30 Metoclopramide HCl 10 mg 10 mg Q6H PRN IV N/V Last administered on 05/21/16 01 :30; Admin Dose 10 MG; Start 05/18/16 at 22:00 Ondansetron HCl/ Sodium Chloride (Zofran Inj/NS) 54 ml @ 216 mls/hr Q6H PRN IV NAUSEA AND/OR VOMITING Last administered on 05/19/16 13:38; Admin Dose 216 MLS/HR; Start 05/18/16 at 22:00 Sodium Hypochlorite (Dakin'S (1/4 Strength)) 1 applic DAILY IRR Last administered on 05/21/16 08:07; Admin Dose 1 APPLIC; Start 05/20/16 at 09:00 Hydralazine HCl (Apresoline) 10 mg Q4H PRN IV for sys bp > 160 Last administered on 05/20/16 16:58; Admin Dose 10 MG; Start 05/19/16 at 17:00 Insulin Glargine 10 unit 10 unit QHS SC ; Start 05/20/16 at 21:00 Sodium Chloride (1/2 NS) 1,000 ml @ 75 mls/hr [id number] IV Last administered on 05/20/16 14:54; Admin Dose 75 MLS/HR; Start 05/20/16 at 14:30; Stop 05/22/16 at 12:00 Metoclopramide HCl (Reglan) 5 mg TID PO Last administered on 05/21/16 12:32; Admin Dose 5 MG; Start 05/20/16 at 21:00 Benazepril HCl (Lotensin) 10 mg BID PO Last administered on 05/21/16 08:06; Admin Dose 10 MG; Start 05/20/16 at 14:30 Collagenase (Santyl) 1 applic DAILY TOP Last administered on 05/21/16t 08:05; Admin Dose 1 APPLIC; Start 05/21/16 at 09:00 LOUANN MONTIEL MD May 21, 2016 14:16
[2016-05-21] MEDS: ATORVASTATIN 10 MG TAB PO SCH (20:51)
[2016-05-21] MEDS: ACETAMINOPHEN 325 MG TAB PO PRN (20:51)
[2016-05-21 20:52] VITALS: BP 208/97; RESP 20
[2016-05-21] MEDS: hydrALAzine 20 MG INJ IV PRN (20:52)
[2016-05-21] MEDS: INSULIN GLARGINE [LANtus] 3 ML PEN SC SCH (21:05)
[2016-05-21 22:00] VITALS: BP 156/70; PULSE 82
[2016-05-22] VITALS (8 sets, daily range): BP systolic 148–196; BP diastolic 62–88; PULSE 78–85; RESP 16–20
[2016-05-22] MEDS: PIPER-TAZO 3.375 GM IV (PMX) 100 ML IVPB SCH ×3 (06:08→17:39)
[2016-05-22] MEDS: HYDROCODONE/APAP (5/325) TAB PO PRN ×3 (06:09→17:39)
[2016-05-22] MEDS: hydrALAzine 20 MG INJ IV PRN ×3 (06:15→19:59)
[2016-05-22] MEDS: INSULIN ASPART [NOVOLOG] 3 ML PEN SC SCH ×4 (07:54→20:13)
[2016-05-22] MEDS: ASPIRIN 81 MG TAB PO SCH (08:30)
[2016-05-22] MEDS: FAMOTIDINE 20 MG TAB PO SCH (08:30)
[2016-05-22] MEDS: METOCLOPRAMIDE 5 MG TAB PO SCH ×3 (08:30→20:12)
[2016-05-22] MEDS: BENAZEPRIL 10 MG TAB PO SCH (08:31)
[2016-05-22] MEDS: HEPARIN 5,000 UNIT/0.5 ML SYG SC SCH ×2 (08:31→20:15)
[2016-05-22] MEDS: COLLAGENASE 30 GM TUBE TOP SCH (08:32)
[2016-05-22] MEDS: SODIUM HYPOCHLORITE 0.125% 473 ML BTL IRR SCH (08:32)
[2016-05-22 08:47] LABS: POTASSIUM 3.3 mmol/L (3.5-5.1)
[2016-05-22 08:49] LABS: CREATININE 1.11 mg/dl (0.61-1.24)
[2016-05-22 08:50] LABS: CALCIUM 7.7 mg/dl (8.4-10.2)
[2016-05-22 09:24] LABS: BASOPHIL # 0.1 10^3/ul (0.0-0.1); BASOPHILS % 0.6 % (0.0-2.0); EOSINOPHILS # 0.3 10^3/ul (0.0-0.5); EOSINOPHILS % 3.7 % (0.0-7.0); HEMATOCRIT 28.6 % (42.0-52.0); HEMOGLOBIN 9.6 g/dl (14.0-18.0); LYMPHOCYTES # 1.9 10^3/ul (0.8-2.9); LYMPHOCYTES % 21.7 % (15.0-51.0); MEAN CORPUSCULAR HGB CONC 33.5 g/dl (32.0-37.0); MEAN CORPUSCULAR VOLUME 83.3 fl (82.0-101.0); MEAN PLATELET VOLUME 8.3 fl (7.4-10.4); MONOCYTE # 0.5 10^3/ul (0.3-0.9); MONOCYTES % 6.1 % (0.0-11.0); NEUTROPHIL # 5.8 10^3/ul (1.6-7.5); NEUTROPHILS % 67.9 % (39.0-77.0); PLATELET COUNT 510 10^3/UL (140-440); RED BLOOD COUNT 3.43 10^6/ul (4.70-6.10); RED CELL DISTRIBUTION WIDTH 16.7 % (11.5-14.5); UNCORRECTED WBC 8.5 10^3/ul (4.8-10.8); WHITE BLOOD COUNT 8.5 10^3/ul (4.8-10.8)
[2016-05-22 09:26] LABS: CONDITION 1; LH ANALYZER COMMENTS 1
[2016-05-22] MEDS ORDERED: POTASSIUM CHLORIDE (SR) 20 MEQ TAB PO STA (13:48)
[2016-05-22] MEDS ORDERED: BENAZEPRIL 10 MG TAB PO ONE (14:00)
[2016-05-22] MEDS ORDERED: FUROSEMIDE 40 MG INJ IV ONE (14:00)
[2016-05-22] MEDS ORDERED: METOPROLOL 25 MG TAB PO SCH (14:00)
--- NOTE | 2016-05-22 14:02 | PN ---
DATE: 05/22/2016 INFECTIOUS DISEASE PROGRESS NOTE SUBJECTIVE: The patient is alert, feels good, looks comfortable, no fevers. LABORATORY DATA: WBC today 8.5, no shift, no bands. BUN 13, creatinine 1.1. Repeat blood cultures pending. Initial blood culture grew strep species, Bacteroides fragilis. Wou nd culture grew Morganella morganii and alpha hemolytic strep species. ANTIMICROBIALS: The patient is on Zosyn. PHYSICAL EXAMINATION: GENERAL: Well-developed, middle-aged, man in no distress. HEENT: Head atraumatic, normocephalic. Sclerae anicteric. Buccal mucosa dry. NECK: Supple, trachea midline. CHEST: Rise symmetrical. Breath sounds clear. HEART: S1, S2. ABDOMEN: Soft, bowel sounds present. EXTREMITIES: No cyanosis. Right foot dressing intact. ASSESSMENT: 1. Resolving sepsis. 2. Bacteremia secondary to #3. 3. Right foot gangrene, osteomyelitis, status post I and D. 4. Severe peripheral vascular disease. 5. Diabetes. 6. History of left lower extremity bypass graft. PLAN: The patient remains stable. He is being followed by podiatry. He is on Zosyn which covers a ll the bacteria that he is growing in his blood and wound. Pending repeat blood cultures. The ludwin ent will need a PICC line and treatment with 6 weeks IV antibiotics, likely Rocephin daily and oral Flagyl for bacteroides coverage. Will follow vascular, podiatry recommendations. Dictated By: SEBASTIAN YORK PROSTHETIST for NATAN LOCKWOOD/SHANNAN Conf#: [id number] DID#: [id number]
[2016-05-22] MEDS: morphine 2 MG INJ IV PRN ×2 (14:09→22:34)
[2016-05-22] MEDS ORDERED: POTASSIUM CHLORIDE 250 ML IVPB SCH (15:30)
[2016-05-22] MEDS: D5W-0.45 NACL + KCL 20 MEQ 1,000 ML IV SCH (16:00)
[2016-05-22] MEDS: POTASSIUM CHLORIDE 250 ML IVPB SCH ×2 (17:40→21:00)
[2016-05-22] MEDS: METOPROLOL 50 MG TAB PO SCH (20:12)
[2016-05-22] MEDS: ATORVASTATIN 10 MG TAB PO SCH (20:12)
[2016-05-22] MEDS: INSULIN GLARGINE [LANtus] 3 ML PEN SC SCH (20:15)
[2016-05-23] VITALS (11 sets, daily range): BP systolic 152–201; BP diastolic 50–93; PULSE 61–74; RESP 16–20
[2016-05-23] MEDS: PIPER-TAZO 3.375 GM IV (PMX) 100 ML IVPB SCH ×3 (01:05→12:48)
[2016-05-23] MEDS: D5W-0.45 NACL + KCL 20 MEQ 1,000 ML IV SCH (04:02)
[2016-05-23] MEDS: morphine 2 MG INJ IV PRN ×4 (05:47→20:41)
[2016-05-23 06:17] LABS: POTASSIUM 4.4 mmol/L (3.5-5.1)
[2016-05-23 06:20] LABS: CREATININE 1.08 mg/dl (0.61-1.24)
[2016-05-23 06:21] LABS: CALCIUM 7.9 mg/dl (8.4-10.2)
[2016-05-23] MEDS: INSULIN ASPART [NOVOLOG] 3 ML PEN SC SCH ×4 (07:57→20:49)
[2016-05-23 08:03] LABS: BASOPHILS % 0.4 % (0.0-2.0); EOSINOPHILS # 0.3 10^3/ul (0.0-0.5); EOSINOPHILS % 3.4 % (0.0-7.0); HEMATOCRIT 27.6 % (42.0-52.0); HEMOGLOBIN 8.9 g/dl (14.0-18.0); LYMPHOCYTES # 2.2 10^3/ul (0.8-2.9); LYMPHOCYTES % 26.3 % (15.0-51.0); MEAN CORPUSCULAR HEMOGLOBIN 27.6 pg (29.0-33.0); MEAN CORPUSCULAR HGB CONC 32.2 g/dl (32.0-37.0); MEAN CORPUSCULAR VOLUME 85.4 fl (82.0-101.0); MEAN PLATELET VOLUME 10.1 fl (7.4-10.4); MONOCYTE # 0.7 10^3/ul (0.3-0.9); MONOCYTES % 8.6 % (0.0-11.0); NEUTROPHIL # 5.1 10^3/ul (1.6-7.5); PLATELET COUNT 509 10^3/UL (140-415); RED BLOOD COUNT 3.23 10^6/ul (4.70-6.10); RED CELL DISTRIBUTION WIDTH 15.9 % (11.5-14.5); WHITE BLOOD COUNT 8.4 10^3/ul (4.8-10.8)
[2016-05-23] MEDS: METOCLOPRAMIDE 5 MG TAB PO SCH ×3 (08:11→20:50)
[2016-05-23] MEDS: ASPIRIN 81 MG TAB PO SCH (08:11)
[2016-05-23] MEDS: FAMOTIDINE 20 MG TAB PO SCH (08:12)
[2016-05-23] MEDS: METOPROLOL 50 MG TAB PO SCH ×2 (08:12→20:50)
[2016-05-23] MEDS: HEPARIN 5,000 UNIT/0.5 ML SYG SC SCH ×2 (08:13→20:57)
[2016-05-23] MEDS: COLLAGENASE 30 GM TUBE TOP SCH (08:13)
[2016-05-23] MEDS: SODIUM HYPOCHLORITE 0.125% 473 ML BTL IRR SCH ×2 (08:13→21:00)
[2016-05-23] MEDS ORDERED: BENAZEPRIL 40 MG TAB PO SCH (09:00)
[2016-05-23] MEDS ORDERED: FUROSEMIDE 20 MG TAB PO SCH (09:00)
[2016-05-23] MEDS: hydrALAzine 20 MG INJ IV PRN (11:55)
--- NOTE | 2016-05-23 13:07 | PN ---
DATE: 05/23/2016 SUBJECTIVE: Patient is alert, sitting in bed complaining of pain. He is in no distress, tentativel y scheduled for surgery today and currently n.p.o. WBC 8.4, no shift, no bands. BUN 12, creatinine 1.08. MICROBIOLOGY: Blood culture on admission grew alpha hemolytic strep species and Bacteroides fragili s. Right foot wound culture growing Morganella morganii, and alpha hemolytic strep species. Urine culture had been negative. ANTIMICROBIALS: The patient is on Zosyn. PHYSICAL EXAMINATION: GENERAL: Well-developed, middle-aged man who is alert, in no distress. HEENT: Head atraumatic, normocephalic. Sclerae anicteric. Buccal mucosa pink. NECK: Supple. CHEST: Rise symmetrical. Breath sounds clear. HEART: S1, S2. ABDOMEN: Soft, bowel tones present. EXTREMITIES: With right foot dressing intact. ASSESSMENT: 1. Status post sepsis with bacteremia secondary to #2. 2. Right foot gangrene with osteomyelitis and abscess, status post incision and drainage. 3. Peripheral vascular disease with a history of left lower extremity bypass graft. 4. Diabetes. PLAN: We are going to start patient on Rocephin and Flagyl, discontinue Zosyn and repeat blood cult ures if it has not been done. Continue wound care as per podiatry and anticipate treating for 6 wee ks for osteomyelitis. Dictated By: SEBASTIAN [employer] for NATAN SOSA MD NI/NTS Conf#: [id number] DID#: [id number]
--- NOTE | 2016-05-23 13:19 | PN ---
Date/Time of Note Date/Time of Note DATE: 05/23/16 TIME: 13:16 Assessment/Plan Lines/Catheters IV C[facility]ter Type (from [facility]): Peripheral IV Assessment/Plan Problems: (1) Osteomyelitis of right foot (2) Open wound of right foot (3) Foot abscess, right (4) Diabetes mellitus type 2 with complications Status: Chronic (5) Peripheral vascular disease Assessment/Plan Bedside drainage or right foot abscess done today. Cleansed wound using 1/4 strength Dakin's solution; applied Santyl ointment and dry sterile dressing. Cancelled case today for I&D. Patient may be discharged as per foot surgery. Follow up in the office in one week. Exam/Review of Systems Vital Signs Vitals Vital Signs Date Time Temp Pulse Resp B/P Pulse Ox O2 Delivery O2 Flow Rate FiO2 05/23/16 12:00 97.7 62 16 201/93 97 Room Air Intake and Output 05/22/16 05/22/16 05/23/16 15:00 23:00 07:00 Intake Total 2430 ml 1150 ml Output Total 1250 ml 900 ml Balance 1180 ml 250 ml Results Result Diagram: 05/23/16 0535 05/23/16 0535 LARA JEFFREY DPM May 23, 2016 13:19
--- NOTE | 2016-05-23 13:19 | PN ---
Date/Time of Note Date/Time of Note DATE: 05/23/16 TIME: 13:18 Assessment/Plan VTE Prophylaxis VTE Prophylaxis Intervention: other Lines/Catheters IV Catheter Type (from Nrs): Peripheral IV Assessment/Plan Chief Complaint/Hosp Course Assessment and plan 1. Non-pressure chronic ulcer of other part of left foot with necrosis of bone - f/u Podiatry and vascular surgery consult rec's. IV fluids as well. Patient will require repeat surgical management. Debridement with drainage of continued abscess of the right foot. - Follow up culture results. Tylenol p.r.n. pain and fevers. -Status post I&D of the right foot abscess - Continue broad-spectrum IV antibiotics 2. Osteomyelitis of left foot -Continue vancomycin, infectious disease doctor has been consulted 2. Essential hypertension. Start patient on lisinopril, and continue hydralazine as needed 3. Sepsis, most likely secondary to right foot infection. Again, see #1. Continue broad-spectrum antibiotics and IV fluids. 4. High cholesterol. Continue Lipitor. 5. Type 2 diabetes. Continue home insulin regimen. Insulin sliding scale low- carb diet 6. History of peripheral vascular disease - f/u vascular surgery consult, 7. Right eye ptosis, unclear source. Consider infectious disease consult. Continue to monitor for now. 8. Gastrointestinal prophylaxis. Keep him on H2 lynsey. 9. Deep venous thrombosis prophylaxis. He is on heparin subq. Disposition: Follow up podiatry recommendation Problems: Subjective 24 Hr Interval Summary Free Text/Dictation Patient denies any chest pain or shortness of breath Denies of any headache or dizziness Complains of having right foot discomfort Exam/Review of Systems Vital Signs Vitals Vital Signs Date Time Temp Pulse Resp B/P Pulse Ox O2 Delivery O2 Flow Rate FiO2 05/23/16 12:00 97.7 62 16 201/93 97 Room Air Intake and Output 05/22/16 05/22/16 05/23/16 15:00 23:00 07:00 Intake Total 2430 ml 1150 ml Output Total 1250 ml 900 ml Balance 1180 ml 250 ml Exam General: The patient is well-developed, Not in acute distress. HEENT: Atraumatic, normocephalic. The pupils are equal and round . Neck: Supple with full range of motion. Chest: Normal expansion of the thorax during inspiration Lungs: Clear to auscultation bilaterally Heart: Normal S1-S2, Regular rhythm and rate. Abdomen: Soft , nontender, nondistended , bowel sounds are present. Extremities: Right foot erythema and cellulitis/abscess, +1 edema Neurologic: Normal mental status,The patient is awake, alert and oriented . Results Result Diagram: 05/23/16 0535 05/23/16 0535 Results 24 hrs Laboratory Tests Test 05/22/16 16:53 05/22/16 20:08 05/23/16 05:35 05/23/16 07:43 Bedside Glucose 131 142 117 Anion Gap 13 Basophils # 0.0 Basophils % 0.4 Blood Urea Nitrogen 12 Calcium Level 7.9 L Carbon Dioxide Level 21 Chloride Level 112 H Creatinine 1.08 Eosinophils # 0.3 Eosinophils % 3.4 Glucose Level 111 Hematocrit 27.6 L Hemoglobin 8.9 L Lymphocytes # 2.2 Lymphocytes % 26.3 Mean Corpuscular Hemoglobin 27.6 L Mean Corpuscular Hemoglobin Concent 32.2 Mean Corpuscular Volume 85.4 Mean Platelet Volume 10.1 # Monocytes # 0.7 Monocytes % 8.6 Neutrophils # 5.1 Neutrophils % 60.0 Nucleated Red Blood Cells # 0.0 Nucleated Red Blood Cells % 0.0 Platelet Count 509 H Potassium Level 4.4 Red Blood Count 3.23 L Red Cell Distribution Width 15.9 H Sodium Level 142 White Blood Count 8.4 Test 05/23/16 12:44 Bedside Glucose 119 Medications Medications Current Medications Acetaminophen (Tylenol Tab) 650 mg Q6H PRN PO PAIN LEVEL 1-3 OR FEVER Last administered on 05/21/16 20:51; Admin Dose 650 MG; Start 05/14/16 at 17:30 Acetaminophen/ Hydrocodone Bitart ([place] (5/325)) 1 tab Q6H PRN PO MODERATE PAIN LEVEL 4-6 Last administered on 05/22/16 17:39; Admin Dose 1 TAB; Start at 17:30 Morphine Sulfate (morphine) 2 mg Q4H PRN IV SEVERE PAIN LEVEL 7-10 Last administered on 05/23/16 11:22; Admin Dose 2 MG; Start 05/14/16 at 17:30 Docusate Sodium (Colace) 100 mg Q12H PRN PO CONSTIPATION; Start 05/14/16 at 17: 30 Magnesium Hydroxide (Milk Of Mag) 30 ml DAILY PRN PO CONSTIPATION; Start at 17:30 Sodium Biphosphate/ Sodium Phosphate (Fleet Enema) 133 ml DAILY PRN [place] CONSTIPATION Last administered on 05/17/16 14:15; Admin Dose 133 ML; Start at 17:30 Famotidine (Pepcid) 20 mg DAILY PO Last administered on 05/23/16 08:12; Admin Dose 20 MG; Start 05/14/16 at 21:00 Lorazepam (Ativan) 0.5 mg Q6H PRN IV ANXIETY; Start 05/14/16 at 17:30 Nitroglycerin (Nitroglycerin (Sl Tab) 0.4 Mg) 1 tab Q5M PRN SL ANGINA; Start at 17:30 Aspirin (Aspirin) 81 mg DAILY PO Last administered on 05/23/16 08:11; Admin Dose 81 MG; Start 05/15/16 at 09:00 Atorvastatin Calcium (Lipitor) 10 mg QHS PO Last administered on 05/22/16 20: 12; Admin Dose 10 MG; Start 05/14/16 at 21:00 Heparin Sodium (Porcine) (Heparin (5000 Units/0.5 ml)) 5,000 unit BID SC Last administered on 05/22/16 20:15; Admin Dose 5,000 UNIT; Start 05/14/16 at 21:00 Miscellaneous Information 1 ea NOTE XX ; Start 05/14/16 at 19:30 Glucose (Glutose) 15 gm Q15M PRN PO DECREASED GLUCOSE; Start 05/14/16 at 19:30 Glucose (Glutose) 22.5 gm Q15M PRN PO DECREASED GLUCOSE; Start 05/14/16 at 19: 30 Dextrose (D50w Syringe) 25 ml Q15M PRN IV DECREASED GLUCOSE; Start 05/14/16 at 19:30 Dextrose (D50w Syringe) 50 ml Q15M PRN IV DECREASED GLUCOSE; Start 05/14/16 at 19:30 Glucagon (Glucagen) 1 mg Q15M PRN IM DECREASED GLUCOSE; Start 05/14/16 at 19:30 Glucose (Glutose) 15 gm Q15M PRN BUCCAL DECREASED GLUCOSE; Start 05/14/16 at 19 :30 Zolpidem Tartrate (Ambien) 10 mg HS PRN PO INSOMNIA; Start 05/14/16 at 23:00 Guaifenesin/ Codeine Phosphate (Robitussin Ac Liquid Cup) 5 ml Q4H PRN PO COUGH ; Start 05/17/16 at 11:30 Metoclopramide HCl 10 mg 10 mg Q6H PRN IV N/V Last administered on 05/21/16 01 :30; Admin Dose 10 MG; Start 05/18/16 at 22:00 Ondansetron HCl/ Sodium Chloride (Zofran Inj/NS) 54 ml @ 216 mls/hr Q6H PRN IV NAUSEA AND/OR VOMITING Last administered on 05/19/16 13:38; Admin Dose 216 MLS/HR; Start 05/18/16 at 22:00 Sodium Hypochlorite (Dakin'S (1/4 Strength)) 1 applic DAILY IRR Last administered on 05/22/16 08:32; Admin Dose 1 APPLIC; Start 05/20/16 at 09:00 Hydralazine HCl (Apresoline) 10 mg Q4H PRN IV for sys bp > 160 Last administered on 05/23/16 11:55; Admin Dose 10 MG; Start 05/19/16 at 17:00 Insulin Glargine (Lantus) 10 unit QHS SC Last administered on 05/22/16 20:15; Admin Dose 10 UNIT; Start 05/20/16 at 21:00 Metoclopramide HCl (Reglan) 5 mg TID PO Last administered on 05/23/16 08:11; Admin Dose 5 MG; Start 05/20/16 at 21:00 Collagenase (Santyl) 1 applic DAILY TOP Last administered on 05/22/16 08:32; Admin Dose 1 APPLIC; Start 05/21/16 at 09:00 Benazepril HCl (Lotensin) 40 mg DAILY PO Last administered on 05/23/16 08:12; Admin Dose 40 MG; Start 05/23/16 at 09:00 Metoprolol Tartrate (Lopressor) 50 mg BID PO Last administered on 05/23/16 08: 12; Admin Dose 50 MG; Start 05/22/16 at 21:00 Furosemide 20 mg 20 mg DAILY PO Last administered on 05/23/16 08:12; Admin Dose 20 MG; Start 05/23/16 at 09:00 Potassium Chloride/Dextrose/ Sod Cl 1,000 ml @ 50 mls/hr Q20H IV Last administered on 05/23/16t 04:02; Admin Dose 50 MLS/HR; Start 05/22/16 at 16:00 Ceftriaxone Sodium 50 ml @ 100 mls/hr Q24H IVPB ; Start 05/23/16 at 14:00 Metronidazole (Flagyl 500 Mg (Pmx)) 100 ml @ 100 mls/hr Q8 IVPB ; Start at 14:00 LOUANN MONTIEL MD May 23, 2016 13:19
[2016-05-23] MEDS ORDERED: LIDOCAINE 1% (MDV) 20 ML INJ SC ONE (13:30)
[2016-05-23] MEDS: metroNIDAZOLE 500 MG/NS (PMX) 100 ML IVPB SCH ×2 (14:01→22:01)
[2016-05-23] MEDS: CEFTRIAXONE 2 GM/50 ML (PMX) 50 ML IVPB SCH (15:43)
--- NOTE | 2016-05-23 18:26 | RADRPT ---
PROCEDURE: US guidance for PICC line CLINICAL INDICATION: PICC line placement TECHNIQUE: Multiple real-time images were acquired of the patient's arm utilizing a high resolutio n transducer. This was performed by the PICC line nurse for venous access. COMPARISON: None FINDINGS: Ultrasound guidance for PICC line placement. IMPRESSION: Ultrasound guidance for PICC line placement. RPTAT: AA .Maverick Bradley MD, MD Date Time Electronically viewed and signed by .Maverick Bradley MD, on 05/23/2016 18:26 .S/
[2016-05-23] MEDS: HYDROCODONE/APAP (5/325) TAB PO PRN (18:29)
[2016-05-23] MEDS: FUROSEMIDE 20 MG TAB PO SCH (18:32)
--- NOTE | 2016-05-23 18:45 | RADRPT ---
PROCEDURE: XR Chest. CLINICAL INDICATION: Check PICC line position. TECHNIQUE: Single frontal view. COMPARISON: 05/23/2016. 1728 hours. FINDINGS: There is a left arm PICC line with the tip in the lower superior vena cava. The lungs are clear. The heart is enlarged. There is calcification in the aorta consistent with atherosclerosis. There is no pleural effusion. There is no pneumothorax. IMPRESSION: 1. Satisfactory position of left arm PICC line. 2. Cardiomegaly and atherosclerosis. 3. Clear lungs. RPTAT: QQ .Nehemiah Landeros MD, MD Date Time Electronically viewed and signed by .Nehemiah Landeros MD, MD on 05/23/2016 18:45 .R/
--- NOTE | 2016-05-23 18:45 | RADRPT ---
PROCEDURE: XR Chest. CLINICAL INDICATION: Check PICC line position. TECHNIQUE: Single frontal view. COMPARISON: 05/14/2016. FINDINGS: There is a left arm PICC line with the tip in the right subclavian vein. The lungs are clear. The heart is mildly enlarged. There is calcification in the aorta consistent with atherosclerosis. There is no pleural effusion. There is no pneumothorax. IMPRESSION: 1. Suboptimal position of left arm PICC line. 2. Cardiomegaly and atherosclerosis. 3. Clear lungs. RPTAT: QQ .Nehemiah Landeros MD, MD Date Time Electronically viewed and signed by .Nehemiah Landeros MD, MD on 05/23/2016 18:44 .R/
[2016-05-23] MEDS ORDERED: SOD CHLORIDE 0.9% 100 ML ONE (20:45)
[2016-05-23] MEDS: ATORVASTATIN 10 MG TAB PO SCH (20:50)
[2016-05-23] MEDS: BENAZEPRIL 20 MG TAB PO SCH (20:50)
[2016-05-23] MEDS: INSULIN GLARGINE [LANtus] 3 ML PEN SC SCH (20:57)
[2016-05-24] VITALS (8 sets, daily range): BP systolic 154–197; BP diastolic 63–94; PULSE 60–74; RESP 18–21
[2016-05-24] MEDS: morphine 2 MG INJ IV PRN ×4 (01:10→20:37)
[2016-05-24] MEDS: metroNIDAZOLE 500 MG/NS (PMX) 100 ML IVPB SCH ×3 (05:52→21:24)
[2016-05-24] MEDS: FUROSEMIDE 20 MG TAB PO SCH ×2 (05:53→17:27)
[2016-05-24 06:13] LABS: ADD SCAN DIFF NO
[2016-05-24 06:32] LABS: POTASSIUM 3.6 mmol/L (3.5-5.1)
[2016-05-24 06:34] LABS: CREATININE 1.06 mg/dl (0.61-1.24)
[2016-05-24 06:36] LABS: MAGNESIUM 1.7 mg/dl (1.7-2.5)
[2016-05-24 06:43] LABS: BASOPHILS % 0.3 % (0.0-2.0); EOSINOPHILS % 3.4 % (0.0-7.0); HEMATOCRIT 26.5 % (42.0-52.0); HEMOGLOBIN 8.2 g/dl (14.0-18.0); LYMPHOCYTES # 2.3 10^3/ul (0.8-2.9); MEAN CORPUSCULAR HEMOGLOBIN 26.9 pg (29.0-33.0); MEAN CORPUSCULAR HGB CONC 30.9 g/dl (32.0-37.0); MEAN CORPUSCULAR VOLUME 86.9 fl (82.0-101.0); MEAN PLATELET VOLUME 10.2 fl (7.4-10.4); MONOCYTE # 0.6 10^3/ul (0.3-0.9); MONOCYTES % 8.2 % (0.0-11.0); NEUTROPHIL # 4.6 10^3/ul (1.6-7.5); NEUTROPHILS % 58.1 % (39.0-77.0); PLATELET COUNT 446 10^3/UL (140-415); RED BLOOD COUNT 3.05 10^6/ul (4.70-6.10); RED CELL DISTRIBUTION WIDTH 16.1 % (11.5-14.5); WHITE BLOOD COUNT 7.8 10^3/ul (4.8-10.8)
[2016-05-24 06:44] LABS: EOSINOPHILS # 0.3 10^3/ul (0.0-0.5)
[2016-05-24] MEDS: D5W-0.45 NACL + KCL 20 MEQ 1,000 ML IV SCH (08:00)
[2016-05-24] MEDS: INSULIN ASPART [NOVOLOG] 3 ML PEN SC SCH ×4 (08:15→21:00)
[2016-05-24] MEDS: ASPIRIN 81 MG TAB PO SCH (08:25)
[2016-05-24] MEDS: SODIUM HYPOCHLORITE 0.125% 473 ML BTL IRR SCH ×2 (08:25→21:20)
[2016-05-24] MEDS: METOCLOPRAMIDE 5 MG TAB PO SCH ×3 (08:28→21:15)
[2016-05-24] MEDS: BENAZEPRIL 20 MG TAB PO SCH (08:28)
[2016-05-24] MEDS: COLLAGENASE 30 GM TUBE TOP SCH (08:29)
[2016-05-24] MEDS: FAMOTIDINE 20 MG TAB PO SCH ×2 (08:29→21:14)
[2016-05-24] MEDS: METOPROLOL 50 MG TAB PO SCH ×2 (08:29→21:15)
[2016-05-24] MEDS: HEPARIN 5,000 UNIT/0.5 ML SYG SC SCH ×2 (08:43→21:18)
[2016-05-24] MEDS: HYDROCODONE/APAP (5/325) TAB PO PRN ×3 (10:07→23:38)
[2016-05-24] MEDS: hydrALAzine 20 MG INJ IV PRN ×2 (10:11→23:39)
--- NOTE | 2016-05-24 11:49 | PDOCDIS ---
Discharge Instructions CONDITION Patient Condition: Good HOME CARE INSTRUCTIONS: Special Diet: low salt / low carb ACTIVITY: Activity Restrictions: Slowly Increase Activity Rest between Activity Avoid heavy lifting Keep Limb Elevated FOLLOW UP/APPOINTMENTS Appointments Follow up with podiatry next week and then q. weekly Follow up in infectious disease doctor in 2-3 weeks Follow-up with PCP as outpatient LOUANN MONTIEL MD May 24, 2016 11:49
[2016-05-24] MEDS ORDERED: INSU100I12 SQ (11:58)
[2016-05-24] MEDS ORDERED: LAS20 PO (11:58)
[2016-05-24] MEDS ORDERED: DOCU-216 PO (11:58)
[2016-05-24] MEDS ORDERED: APR50 PO (11:58)
[2016-05-24] MEDS ORDERED: METR500T PO (11:58)
[2016-05-24] MEDS ORDERED: FAMO20TA18 PO (11:58)
[2016-05-24] MEDS ORDERED: ASPI81TA3 PO (11:58)
[2016-05-24] MEDS ORDERED: DAK125 IRR (11:58)
[2016-05-24] MEDS ORDERED: SAN30GM TOP (11:58)
[2016-05-24] MEDS ORDERED: IPRA4AER INHALATION (11:58)
[2016-05-24] MEDS ORDERED: CEFT1PIG2 IVPB (11:58)
[2016-05-24] MEDS ORDERED: METO-429 PO (11:58)
[2016-05-24] MEDS ORDERED: ATOR10TA65 PO (11:58)
[2016-05-24] MEDS ORDERED: LANT3I SC (11:58)
[2016-05-24] MEDS ORDERED: BENA20TA48 PO (11:58)
[2016-05-24] MEDS ORDERED: METO5TAB11 PO (11:58)
[2016-05-24] MEDS ORDERED: BENAZEPRIL 20 MG TAB PO ONE (12:00)
--- NOTE | 2016-05-24 12:12 | PN ---
Date/Time of Note Date/Time of Note DATE: 05/24/16 TIME: 12:08 Assessment/Plan VTE Prophylaxis VTE Prophylaxis Intervention: heparin Lines/Catheters IV [facility]ter Type (from [facility] PICC Line Central line still needed: Yes Urinary Cath still in place: No Assessment/Plan Chief Complaint/Hosp Course Assessment and plan 1. Non-pressure chronic ulcer of other part of left foot with necrosis of bone - f/u Podiatry and vascular surgery consult rec's. IV fluids as well. - Follow up culture results. Tylenol p.r.n. pain and fevers. -Status post I&D of the right foot abscess, continue wound care - Continue broad-spectrum IV antibiotics 2. Osteomyelitis of left foot -Continue Rocephin, infectious disease doctor has been consulted 2. Essential hypertension. Continue metoprolol, benazepril, hydralazine, continue IV hydralazine as needed for systolic blood pressure greater than 165 3. Sepsis, most likely secondary to right foot infection. Again, see #1. Continue broad-spectrum antibiotics and IV fluids. 4. High cholesterol. Continue Lipitor. 5. Type 2 diabetes. Continue home insulin regimen. Insulin sliding scale low- carb diet 6. History of peripheral vascular disease -continue aspirin and statin 7. Right eye ptosis, unclear source. Consider infectious disease consult. Continue to monitor for now. 8. Gastrointestinal prophylaxis. Keep him on H2 lynsey. 9. Deep venous thrombosis prophylaxis. He is on heparin subq. Disposition: Follow up podiatry recommendation Problems: Subjective 24 Hr Interval Summary Free Text/Dictation Patient denies of any chest pain or shortness of breath Tolerating oral intake No nausea vomiting or diarrhea His blood pressure was found to be elevated greater than 190 several occasions and has been treated with as needed hydralazine, his blood pressure medication was adjusted Exam/Review of Systems Vital Signs Vitals Vital Signs Date Time Temp Pulse Resp B/P Pulse Ox O2 Delivery O2 Flow Rate FiO2 05/24/16 11:24 71 154/74 Room Air 05/24/16 08:05 98.6 21 96 Intake and Output 05/23/16 05/23/16 05/24/16 15:00 23:00 07:00 Intake Total 600 ml 1170 ml 420 ml Output Total 300 ml Balance 600 ml 1170 ml 120 ml Exam General: The patient is well-developed, Not in acute distress. HEENT: Atraumatic, normocephalic. The pupils are equal and round . Neck: Supple with full range of motion. Chest: Normal expansion of the thorax during inspiration Lungs: Clear to auscultation bilaterally Heart: Normal S1-S2, Regular rhythm and rate. Abdomen: Soft , nontender, nondistended , bowel sounds are present. Extremities: Right foot diabetic ulcer is packed with dry dressing, +1 edema no cyanosis Neurologic: Normal mental status,The patient is awake, alert and oriented . Results Result Diagram: 05/24/16 0534 05/24/16 0530 Results 24 hrs Laboratory Tests Test 05/23/16 12:44 05/23/16 18:29 05/23/16 20:47 05/24/16 05:30 Bedside Glucose 119 138 161 Anion Gap 10 Blood Urea Nitrogen 13 Calcium Level 8.0 L Carbon Dioxide Level 24 Chloride Level 112 H Creatinine 1.06 Glucose Level 95 Magnesium Level 1.7 Potassium Level 3.6 Sodium Level 142 Test 05/24/16 05:34 05/24/16 08:10 Basophils # 0.0 Basophils % 0.3 Eosinophils # 0.3 Eosinophils % 3.4 Hematocrit 26.5 L Hemoglobin 8.2 L Lymphocytes # 2.3 Lymphocytes % 29.0 Mean Corpuscular Hemoglobin 26.9 L Mean Corpuscular Hemoglobin Concent 30.9 L Mean Corpuscular Volume 86.9 Mean Platelet Volume 10.2 Monocytes # 0.6 Monocytes % 8.2 Neutrophils # 4.6 Neutrophils % 58.1 Nucleated Red Blood Cells # 0.0 Nucleated Red Blood Cells % 0.0 Platelet Count 446 H Red Blood Count 3.05 L Red Cell Distribution Width 16.1 H White Blood Count 7.8 Bedside Glucose 90 Medications Medications Current Medications Acetaminophen (Tylenol Tab) 650 mg Q6H PRN PO PAIN LEVEL 1-3 OR FEVER Last administered on 05/21/16 20:51; Admin Dose 650 MG; Start 05/14/16 at 17:30 Acetaminophen/ Hydrocodone Bitart ([place] (5/325)) 1 tab Q6H PRN PO MODERATE PAIN LEVEL 4-6 Last administered on 05/24/16 10:07; Admin Dose 1 TAB; Start at 17:30 Morphine Sulfate (morphine) 2 mg Q4H PRN IV SEVERE PAIN LEVEL 7-10 Last administered on 05/24/16 08:25; Admin Dose 2 MG; Start 05/14/16 at 17:30 Docusate Sodium (Colace) 100 mg Q12H PRN PO CONSTIPATION Last administered on 10:07; Admin Dose 100 MG; Start 05/14/16 at 17:30 Magnesium Hydroxide (Milk Of Mag) 30 ml DAILY PRN PO CONSTIPATION Last administered on 05/24/16 10:07; Admin Dose 30 ML; Start 05/14/16 at 17:30 Sodium Biphosphate/ Sodium Phosphate (Fleet Enema) 133 ml DAILY PRN [place] CONSTIPATION Last administered on 05/17/16 14:15; Admin Dose 133 ML; Start at 17:30 Lorazepam (Ativan) 0.5 mg Q6H PRN IV ANXIETY; Start 05/14/16 at 17:30 Nitroglycerin (Nitroglycerin (Sl Tab) 0.4 Mg) 1 tab Q5M PRN SL ANGINA; Start at 17:30 Aspirin (Aspirin) 81 mg DAILY PO Last administered on 05/24/16 08:25; Admin Dose 81 MG; Start 05/15/16 at 09:00 Atorvastatin Calcium (Lipitor) 10 mg QHS PO Last administered on 05/23/16 20: 50; Admin Dose 10 MG; Start 05/14/16 at 21:00 Heparin Sodium (Porcine) (Heparin (5000 Units/0.5 ml)) 5,000 unit BID SC Last administered on 05/24/16 08:43; Admin Dose 5,000 UNIT; Start 05/14/16 at 21:00 Miscellaneous Information 1 ea NOTE XX ; Start 05/14/16 at 19:30 Glucose (Glutose) 15 gm Q15M PRN PO DECREASED GLUCOSE; Start 05/14/16 at 19:30 Glucose (Glutose) 22.5 gm Q15M PRN PO DECREASED GLUCOSE; Start 05/14/16 at 19: 30 Dextrose (D50w Syringe) 25 ml Q15M PRN IV DECREASED GLUCOSE; Start 05/14/16 at 19:30 Dextrose (D50w Syringe) 50 ml Q15M PRN IV DECREASED GLUCOSE; Start 05/14/16 at 19:30 Glucagon (Glucagen) 1 mg Q15M PRN IM DECREASED GLUCOSE; Start 05/14/16 at 19:30 Glucose (Glutose) 15 gm Q15M PRN BUCCAL DECREASED GLUCOSE; Start 05/14/16 at 19 :30 Zolpidem Tartrate (Ambien) 10 mg HS PRN PO INSOMNIA; Start 05/14/16 at 23:00 Guaifenesin/ Codeine Phosphate (Robitussin Ac Liquid Cup) 5 ml Q4H PRN PO COUGH ; Start 05/17/16 at 11:30 Metoclopramide HCl 10 mg 10 mg Q6H PRN IV N/V Last administered on 05/21/16 01 :30; Admin Dose 10 MG; Start 05/18/16 at 22:00 Ondansetron HCl/ Sodium Chloride (Zofran Inj/NS) 54 ml @ 216 mls/hr Q6H PRN IV NAUSEA AND/OR VOMITING Last administered on 05/19/16 13:38; Admin Dose 216 MLS/HR; Start 05/18/16 at 22:00 Hydralazine HCl (Apresoline) 10 mg Q4H PRN IV for sys bp > 160 Last administered on 05/24/16 10:11; Admin Dose 10 MG; Start 05/19/16 at 17:00 Insulin Glargine (Lantus) 10 unit QHS SC Last administered on 05/23/16 20:57; Admin Dose 10 UNIT; Start 05/20/16 at 21:00 Metoclopramide HCl (Reglan) 5 mg TID PO Last administered on 05/24/16 08:28; Admin Dose 5 MG; Start 05/20/16 at 21:00 Collagenase (Santyl) 1 applic DAILY TOP Last administered on 05/24/16 08:29; Admin Dose 1 APPLIC; Start 05/21/16 at 09:00 Metoprolol Tartrate 50 mg 50 mg BID PO Last administered on 05/24/16 08:29; Admin Dose 50 MG; Start 05/22/16 at 21:00 Ceftriaxone Sodium 50 ml @ 100 mls/hr Q24H IVPB Last administered on 15:43; Admin Dose 100 MLS/HR; Start 05/23/16 at 14:00 Metronidazole (Flagyl 500 Mg (Pmx)) 100 ml @ 100 mls/hr Q8 IVPB Last administered on 05/24/16 05:52; Admin Dose 100 MLS/HR; Start 05/23/16 at 14:00 IV Flush (NS 10 ml) 10 ml PRN PRN IV IV PROTOCOL; Start 05/23/16 at 18:00 Sodium Hypochlorite (Dakin'S (1/4 Strength)) 1 applic BID IRR Last administered on 05/24/16 08:25; Admin Dose 1 APPLIC; Start 05/23/16 at 21:00 Famotidine (Pepcid) 20 mg Q12 PO ; Start 05/24/16 at 21:00 Benazepril HCl (Lotensin) 40 mg DAILY PO ; Start 05/25/16 at 09:00 Hydralazine HCl (Apresoline) 100 mg TID PO ; Start 05/24/16 at 13:00 LOUANN MONTIEL MD May 24, 2016 12:11
--- NOTE | 2016-05-24 13:03 | CONS ---
Date/Time of Note Date/Time of Note DATE: 05/24/16 TIME: 13:01 Assessment/Plan Assessment/Plan Chief Complaint/Hosp Course SUBJECTIVE: Patient is alert, in no distress, no fevers/v/n/d MICROBIOLOGY: Blood culture on admission grew alpha hemolytic strep species and Bacteroides fragilis. Right foot wound culture growing Morganella morganii , and alpha hemolytic strep species. Urine culture had been negative. ANTIMICROBIALS: Rocephin Flagyl PHYSICAL EXAMINATION: GENERAL: Well-developed, middle-aged man who is alert, in no distress. HEENT: Head atraumatic, normocephalic. Sclerae anicteric. Buccal mucosa pink. NECK: Supple. CHEST: Rise symmetrical. Breath sounds clear. HEART: S1, S2. ABDOMEN: Soft, bowel tones present. EXTREMITIES: With right foot dressing intact. ASSESSMENT: 1. Status post sepsis with bacteremia secondary to #2. 2. Right foot gangrene with osteomyelitis and abscess, status post incision and drainage. 3. Peripheral vascular disease with a history of left lower extremity bypass graft. 4. Diabetes. PLAN: Stable, continue wound care as per podiatry and anticipate treating for 6 weeks for osteomyelitis, pending PICC DW staff Problems: Consultation Date/Type/Reason Admit Date/Time May 14, 2016 at 16:37 Initial Consult Date 05/16/16 Type of Consultation: ID Exam/Review of Systems Vital Signs Vitals Vital Signs Date Time Temp Pulse Resp B/P Pulse Ox O2 Delivery O2 Flow Rate FiO2 05/24/16 11:24 71 154/74 Room Air 05/24/16 08:05 98.6 21 96 Intake and Output 05/23/16 05/23/16 05/24/16 15:00 23:00 07:00 Intake Total 600 ml 1170 ml 420 ml Output Total 300 ml Balance 600 ml 1170 ml 120 ml Results Result Diagram: 05/24/16 0534 05/24/16 0530 Results 24 hrs Laboratory Tests Test 05/23/16 18:29 05/23/16 20:47 05/24/16 05:30 05/24/16 05:34 Bedside Glucose 138 161 Anion Gap 10 Blood Urea Nitrogen 13 Calcium Level 8.0 L Carbon Dioxide Level 24 Chloride Level 112 H Creatinine 1.06 Glucose Level 95 Magnesium Level 1.7 Potassium Level 3.6 Sodium Level 142 Basophils # 0.0 Basophils % 0.3 Eosinophils # 0.3 Eosinophils % 3.4 Hematocrit 26.5 L Hemoglobin 8.2 L Lymphocytes # 2.3 Lymphocytes % 29.0 Mean Corpuscular Hemoglobin 26.9 L Mean Corpuscular Hemoglobin Concent 30.9 L Mean Corpuscular Volume 86.9 Mean Platelet Volume 10.2 Monocytes # 0.6 Monocytes % 8.2 Neutrophils # 4.6 Neutrophils % 58.1 Nucleated Red Blood Cells # 0.0 Nucleated Red Blood Cells % 0.0 Platelet Count 446 H Red Blood Count 3.05 L Red Cell Distribution Width 16.1 H White Blood Count 7.8 Test 05/24/16 08:10 05/24/16 12:19 Bedside Glucose 90 91 Medications Medications Current Medications Acetaminophen (Tylenol Tab) 650 mg Q6H PRN PO PAIN LEVEL 1-3 OR FEVER Last administered on 05/21/16 20:51; Admin Dose 650 MG; Start 05/14/16 at 17:30 Acetaminophen/ Hydrocodone Bitart ([place] (5/325)) 1 tab Q6H PRN PO MODERATE PAIN LEVEL 4-6 Last administered on 05/24/16 10:07; Admin Dose 1 TAB; Start at 17:30 Morphine Sulfate (morphine) 2 mg Q4H PRN IV SEVERE PAIN LEVEL 7-10 Last administered on 05/24/16 12:25; Admin Dose 2 MG; Start 05/14/16 at 17:30 Docusate Sodium (Colace) 100 mg Q12H PRN PO CONSTIPATION Last administered on 10:07; Admin Dose 100 MG; Start 05/14/16 at 17:30 Magnesium Hydroxide (Milk Of Mag) 30 ml DAILY PRN PO CONSTIPATION Last administered on 05/24/16 10:07; Admin Dose 30 ML; Start 05/14/16 at 17:30 Sodium Biphosphate/ Sodium Phosphate (Fleet Enema) 133 ml DAILY PRN MD CONSTIPATION Last administered on 05/17/16 14:15; Admin Dose 133 ML; Start at 17:30 Lorazepam (Ativan) 0.5 mg Q6H PRN IV ANXIETY; Start 05/14/16 at 17:30 Nitroglycerin (Nitroglycerin (Sl Tab) 0.4 Mg) 1 tab Q5M PRN SL ANGINA; Start at 17:30 Aspirin (Aspirin) 81 mg DAILY PO Last administered on 05/24/16 08:25; Admin Dose 81 MG; Start 05/15/16 at 09:00 Atorvastatin Calcium (Lipitor) 10 mg QHS PO Last administered on 05/23/16 20: 50; Admin Dose 10 MG; Start 05/14/16 at 21:00 Heparin Sodium (Porcine) (Heparin (5000 Units/0.5 ml)) 5,000 unit BID SC Last administered on 05/24/16 08:43; Admin Dose 5,000 UNIT; Start 05/14/16 at 21:00 Miscellaneous Information 1 ea NOTE XX ; Start 05/14/16 at 19:30 Glucose (Glutose) 15 gm Q15M PRN PO DECREASED GLUCOSE; Start 05/14/16 at 19:30 Glucose (Glutose) 22.5 gm Q15M PRN PO DECREASED GLUCOSE; Start 05/14/16 at 19: 30 Dextrose (D50w Syringe) 25 ml Q15M PRN IV DECREASED GLUCOSE; Start 05/14/16 at 19:30 Dextrose (D50w Syringe) 50 ml Q15M PRN IV DECREASED GLUCOSE; Start 05/14/16 at 19:30 Glucagon (Glucagen) 1 mg Q15M PRN IM DECREASED GLUCOSE; Start 05/14/16 at 19:30 Glucose (Glutose) 15 gm Q15M PRN BUCCAL DECREASED GLUCOSE; Start 05/14/16 at 19 :30 Zolpidem Tartrate (Ambien) 10 mg HS PRN PO INSOMNIA; Start 05/14/16 at 23:00 Guaifenesin/ Codeine Phosphate (Robitussin Ac Liquid Cup) 5 ml Q4H PRN PO COUGH ; Start 05/17/16 at 11:30 Metoclopramide HCl 10 mg 10 mg Q6H PRN IV N/V Last administered on 05/21/16 01 :30; Admin Dose 10 MG; Start 05/18/16 at 22:00 Ondansetron HCl/ Sodium Chloride (Zofran Inj/NS) 54 ml @ 216 mls/hr Q6H PRN IV NAUSEA AND/OR VOMITING Last administered on 05/19/16 13:38; Admin Dose 216 MLS/HR; Start 05/18/16 at 22:00 Hydralazine HCl (Apresoline) 10 mg Q4H PRN IV for sys bp > 160 Last administered on 05/24/16 10:11; Admin Dose 10 MG; Start 05/19/16 at 17:00 Insulin Glargine (Lantus) 10 unit QHS SC Last administered on 05/23/16 20:57; Admin Dose 10 UNIT; Start 05/20/16 at 21:00 Metoclopramide HCl (Reglan) 5 mg TID PO Last administered on 05/24/16 12:22; Admin Dose 5 MG; Start 05/20/16 at 21:00 Collagenase (Santyl) 1 applic DAILY TOP Last administered on 05/24/16 08:29; Admin Dose 1 APPLIC; Start 05/21/16 at 09:00 Metoprolol Tartrate 50 mg 50 mg BID PO Last administered on 05/24/16 08:29; Admin Dose 50 MG; Start 05/22/16 at 21:00 Ceftriaxone Sodium 50 ml @ 100 mls/hr Q24H IVPB Last administered on 15:43; Admin Dose 100 MLS/HR; Start 05/23/16 at 14:00 Metronidazole (Flagyl 500 Mg (Pmx)) 100 ml @ 100 mls/hr Q8 IVPB Last administered on 05/24/16 05:52; Admin Dose 100 MLS/HR; Start 05/23/16 at 14:00 IV Flush (NS 10 ml) 10 ml PRN PRN IV IV PROTOCOL Last administered on 12:26; Admin Dose 10 ML; Start 05/23/16 at 18:00 Sodium Hypochlorite (Dakin'S (1/4 Strength)) 1 applic BID IRR Last administered on 05/24/16 08:25; Admin Dose 1 APPLIC; Start 05/23/16 at 21:00 Famotidine (Pepcid) 20 mg Q12 PO ; Start 05/24/16 at 21:00 Benazepril HCl (Lotensin) 40 mg DAILY PO ; Start 05/25/16 at 09:00 Hydralazine HCl (Apresoline) 100 mg TID PO Last administered on 05/24/16 12:22 ; Admin Dose 100 MG; Start 05/24/16 at 13:00 [employer] May 24, 2016 13:03
[2016-05-24] MEDS: CEFTRIAXONE 2 GM/50 ML (PMX) 50 ML IVPB SCH (16:23)
[2016-05-24] MEDS: ATORVASTATIN 10 MG TAB PO SCH (21:14)
[2016-05-24] MEDS: INSULIN GLARGINE [LANtus] 3 ML PEN SC SCH (21:24)
[2016-05-25] VITALS (8 sets, daily range): BP systolic 151–203; BP diastolic 68–95; PULSE 65–83; RESP 18
[2016-05-25] MEDS: morphine 2 MG INJ IV PRN ×4 (02:34→19:59)
[2016-05-25 05:39] LABS: ADD SCAN DIFF NO
[2016-05-25 05:47] LABS: BASOPHILS % 0.3 % (0.0-2.0); EOSINOPHILS # 0.2 10^3/ul (0.0-0.5); EOSINOPHILS % 2.4 % (0.0-7.0); HEMATOCRIT 28.1 % (42.0-52.0); HEMOGLOBIN 8.8 g/dl (14.0-18.0); LYMPHOCYTES # 2.1 10^3/ul (0.8-2.9); LYMPHOCYTES % 24.3 % (15.0-51.0); MEAN CORPUSCULAR HEMOGLOBIN 27.1 pg (29.0-33.0); MEAN CORPUSCULAR HGB CONC 31.3 g/dl (32.0-37.0); MEAN CORPUSCULAR VOLUME 86.5 fl (82.0-101.0); MONOCYTE # 0.7 10^3/ul (0.3-0.9); MONOCYTES % 7.5 % (0.0-11.0); NEUTROPHIL # 5.7 10^3/ul (1.6-7.5); NEUTROPHILS % 64.7 % (39.0-77.0); PLATELET COUNT 448 10^3/UL (140-415); RED BLOOD COUNT 3.25 10^6/ul (4.70-6.10); WHITE BLOOD COUNT 8.8 10^3/ul (4.8-10.8)
[2016-05-25] MEDS: metroNIDAZOLE 500 MG/NS (PMX) 100 ML IVPB SCH ×3 (06:04→22:09)
[2016-05-25] MEDS: FUROSEMIDE 20 MG TAB PO SCH ×2 (06:07→18:19)
[2016-05-25] MEDS: HYDROCODONE/APAP (5/325) TAB PO PRN ×3 (06:10→23:52)
[2016-05-25] MEDS: hydrALAzine 20 MG INJ IV PRN ×3 (06:11→20:38)
[2016-05-25 06:21] LABS: POTASSIUM 3.7 mmol/L (3.5-5.1)
[2016-05-25 06:24] LABS: CALCIUM 8.1 mg/dl (8.4-10.2)
[2016-05-25] MEDS: INSULIN ASPART [NOVOLOG] 3 ML PEN SC SCH ×4 (08:15→20:58)
[2016-05-25] MEDS: METOPROLOL 50 MG TAB PO SCH ×2 (08:43→22:03)
[2016-05-25] MEDS: FAMOTIDINE 20 MG TAB PO SCH ×2 (08:43→21:05)
[2016-05-25] MEDS: BENAZEPRIL 20 MG TAB PO SCH (08:43)
[2016-05-25] MEDS: ASPIRIN 81 MG TAB PO SCH (08:44)
[2016-05-25] MEDS: METOCLOPRAMIDE 5 MG TAB PO SCH ×3 (08:44→20:39)
[2016-05-25] MEDS: HEPARIN 5,000 UNIT/0.5 ML SYG SC SCH ×2 (08:51→21:01)
[2016-05-25] MEDS: COLLAGENASE 30 GM TUBE TOP SCH (10:57)
[2016-05-25] MEDS: SODIUM HYPOCHLORITE 0.125% 473 ML BTL IRR SCH ×2 (10:57→21:05)
[2016-05-25] MEDS: METOCLOPRAMIDE 10 MG INJ IV PRN (12:47)
[2016-05-25] MEDS: CEFTRIAXONE 2 GM/50 ML (PMX) 50 ML IVPB SCH (15:40)
[2016-05-25] MEDS: ATORVASTATIN 10 MG TAB PO SCH (20:39)
[2016-05-25] MEDS: INSULIN GLARGINE [LANtus] 3 ML PEN SC SCH (20:59)
[2016-05-26 01:45] VITALS: BP 155/68; PULSE 67
[2016-05-26] MEDS: metroNIDAZOLE 500 MG/NS (PMX) 100 ML IVPB SCH ×2 (06:01→13:51)
[2016-05-26] MEDS: HYDROCODONE/APAP (5/325) TAB PO PRN ×2 (06:10→13:50)
[2016-05-26] MEDS: FUROSEMIDE 20 MG TAB PO SCH (06:37)
[2016-05-26] MEDS: INSULIN ASPART [NOVOLOG] 3 ML PEN SC SCH ×2 (08:15→12:12)
[2016-05-26 08:30] VITALS: BP 202/83; PULSE 65; RESP 16
[2016-05-26] MEDS: ASPIRIN 81 MG TAB PO SCH (08:46)
[2016-05-26] MEDS: METOCLOPRAMIDE 5 MG TAB PO SCH ×2 (08:46→12:11)
[2016-05-26] MEDS: FAMOTIDINE 20 MG TAB PO SCH (08:46)
[2016-05-26] MEDS: METOPROLOL 50 MG TAB PO SCH (08:48)
[2016-05-26] MEDS: BENAZEPRIL 20 MG TAB PO SCH (08:49)
[2016-05-26] MEDS: COLLAGENASE 30 GM TUBE TOP SCH (08:49)
[2016-05-26] MEDS: SODIUM HYPOCHLORITE 0.125% 473 ML BTL IRR SCH (08:49)
[2016-05-26] MEDS: HEPARIN 5,000 UNIT/0.5 ML SYG SC SCH (08:59)
[2016-05-26] MEDS: morphine 2 MG INJ IV PRN (09:27)
[2016-05-26 10:00] VITALS: BP 194/90; PULSE 62
[2016-05-26 11:00] VITALS: BP 175/79; PULSE 65
[2016-05-26] MEDS: hydrALAzine 20 MG INJ IV PRN (11:11)
[2016-05-26] MEDS ORDERED: AMLODIPINE 5 MG TAB PO SCH (13:30)
[2016-05-26] MEDS: CEFTRIAXONE 2 GM/50 ML (PMX) 50 ML IVPB SCH (15:18)
--- NOTE | 2016-05-26 19:57 | DS ---
DATE OF ADMISSION: 05/14/2016 DATE OF DISCHARGE: 05/26/2016 CONSULTANTS: 1. Dr. Hamzah Yu. 2. Dr. Sushant Craven. 3. Dr. Endy Arguello. DIAGNOSES: 1. 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 2. Osteomyelitis, left foot. 3. Essential hypertension. 4. Sepsis. 5. Dyslipidemia. 6. Diabetes mellitus type 2. 7. History of peripheral vascular disease. 8. Right eye ptosis. MEDICATIONS: 1. Norvasc 5 mg 1 tab p.o. daily. 2. Clonidine 0.1 mg 1 tab p.o. q. 8 hours p.r.n. 3. Metoprolol tartrate 50 mg p.o. b.i.d. 4. Hydralazine 100 mg p.o. t.i.d. 5. Lasix 20 mg p.o. b.i.d. 6. Benazepril 40 mg p.o. daily. 7. Lantus 25 units at bedtime. 8. Aspirin 81 mg daily. 9. Lipitor 10 mg p.o. at bedtime. 10. Insulin lispro 10 units subq before meals. 11. Santyl. 12. Colace 100 mg. 13. Pepcid 20 mg b.i.d. 14. Reglan 5 mg. 15. Sodium hypochlorite Dakin's. 16. Flagyl 500 mg p.o. t.i.d. x6 weeks. 17. Rocephin 1 gram IV q. 24 hours x6 weeks. 18. Combivent breathing treatment q.i.d. p.r.n. ALLERGIES: NO KNOWN DRUG ALLERGIES. HOSPITAL COURSE: This is a 50-year-old gentleman with past medical history of dyslipidemia, hyperte nsion, diabetes mellitus x2, peripheral vascular disease, left foot osteomyelitis and vascular bypas s surgery in the left lower extremity who presented complaining of 3 days of right foot swelling. T he patient has been having subjective fever at home with mild chest pressure and is having discharge from the right foot and the ulcer, a combination of blood and pus, at home. He became concerned an d he called his podiatry, Dr. Craven and was told to go to the emergency room. He was found to have fever of 103.6. Blood culture shows alpha hemolytic strep and Bacteroides fragilis. Blood culture #2, Strep agalactiae. Wound culture Morganella morganii and alpha hemolytic strep. Urine culture negative. The Gram stain was evaluated by the infectious disease physician and the patient was plac ed on Flagyl and Rocephin. He was also seen and evaluated by the podiatry during this course of hos pitalization and on 05/17/2016, the patient was taken to OR for surgical debridement of the necrotic open wound of the right foot using sharp instruments to muscle tissue measuring 5 x 5 cm incision a nd drainage of right foot abscess. Patient tolerated the procedure well and was taken to recovery r oom and was continued to be evaluated by the medical team, podiatry and infectious disease doctor. Wound care nurse was also consulted and the drainage site was continued to be monitored on a daily b asis. Patient was found to have malignant hypertension. This is the first time during the course o f hospitalization the patient has been found to have hypertension and he was started on benazepril s econdary to his history of diabetic mellitus. Despite being on benazepril, the patient was continue d to have elevated blood pressure. Therefore, he was placed on metoprolol and was placed on hydrala zine. The patient has been having labile blood pressure but the patient has been ranging between 13 0s to 200 this morning and his blood pressure was found to be elevated, although after the medicatio n blood pressure started to improve. He states his blood pressure, which is around 150 he get s lightheadedness and started having some nausea this morning. He has been able to tolerate his ora l intake. His blood glucose has been stable on Lantus and premeal insulin. Also, he has been place d on insulin sliding scale. At this time, patient is medically stable to be discharged home. Home health has been set up for wound care. He needs to be continued on IV Rocephin and oral Flagyl and also needs to follow up with podiatry on a weekly basis and also needs to be followed up with his [facility] care physician as outpatient. In case of having any chest pain, shortness of breath, worsenin g of the right foot wound, patient needs to return to the emergency room immediately. LABORATORY: WBC 8.8, hemoglobin 8.8, hematocrit 28.1, platelets 448. Sodium 141, potassium 3.7, ch loride 100, bicarbonate 24, BUN 12, creatinine 1, glucose 78, calcium 8.1. CONDITION AT TIME OF DISCHARGE: Stable. Dictated By: LOUANN MONTIEL MD PN/NTS Conf#: [id number] DID#: [id number] CC: ([facility]) HCP;*EndCC*
== END 2016-05-26 16:33 | disposition home health service (06) | DRG 854 ==
LOC: E/R 13:12 → MS2 16:37
PROVIDERS: ADMIT Hospitalist; ATTEND Hospitalist
PROC: 0SBM0ZZ Excision of Right Metatarsal-Phalangeal Joint, Open Approach (ICD-10-PCS; principal; 2016-05-17 18:30)
PROC: 02HV33Z Insertion of Infusion Device into Superior Vena Cava, Percutaneous Approach (ICD-10-PCS; 2016-05-23)
DX: A41.9 Sepsis, unspecified organism (principal); I70.261 Atherosclerosis of native arteries of extremities with gangrene, right leg; E11.42 Type 2 diabetes mellitus with diabetic polyneuropathy; E11.52 Type 2 diabetes mellitus with diabetic peripheral angiopathy with gangrene; M86.171 Other acute osteomyelitis, right ankle and foot; L03.115 Cellulitis of right lower limb; L02.611 Cutaneous abscess of right foot; E11.621 Type 2 diabetes mellitus with foot ulcer; E78.5 Hyperlipidemia, unspecified; H02.401 Unspecified ptosis of right eyelid; B96.89 Other specified bacterial agents as the cause of diseases classified elsewhere; L97.514 Non-pressure chronic ulcer of other part of right foot with necrosis of bone; B95.0 Streptococcus, group A, as the cause of diseases classified elsewhere; Z79.4 Long term (current) use of insulin; Z87.891 Personal history of nicotine dependence
CPT/HCPCS: 36415; 36569; 71010; 73630; 73718; 75635; 76937; 80048; 80053; 80061; 80202; 81001; 81003; 82962; 83036; 83605; 83735; 84100; 84439; 84443; 84484; 85025; 85610; 85651; 85730; 87040; 87070; 87075; 87086; 87102; 90686; 93005; 93923; 93970; 96365; 96366; 96375; 96376; 97116; 97162; 97530; C1769; J0360; J1170; J1815; J1940; J2175; J2270; J2405; J2543; J2765; J3370; J3480; J7030; J7042; J7050; Q9967